=== PATIENT | female | born 1965 | race African-American/Black ===

== ENCOUNTER → 2020-06-05 09:09 | Outpatient (BNVA) | payer MEDICAID, SELFPAY | PROVIDERS: PCP Internal Medicine; Referring Provider Internal Medicine; Visit Provider Nurse Practitioner Family | DX: M54.12 Radiculopathy, cervical region (principal); G56.03 Carpal tunnel syndrome, bilateral upper limbs | CPT/HCPCS: 99202 ==

== ENCOUNTER 2020-09-03 12:34 | Emergency (ER) | payer MEDICAID, SELFPAY ==
--- NOTE | ~2020-09-03 | CT_ITS ---
EXAMINATION: CT ABDOMEN AND PELVIS WITHOUT CONTRAST CLINICAL INFORMATION: Dysuria, hematuria and bilateral flank pain COMPARISON: None TECHNIQUE: Multidetector volumetric imaging was performed from the superior aspect of the liver through the pubic symphysis. Sagittal and coronal reformatted images were obtained on the technologist's workstation. This CT examination was performed using dose optimization techniques as appropriate, variously including the following: *Automated exposure control *Adjustment of mA and/or kV according to patient size (this includes techniques or standardized protocols for targeted exams where dose is matched to indication/reason for exam; i.e. extremities or head) *Use of iterative reconstruction technique DLP: 474 mGy-cm FINDINGS: LUNG BASES: The heart size is normal. There is a small 1.4 cm cyst right lower lobe. LIVER, GALLBLADDER, AND BILIARY TREE: The liver is normal in size, shape, and attenuation. No focal hepatic lesion or biliary ductal dilatation is present. The gallbladder is unremarkable with no evidence of radiopaque gallstones, gallbladder wall thickening, or obvious pericholecystic inflammatory changes. PANCREAS: Unremarkable. SPLEEN: Unremarkable. ADRENAL GLANDS: Unremarkable. KIDNEYS AND URETERS: The kidneys are normal in size, shape, and attenuation. No hydronephrosis, hydroureter, or calculi seen. No perinephric stranding. BLADDER: Unremarkable. GASTROINTESTINAL TRACT: There is moderate scattered stool seen throughout the colon without disc distention. The small bowel loops are normal caliber. Appendix is normal caliber. No inflammatory process seen in the abdomen. ABDOMINAL WALL: There is a small apical hernia containing fat. LYMPH NODES: No abnormal lymph nodes seen. VASCULAR: Unremarkable. PELVIC VISCERA: The uterus is anteverted and appears unremarkable. Scattered phleboliths are seen in pelvis. There is no free fluid. OSSEOUS STRUCTURES: There is mild ventral spondylosis L3-L4, L2-L3 disc levels. CT/CT abdomen pelvis wo con IMPRESSION: No acute intraabdominal process seen. No radiopaque renal calculi or hydroureteronephrosis. Mild constipation.
[2020-09-03 12:45] VITALS: BP 113/74; PULSE 69; RESP 18; TEMP 36.8; O2SAT 98; BMI 22.7
[2020-09-03] MEDS: 0.9 % Sodium Chloride 1,000 ML 999 ML IV (13:28)
--- NOTE | 2020-09-03 13:33 | PC.NURSE ---
THIS RN WAS PRESENT FOR RECTAL EXAM. PT TOLERATED PROCEDURE WELL.
--- NOTE | 2020-09-03 13:38 | ED_ITS ---
HPI - General Adult General Chief complaint: Abdominal Pain <KEY Victoria - Last Filed: 09/03/20 21:30> Stated complaint: abd pain <KEY Victoria - Last Filed: 09/03/20 21:30> Time Seen by Provider: 09/03/20 13:00 <KEY Victoria - Last Filed: 09/03/20 21:30> Source: patient <KEY Victoria - Last Filed: 09/03/20 21:30> Mode of arrival: ambulatory <KEY Victoria - Last Filed: 09/03/20 21:30> Limitations: no limitations <KEY Victoria - Last Filed: 09/03/20 21:30> History of Present Illness HPI narrative: Patient presents to the ED for bilateral flank pain, dysuria, no hematuria. Patient states having flank pain for the past week on the past 2 days with slight hematuria. Patient states her urine seems more concentrated. Patient states history of kidney stones over 12 years ago. Patient states also she thinks she had episode of rectal bleeding while on the toilet. Patient states history of hemorrhoids. Patient states 2 years ago she had colonoscopy which showed she had polyps. Patient denies any weight loss, vomiting blood or profuse rectal bleeding. Patient states she has had intermittent rectal bleeding due to hemorrhoids for over 1 year and her PCP is aware. <KEY Victoria - Last Filed: 09/03/20 21:30> Related Data Home medications: Home Medications Medication Instructions Recorded Confirmed cyclobenzaprine 5 mg tablet 5 mg PO TID PRN 06/05/20 gabapentin 100 mg capsule 100 mg PO TID 06/05/20 ibuprofen 600 mg tablet 600 mg PO TID 06/05/20 lidocaine 5 % topical patch 1 patch TOPICAL DAILY 06/05/20 magnesium oxide 500 mg capsule 500 mg PO DAILY 06/05/20 sertraline 100 mg tablet 100 mg PO DAILY 06/05/20 Previous Rx's Medication Instructions Recorded ondansetron HCl [Zofran] 4 mg PO Q6H PRN #8 tab 09/03/20 polyethylene glycol 3350 [Miralax] 17 g PO DAILY 4 Days #4 ea 09/03/20 tramadol 50 mg PO TID PRN #6 tab 09/03/20 <KEY Victoria - Last Filed: 09/03/20 21:30> Allergies/adverse reactions: Allergies Allergy/AdvReac Type Severity Reaction Status Date / Time penicillamine [PENICILLAMINE] Allergy Intermediate HIVES Verified 09/03/20 12:45 tomato [TOMATO] Allergy Unknown UNKNOWN Verified 09/03/20 12:45 <KEY Victoria Last Filed: 09/03/20 21:30> Review of Systems Review of Systems: Yes all other systems are reviewed and are negative <KEY Victoria - Last Filed: 09/03/20 21:30> Constitutional: Constitutional: Reports as per HPI and Reports no additional constitutional complaints <KEY Victoria Last Filed: 09/03/20 21:30> Eyes: Eyes: Reports as per HPI and Reports no additional eye complaints <KEY Victoria - Last Filed: 09/03/20 21:30> ENT: Reports system reviewed and no additional complaints, except as documented and Reports as per HPI <KEY Victoria Last Filed: 09/03/20 21:30> Cardiovascular: Cardiovascular: Reports as per HPI and Reports no additional cardiovascular complaints <KEY iVctoria Last Filed: 09/03/20 21:30> Respiratory: Respiratory: Reports as per HPI and Reports no additional respiratory complaints <KEY Victoria Last Filed: 09/03/20 21:30> Gastrointestinal: Gastrointestinal: Reports as per HPI, Reports no additional gastrointestinal complaints and Reports abdominal pain (Low abdominal pain. Bilateral flank pain) <KEY Victoria Last Filed: 09/03/20 21:30> Genitourinary: Genitourinary: Reports no additional female genitourinary co mplaints, Reports as per HPI, Reports hematuria, Reports dysuria and Reports flank pain <KEY Victoria Last Filed: 09/03/20 21:30> Musculoskeletal: Musculoskeletal: Reports no additional musculoskeletal complaints and Reports as per HPI <KEY Victoria Last Filed: 09/03/20 21:30> Neurologic: Reports system reviewed and no additional complaints, except as documented and Reports as per HPI <KEY Victoria Last Filed: 09/03/20 21:30> Psychiatric: Psychiatric: Reports no additional psychiatric complaints and Reports as per HPI <KEY Victoria - Last Filed: 09/03/20 21:30> [facility] Past Medical History Medical History: Medical History (Updated 09/04/20 @ 00:01 by Antoni Bazan) Anxiety Depression Fibromyalgia Left renal mass <KEY Victoria - Last Filed: 09/03/20 21:30> Surgical History: Surgical History (Updated 09/03/20 @ 12:49 by Mary Woodward) H/O tubal ligation <KEY Victoria - Last Filed: 09/03/20 21:30> Social History Social History: Social History Advance Directives: No Advance Directives Information Provided: No <KEY Victoria - Last Filed: 09/03/20 21:30> Physical Exam Vital Signs: Vital Signs: Last Vital Signs Temp 98.7 F 09/03/20 15:25 Pulse 58 09/03/20 15:25 Resp 16 09/03/20 15:25 BP 125/84 09/03/20 15:25 Pulse Ox 100 09/03/20 15:25 Body Mass Index 22.7 <KEY Victoria - Last Filed: 09/03/20 21:30> Vital Signs: Last Vital Signs Temp 98.7 F 09/03/20 15:25 Pulse 58 09/03/20 15:25 Resp 16 09/03/20 15:25 BP 125/84 09/03/20 15:25 Pulse Ox 100 09/03/20 15:25 Body Mass Index 22.7 <Uche Lu MD - Last Filed: 09/23/20 08:04> Const: General: cooperative, healthy appearing, comfortable, no acute distress, well developed, alert, awake and Physically active <KEY Victoria - Last Filed: 09/03/20 21:30> Orientation/consciousness: patient oriented x3 <KEY Victoria Last F iled: 09/03/20 21:30> HENMT: Head: Yes normal to inspection, Yes No palpable skull fracture present, Yes normocephalic and Yes atraumatic <KEY Victoria - Last Filed: 09/03/20 21:30> Eyes: General: appearance normal, both eyes and all related structures <KEY Victoria - Last Filed: 09/03/20 21:30> Neck: Neck: Yes normal visual inspection, Yes full ROM, Yes no lymphadenopathy, Yes no meningeal signs, Yes trachea midline, Yes supple and No tender <KEY Victoria Last Filed: 09/03/20 21:30> Chest: Chest palpation & inspection: normal inspection of the chest and normal palpation of entire chest wall <KEY Victoria Last Filed: 09/03/20 21:30> Resp: Effort & Inspection: normal respiratory effort and able to speak in complete sentences <KEY Victoria Last Filed: 09/03/20 21:30> Auscultation: clear to auscultation bilaterally <KEY Victoria Helio ed: 09/03/20 21:30> Cardio: Jugular venous distension: no JVD <KEY Victoria Last Filed: 09/03/20 21:30> Heart sounds: S1 normal heart sound present and S2 normal heart sound present <KEY Victoria Last Filed: 09/03/20 21:30> GI: Other: Rectal exam negative for any vu blood. Stool is brown <KEY Victoria Last Filed: 09/03/20 21:30> Inspection: Yes normal to inspection and No abdominal wall ecchymosis <KEY Victoria Last Filed: 09/03/20 21:30> Palpation (GI): not soft, not firm, Tenderness to palpation present (GI) in the LLQ, no guarding and not rigid <KEY Victoria Last Filed: 09/03/20 21:30> : General: Yes CVA tenderness (right) <KEY Victoria Last Filed: 21:30> Back/Spine/Pelvis: Back: CVA tenderness (right) <KEY Victoria Last Filed: 09/03/20 21:30> Skin: General skin exam: no rashes or lesions noted and elasticity normal <KEY Victoria Last Filed: 09/03/20 21:30> Neuro: General: patient oriented x3, gait normal, no meningeal signs and CN's II-XI intact bilaterally <KEY Victoria Last Filed: 09/03/20 21:30> Extrem: General: Yes normal to inspection and Yes full ROM <KEY Victoria - Last Filed: 09/03/20 21:30> Psych: Appearance: grossly normal, well kempt and not disheveled <KEY Victoria - Last Filed: 09/03/20 21:30> Course Course Course Narrative: Patient have urinalysis, basic labs, and occult stool guaiac sent. <KEY Victoria - Last Filed: 09/03/20 21:30> I have reviewed the chart <Uche Lu MD - Last Filed: 09/23/20 08:04> Reevaluation(s) Reevaluation #1: Patient occult stool came back negative. Patient's urine shows blood so patient was sent for CT scan of abdomen and pelvis. CT scan abdomen pelvis negative for kidney stones, ureteral stones, pyelonephritis, appendicitis, colitis, any other intra-abdominal/pelvic process. Patient given Toradol for pain relief. She states she is not sexually active and is celebate. Patient is menopausal. Patient was Asked to confirm is bleeding came from urethral or vaginal vault and patient states blood is coming from urethra. Patient states she only sees blood when she urinated. Does not want pelvic exam. Patient was informed if she starts having actual vaginal bleeding then she must follow up with her OBGYN to rule out endometrial cancer. Abdominal CT scan shows constipation <KEY Victoria - Last Filed: 09/03/20 21:30> Time: 16:16 <KEY Victoria - Last Filed: 09/03/20 21:30> Medical Decision Making MDM Narrative Medical decision making narrative: Hematuria. Abdominal pain <KEY Victoria - Last Filed: 09/03/20 21:30> Lab Data Result diagrams: : 09/03/20 13:27 09/03/20 13:27 <KEY Victoria - Last Filed: 09/03/20 21:30> Labs: Lab Results 09/03/20 09/03/20 09/03/20 Range/Units 13:01 13:10 13:27 WBC 5.0 (4.8-10.8) X10*3/uL RBC 4.32 (4.20-5.50) X10*6/uL Hgb 13.1 (12.0-16.0) g/dl Hct 39.7 (37-47) % MCV 91.9 (80-98) fL MCH 30.3 (27.0-33.0) pg MCHC 33.0 (31.0-35.0) g/dl RDW 12.9 (11.0-16.0) % Plt Count 264 (160-400) X10*3/uL MPV 9.5 (9.4-12.3) fL Immature Gran % (Auto) 0.2 (0.0-0.4) % Neut % (Auto) 45.7 (45-73) % Lymph % (Auto) 40.8 H (20-40) % [place] % (Auto) 10.5 (2-11) % Eos % (Auto) 2.0 (0-4) % Baso % (Auto) 0.8 (0-2) % Lymph # (Auto) 2.0 (1.2-4.9) X10*3/uL [place] # (Auto) 0.5 (0.1-1.2) X10*3/uL Eos # (Auto) 0.1 (0.0-0.4) X10*3/uL Baso # (Auto) 0.0 (0.0-0.2) X10*3/uL Abs Immat Gran (auto) 0.01 (0.00-0.03) X10*3/uL Absolute Neuts (auto) 2.3 (2.0-8.3) X10*3/uL Absolute Nucleated RBC 0.000 (0.0-0.012) X10*3/uL Nucleated RBC % (auto) 0.0 (0.0-0.2) /100WBC PT (10.8-13.0) SEC INR (0.9-1.1) APTT (24.1-38.0) SEC Sodium (135-145) mmol/L Potassium (3.3-5.1) mmol/L Chloride (96-108) mmol/L Carbon Dioxide (22-29) mmol/L Anion Gap (12-20) BUN (9-16) mg/dL Creatinine (0.5-1.4) mg/dL Estim Creat Clear Calc Estimated GFR Random Glucose (60-115) mg/dL Calcium (8.4-10.2) mg/dL Total Bilirubin (0.0-1.0) mg/dL AST (5-31) U/L ALT (0-31) U/L Alkaline Phosphatase (39-117) U/L Total Protein (6.5-8.0) g/dL Albumin (3.5-5.0) g/dL Urine Color YELLOW Urine Appearance CLOUDY Urine pH 6.5 (5.0-8.0) Ur Specific [place] 1.010 (1.005-1.025) Urine Protein TRACE (NEG-TRACE) MG/DL Urine Glucose (UA) NEG (NEG) MG/DL Urine Ketones NEG (NEG) MG/DL Urine Blood 3+ H (NEG) Urine Nitrite NEG (NEG) Ur Leukocyte Esterase NEG (NEG) Urine RBC 76-150 H (0) /HPF Urine WBC 0-2 (0-4) /HPF Ur Squamous Epith Cells 1+ /LPF Urine Bacteria NONE /LPF Stool Occult Blood NEG (NEG) 09/03/20 09/03/20 Range/Units 13:27 13:27 WBC (4.8-10.8) X10*3/uL RBC (4.20-5.50) X10*6/uL Hgb (12.0-16.0) g/dl Hct (37-47) % MCV (80-98) fL MCH (27.0-33.0) pg MCHC (31.0-35.0) g/dl RDW (11.0-16.0) % Plt Count (160-400) X10*3/uL MPV (9.4-12.3) fL Immature Gran % (Auto) (0.0-0.4) % Neut % (Auto) (45-73) % Lymph % (Auto) (20-40) % [place] % (Auto) (2-11) % Eos % (Auto) (0-4) % Baso % (Auto) (0-2) % Lymph # (Auto) (1.2-4.9) X10*3/uL [place] # (Auto) (0.1-1.2) X10*3/uL Eos # (Auto) (0.0-0.4) X10*3/uL Baso # (Auto) (0.0-0.2) X10*3/uL Abs Immat Gran (auto) (0.00-0.03) X10*3/uL Absolute Neuts (auto) (2.0-8.3) X10*3/uL Absolute Nucleated RBC (0.0-0.012) X10*3/uL Nucleated RBC % (auto) (0.0-0.2) /100WBC PT 11.7 (10.8-13.0) SEC INR 1.0 (0.9-1.1) APTT 38.5 H (24.1-38.0) SEC Sodium 141 (135-145) mmol/L Potassium 4.1 (3.3-5.1) mmol/L Chloride 107 (96-108) mmol/L Carbon Dioxide 26 (22-29) mmol/L Anion Gap 12 (12-20) BUN 10 (9-16) mg/dL Creatinine 0.72 (0.5-1.4) mg/dL Estim Creat Clear Calc 83.6 Estimated GFR > 60 Random Glucose 78 (60-115) mg/dL Calcium 9.2 (8.4-10.2) mg/dL Total Bilirubin 0.6 (0.0-1.0) mg/dL AST 15 (5-31) U/L ALT 6 (0-31) U/L Alkaline Phosphatase 78 (39-117) U/L Total Protein 7.7 (6.5-8.0) g/dL Albumin 4.6 (3.5-5.0) g/dL Urine Color Urine Appearance Urine pH (5.0-8.0) Ur Specific [place] (1.005-1.025) Urine Protein (NEG-TRACE) MG/DL Urine Glucose (UA) (NEG) MG/DL Urine Ketones (NEG) MG/DL Urine Blood (NEG) Urine Nitrite (NEG) Ur Leukocyte Esterase (NEG) Urine RBC (0) /HPF Urine WBC (0-4) /HPF Ur Squamous Epith Cells /LPF Urine Bacteria /LPF Stool Occult Blood (NEG) <KEY Victoria - Last Filed: 09/03/20 21:30> Lab Results 09/03/20 09/03/20 09/03/20 Range/Units 13:01 13:10 13:27 WBC 5.0 (4.8-10.8) X10*3/uL RBC 4.32 (4.20-5.50) X10*6/uL Hgb 13.1 (12.0-16.0) g/dl Hct 39.7 (37-47) % MCV 91.9 (80-98) fL MCH 30.3 (27.0-33.0) pg MCHC 33.0 (31.0-35.0) g/dl RDW 12.9 (11.0-16.0) % Plt Count 264 (160-400) X10*3/uL MPV 9.5 (9.4-12.3) fL Immature Gran % (Auto) 0.2 (0.0-0.4) % Neut % (Auto) 45.7 (45-73) % Lymph % (Auto) 40.8 H (20-40) % [place] % (Auto) 10.5 (2-11) % Eos % (Auto) 2.0 (0-4) % Baso % (Auto) 0.8 (0-2) % Lymph # (Auto) 2.0 (1.2-4.9) X10*3/uL [place] # (Auto) 0.5 (0.1-1.2) X10*3/uL Eos # (Auto) 0.1 (0.0-0.4) X10*3/uL Baso # (Auto) 0.0 (0.0-0.2) X10*3/uL Abs Immat Gran (auto) 0.01 (0.00-0.03) X10*3/uL Absolute Neuts (auto) 2.3 (2.0-8.3) X10*3/uL Absolute Nucleated RBC 0.000 (0.0-0.012) X10*3/uL Nucleated RBC % (auto) 0.0 (0.0-0.2) /100WBC PT (10.8-13.0) SEC INR (0.9-1.1) APTT (24.1-38.0) SEC Sodium (135-145) mmol/L Potassium (3.3-5.1) mmol/L Chloride (96-108) mmol/L Carbon Dioxide (22-29) mmol/L Anion Gap (12-20) BUN (9-16) mg/dL Creatinine (0.5-1.4) mg/dL Estim Creat Clear Calc Estimated GFR Random Glucose (60-115) mg/dL Calcium (8.4-10.2) mg/dL Total Bilirubin (0.0-1.0) mg/dL AST (5-31) U/L ALT (0-31) U/L Alkaline Phosphatase (39-117) U/L Total Protein (6.5-8.0) g/dL Albumin (3.5-5.0) g/dL Urine Color YELLOW Urine Appearance CLOUDY Urine pH 6.5 (5.0-8.0) Ur Specific [place] 1.010 (1.005-1.025) Urine Protein TRACE (NEG-TRACE) MG/DL Urine Glucose (UA) NEG (NEG) MG/DL Urine Ketones NEG (NEG) MG/DL Urine Blood 3+ H (NEG) Urine Nitrite NEG (NEG) Ur Leukocyte Esterase NEG (NEG) Urine RBC 76-150 H (0) /HPF Urine WBC 0-2 (0-4) /HPF Ur Squamous Epith Cells 1+ /LPF Urine Bacteria NONE /LPF Stool Occult Blood NEG (NEG) 09/03/20 09/03/20 Range/Units 13:27 13:27 WBC (4.8-10.8) X10*3/uL RBC (4.20-5.50) X10*6/uL Hgb (12.0-16.0) g/dl Hct (37-47) % MCV (80-98) fL MCH (27.0-33.0) pg MCHC (31.0-35.0) g/dl RDW (11.0-16.0) % Plt Count (160-400) X10*3/uL MPV (9.4-12.3) fL Immature Gran % (Auto) (0.0-0.4) % Neut % (Auto) (45-73) % Lymph % (Auto) (20-40) % [place] % (Auto) (2-11) % Eos % (Auto) (0-4) % Baso % (Auto) (0-2) % Lymph # (Auto) (1.2-4.9) X10*3/uL [place] # (Auto) (0.1-1.2) X10*3/uL Eos # (Auto) (0.0-0.4) X10*3/uL Baso # (Auto) (0.0-0.2) X10*3/uL Abs Immat Gran (auto) (0.00-0.03) X10*3/uL Absolute Neuts (auto) (2.0-8.3) X10*3/uL Absolute Nucleated RBC (0.0-0.012) X10*3/uL Nucleated RBC % (auto) (0.0-0.2) /100WBC PT 11.7 (10.8-13.0) SEC INR 1.0 (0.9-1.1) APTT 38.5 H (24.1-38.0) SEC Sodium 141 (135-145) mmol/L Potassium 4.1 (3.3-5.1) mmol/L Chloride 107 (96-108) mmol/L Carbon Dioxide 26 (22-29) mmol/L Anion Gap 12 (12-20) BUN 10 (9-16) mg/dL Creatinine 0.72 (0.5-1.4) mg/dL Estim Creat Clear Calc 83.6 Estimated GFR > 60 Random Glucose 78 (60-115) mg/dL Calcium 9.2 (8.4-10.2) mg/dL Total Bilirubin 0.6 (0.0-1.0) mg/dL AST 15 (5-31) U/L ALT 6 (0-31) U/L Alkaline Phosphatase 78 (39-117) U/L Total Protein 7.7 (6.5-8.0) g/dL Albumin 4.6 (3.5-5.0) g/dL Urine Color Urine Appearance Urine pH (5.0-8.0) Ur Specific [place] (1.005-1.025) Urine Protein (NEG-TRACE) MG/DL Urine Glucose (UA) (NEG) MG/DL Urine Ketones (NEG) MG/DL Urine Blood (NEG) Urine Nitrite (NEG) Ur Leukocyte Esterase (NEG) Urine RBC (0) /HPF Urine WBC (0-4) /HPF Ur Squamous Epith Cells /LPF Urine Bacteria /LPF Stool Occult Blood (NEG) <Uche Lu MD - Last Filed: 09/23/20 08:04> Discharge Plan Discharge Clinical Impression: Hematuria, Bilateral flank pain, Constipation <KEY Victoria - Last Filed: 09/03/20 21:30> Patient Disposition: Home, Self-Care <KEY Victoria - Last Filed: 09/03/20 21:30> Instructions: Constipation (ED), Hematuria (ED), Abdominal Pain (ED), Flank Pain (ED) <KEY Victoria - Last Filed: 09/03/20 21:30> Additional Instructions: Return to the ED immediately for worsening abdominal pain, nausea, vomiting, gross hematuria, urinary/bowel incontinence, paralysis of lower extremities, worsening flank pain, headache, dizziness, chest pain, shortness of breath, inability to tolerate solid food/liquid, or any other concerning symptoms. <KEY Victoria - Last Filed: 09/03/20 21:30> Prescriptions: New polyethylene glycol 3350 [Miralax] 17 gram powder in packet 17 g PO DAILY 4 Days Qty: 4 RF: 0 ondansetron HCl [Zofran] 4 mg tablet 4 mg PO Q6H PRN (Reason: nausea) Qty: 8 RF: 0 tramadol 50 mg tablet 50 mg PO TID PRN (Reason: pain) Qty: 6 RF: 0 <KEY Victoria - Last Filed: 09/03/20 21:30> Referrals: Flory Villar MD [Primary Care Provider] - 2 days (Hematuria) Wong Seth MD [Physician] - 2 days (Hematuria) <KEY Victoria - Last Filed: 09/03/20 21:30> Interventions: ED Discharge Assessment Last Done: 09/03/20 16:50 <KEY Victoria - Last Filed: 09/03/20 21:30> Discharge Date/Time: 09/03/20 16:53 <KEY Victoria - Last Filed: 09/03/20 21:30> Print Language: Ecuadorean <KEY Victoria - Last Filed: 09/03/20 21:30>
[2020-09-03 13:46] LABS: OBS Int Ctl Valid YES; OBS1 NEG (NEG)
[2020-09-03 13:48] LABS: MANUAL DIFF FLAG NO
[2020-09-03 13:54] LABS: Basophils Percent Auto 0.8 % (0-2); Eosinophils Absolute Auto 0.1 X10*3/uL (0.0-0.4); Hematocrit 39.7 % (37-47); Hemoglobin 13.1 g/dl (12.0-16.0); Imm Gran Abs Auto 0.01 X10*3/uL (0.00-0.03); Imm Gran Pct Auto 0.2 % (0.0-0.4); Lymphocytes Percent Auto 40.8 % (20-40); Mean Corpuscular Hemoglobin 30.3 pg (27.0-33.0); Mean Corpuscular Volume 91.9 fL (80-98); Mean Platelet Volume 9.5 fL (9.4-12.3); Monocytes Absolute Auto 0.5 X10*3/uL (0.1-1.2); Monocytes Percent Auto 10.5 % (2-11); Neutrophils Absolute Auto 2.3 X10*3/uL (2.0-8.3); Neutrophils Percent Auto 45.7 % (45-73); Platelet Count 264 X10*3/uL (160-400); Red Blood Count 4.32 X10*6/uL (4.20-5.50); Red Cell Distribution Width 12.9 % (11.0-16.0)
[2020-09-03 13:57] LABS: Prothrombin Time 11.7 SEC (10.8-13.0)
[2020-09-03 14:00] LABS: Partial Thromboplastin Time 38.5 SEC (24.1-38.0)
[2020-09-03 14:03] LABS: Glucose Urine UA NEG (NEG); Leukocyte Esterase Urine NEG (NEG); Nitrite Urine NEG (NEG); PH 6.5 (5.0-8.0); Urine Blood 3+ (NEG); Urine Ketones NEG (NEG); Urine Protein TRACE MG/DL (NEG-TRACE)
[2020-09-03 14:06] LABS: Appearance Urine CLOUDY; Color Urine YELLOW
[2020-09-03 14:17] LABS: Squamous Epithelial Cell Urine 1+ /LPF; WBC Urine 0-2 /HPF (0-4)
[2020-09-03 14:18] LABS: Alanine Aminotransferase 6 U/L (0-31); Albumin Level 4.6 g/dL (3.5-5.0); Alkaline Phosphatase 78 U/L (39-117); Anion Gap 12 (12-20); Aspartate Amino Transferase 15 U/L (5-31); Bilirubin Total 0.6 mg/dL (0.0-1.0); Blood Urea Nitrogen 10 mg/dL (9-16); Calcium 9.2 mg/dL (8.4-10.2); Carbon Dioxide 26 mmol/L (22-29); Chloride 107 mmol/L (96-108); Creatinine Clr Calc Pharmacy 83.6; Estimated Glomerular Filt Rate > 60; Glucose Random 78 mg/dL (60-115); Potassium 4.1 mmol/L (3.3-5.1); Sodium 141 mmol/L (135-145); Total Protein 7.7 g/dL (6.5-8.0)
[2020-09-03 15:25] VITALS: BP 125/84; PULSE 58; RESP 16; TEMP 37.1; O2SAT 100
[2020-09-03] MEDS: Ketorolac Tromethamine 30 MG/ML VIAL IVPUSH (16:17)
== END 2020-09-03 16:53 | disposition home or self-care (01) ==
PROVIDERS: Physician Assistant; Emergency Provider Emergency Medicine; PCP Internal Medicine
DX: R31.0 Gross hematuria (principal); K59.00 Constipation, unspecified; R10.9 Unspecified abdominal pain; Z87.442 Personal history of urinary calculi
CPT/HCPCS: 36415; 74176; 80053; 81001; 81003; 82272; 85025; 85610; 85730; 96361; 96374; 99284; J1885

== ENCOUNTER 2020-10-15 14:05 | Outpatient (REF) | payer MEDICAID, SELFPAY ==
--- NOTE | ~2020-10-15 | US_ITS ---
EXAMINATION: ULTRASOUND PELVIS COMPLETE CLINICAL INFORMATION: DUB COMPARISON: None TECHNIQUE: Transabdominal and transvaginal ultrasound of pelvis is performed. FINDINGS: The uterus is anteverted measuring 7.8 cm in length, 3.3 cm AP and 4.7 cm in transverse dimension. The myometrium is heterogeneous but no focal lesions seen. The endometrium is heterogeneous with subcentimeter cystic areas within. Endometrial thickness measures 0.6 cm. There are small anechoic cyst in the cervix. In addition there are echogenic shadowing area in the cervix measuring 0.7 x 0.5 x 0.6 cm. The left ovary measures 2.8 x 1.3 x 1.8 cm and volume 3.2 mL. Previously it measured 2.7 x 1.5 x 1 0.8 mL and volume 4.0 mL. Right ovary measures 3.4 x 1.2 x 1.8 cm and volume 4.0 mL. Previously measured 3.0 x 1.7 x 2.3 cm and volume 6.1 mL. There is no free fluid in the cul-de-sac. US/US pelvic complete IMPRESSION: Anteverted uterus with heterogenous appearing endometrium with small subcentimeter cyst. Echogenic shadowing area in the cervix, ? calcification.
--- NOTE | ~2020-10-15 | US_ITS ---
EXAMINATION: ULTRASOUND PELVIS COMPLETE CLINICAL INFORMATION: DUB COMPARISON: None TECHNIQUE: Transabdominal and transvaginal ultrasound of pelvis is performed. FINDINGS: The uterus is anteverted measuring 7.8 cm in length, 3.3 cm AP and 4.7 cm in transverse dimension. The myometrium is heterogeneous but no focal lesions seen. The endometrium is heterogeneous with subcentimeter cystic areas within. Endometrial thickness measures 0.6 cm. There are small anechoic cyst in the cervix. In addition there are echogenic shadowing area in the cervix measuring 0.7 x 0.5 x 0.6 cm. The left ovary measures 2.8 x 1.3 x 1.8 cm and volume 3.2 mL. Previously it measured 2.7 x 1.5 x 1 0.8 mL and volume 4.0 mL. Right ovary measures 3.4 x 1.2 x 1.8 cm and volume 4.0 mL. Previously measured 3.0 x 1.7 x 2.3 cm and volume 6.1 mL. There is no free fluid in the cul-de-sac. US/US transvaginal IMPRESSION: Anteverted uterus with heterogenous appearing endometrium with small subcentimeter cyst. Echogenic shadowing area in the cervix, ? calcification.
== END 2020-10-15 14:06 | disposition home or self-care (01) ==
LOC: HO.HMGCX 14:05
PROVIDERS: PCP Internal Medicine; Visit Provider Internal Medicine
DX: R10.2 Pelvic and perineal pain (principal)
CPT/HCPCS: 76830; 76856

== ENCOUNTER 2020-10-17 09:49 | Emergency (ER) | payer MEDICAID, SELFPAY ==
[2020-10-17 10:02] VITALS: BP 122/72; BP 152/89; PULSE 73; PULSE 77; RESP 16; O2SAT 100; O2SAT 99; BMI 21.1
--- NOTE | 2020-10-17 11:25 | ED_ITS ---
HPI - Abdominal Pain General Chief Complaint: Abdominal Pain <Samantha Sanders PA-C - Last Filed: 10/17/20 13:18> Stated Complaint: N/V <Samantha Sanders PA-C - Last Filed: 10/17/20 13:18> Time Seen by Provider: 10/17/20 11:13 <Samantha Sanders PA-C - Last Filed: 10/17/20 13:18> Source: patient <Samantha Sanders PA-C - Last Filed: 10/17/20 13:18> Mode of arrival: ambulatory <Samantha Sanders PA-C - Last Filed: 10/17/20 13:18> Limitations: no limitations <Samantha Sanders PA-C - Last Filed: 10/17/20 13:18> History of Present Illness HPI narrative: Patient is a 55-year-old female who has been in menopause for just over 1 year with a past medical history of fibromyalgia left renal mass tubal ligation depression and anxiety complaining of a fullness in her vagina as well as vaginal pain. She says she had some scant bleeding from her vagina but she also has hemorrhoids and thinks she had some rectal bleeding she also states she has been vomiting coffee-ground emesis. Patient states she had an colonoscopy and an upper endoscopy done within the last few weeks in all were normal except for a few polyps. She also had a pelvic ultrasound yesterday. She states she is not sexually active x4 years. Denies fevers, nausea, diarrhea or constipation. <Samantha Sanders PA-C - Last Filed: 10/17/20 13:18> Related Data Home Medications: Home Medications Medication Instructions Recorded Confirmed cyclobenzaprine 5 mg tablet 5 mg PO TID PRN 06/05/20 11/01/20 gabapentin 100 mg capsule 100 mg PO TID 06/05/20 11/01/20 ibuprofen 600 mg tablet 600 mg PO TID 06/05/20 11/01/20 lidocaine 5 % topical patch 1 patch TOPICAL DAILY 06/05/20 11/01/20 magnesium oxide 500 mg capsule 500 mg PO DAILY 06/05/20 11/01/20 sertraline 100 mg tablet 100 mg PO DAILY 06/05/20 11/01/20 albuterol sulfate [ProAir HFA] 2 puff INHALATION QID 05/14/21 05/14/21 atorvastatin 1 tab PO DAILY 11/01/20 11/01/20 cyanocobalamin (vitamin B-12) 1 tab SUBLINGUAL DAILY 11/01/20 11/01/20 fluticasone propionate [Flovent 2 puff INHALATION BID 11/01/20 11/01/20 HFA] Previous Rx's Medication Instructions Recorded ondansetron HCl [Zofran] 4 mg PO Q6H PRN #8 tab 09/03/20 polyethylene glycol 3350 [Miralax] 17 g PO DAILY 4 Days #4 ea 09/03/20 tramadol 50 mg PO TID PRN #6 tab 09/03/20 metronidazole 500 mg tablet 500 mg PO BID 7 Days #14 tab 10/23/20 <Samantha Sanders PA-C - Last Filed: 10/17/20 13:18> Allergies/Adverse Reactions: Allergies Allergy/AdvReac Type Severity Reaction Status Date / Time penicillamine [PENICILLAMINE] Allergy Intermediate HIVES Verified 11/05/20 13:11 tomato [TOMATO] Allergy Unknown UNKNOWN Verified 11/05/20 13:11 <Samantha Sanders PA-C - Last Filed: 10/17/20 13:18> Review of Systems Review of Systems Yes all other systems are reviewed and are negative <AURORA Collado - Last Filed: 10/17/20 13:18> Physical Exam Vital Signs: Vital Signs: Last Vital Signs Pulse 73 10/17/20 10:02 Resp 16 10/17/20 10:02 BP 122/72 10/17/20 10:02 Pulse Ox 99 10/17/20 10:02 Body Mass Index 21.1 <Samantha Sanders PA-C - Last Filed: 10/17/20 13:18> Vital Signs: Last Vital Signs Pulse 73 10/17/20 10:02 Resp 16 10/17/20 10:02 BP 122/72 10/17/20 10:02 Pulse Ox 99 10/17/20 10:02 Body Mass Index 21.1 <Uche Lu MD - Last Filed: 11/05/20 13:28> Const: General: cooperative, healthy appearing, comfortable and in distress (Secondary to pain) mild <Samantha Sanders PA-C - Last Filed: 10/17/20 13:18> Nutritional Appearance: average body habitus <KEY ColladoYayoTandemLaunch Last Filed: 10/17/20 13:18> Orientation/consciousness: patient oriented x3 <KEY ColladoYayoTandemLaunch Last Filed: 10/17/20 13:18> Eyes: General: appearance normal, both eyes and all related structures <KEY ColladoYayoTandemLaunch Last Filed: 10/17/20 13:18> Pupils: Equal, round and reactive pupils present <KEY ColladoYayoTandemLaunch Last Filed: 10/17/20 13:18> Neck: Neck: Yes normal visual inspection and Yes full ROM <KEY ColladoValencia IEMO Last Filed: 10/17/20 13:18> Resp: Effort & Inspection: normal respiratory effort and able to speak in complete sentences <KEY ColladoYayoTandemLaunch Last Filed: 10/17/20 13:18> GI: Inspection: Yes normal to inspection <KEY ColladoYayoTandemLaunch Last Filed: 10/17/20 13:18> Palpation (GI): Soft to palpation and nontender <KEY ColladoNaviswiss Last Filed: 10/17/20 13:18> : Speculum Exam - Vagina: normal appearance of the vagina, normal palpation, normal vaginal discharge, not erythematous, no foreign bodies, no lacerations, no lesions, No vaginal bleeding, no masses, no swelling and nontender <KEY ColladoYayoTandemLaunch Last Filed: 10/17/20 13:18> Bimanual exam- vagina & uterus: normal palpation <KEY ColladoYayoTandemLaunch Last Filed: 10/17/20 13:18> OB/external & speculum: no foreign bodies and vaginal bleeding <KEY ColladoNaviswiss Last Filed: 10/17/20 13:18> Neuro: General: patient oriented x3 <KEY ColladoYayoTandemLaunch Last Filed: 10/17/20 13:18> Cranial nerves: Yes Equal, round and reactive pupils present <KEY ColladoNaviswiss Last Filed: 10/17/20 13:18> Course Course Course Narrative: Patient is a 55-year-old female who has been in menopause for just over 1 year with a past medical history of fibromyalgia left renal mass tubal ligation depression and anxiety complaining of a fullness in her vagina as well as vaginal pain. VSS. Pelvic exam was normal, stool guaiac negative. CBC normal, pending and urine and chemistry. Patient given 2 mg morphine and is feeling better. <Samantha Sanders PA-C - Last Filed: 10/17/20 13:18> I have reviewed the chart <Uche Lu MD - Last Filed: 11/05/20 13:28> Reevaluation(s) Reevaluation #1: Chemistry panel within normal limits, UA negative for infection. <Samantha Sanders PA-C - Last Filed: 10/17/20 13:18> Time: 12:59 <Samantha Sanders PA-C - Last Filed: 10/17/20 13:18> MDM - Abdominal Pain Lab Data Result diagrams: : 10/17/20 12:03 10/17/20 12:03 <Samantha Sanders PA-C - Last Filed: 10/17/20 13:18> Labs: Lab Results 10/17/20 10/17/20 10/17/20 Range/Units 12:03 12:03 12:26 WBC 10.3 (4.8-10.8) X10*3/uL RBC 4.14 L (4.20-5.50) X10*6/uL Hgb 12.5 (12.0-16.0) g/dl Hct 38.5 (37-47) % MCV 93.0 (80-98) fL MCH 30.2 (27.0-33.0) pg MCHC 32.5 (31.0-35.0) g/dl RDW 12.7 (11.0-16.0) % Plt Count 259 (160-400) X10*3/uL MPV 9.2 L (9.4-12.3) fL Immature Gran % (Auto) 0.2 (0.0-0.4) % Neut % (Auto) 85.2 H (45-73) % Lymph % (Auto) 7.6 L (20-40) % [place] % (Auto) 6.6 (2-11) % Eos % (Auto) 0.1 (0-4) % Baso % (Auto) 0.3 (0-2) % Lymph # (Auto) 0.8 L (1.2-4.9) X10*3/uL [place] # (Auto) 0.7 (0.1-1.2) X10*3/uL Eos # (Auto) 0.0 (0.0-0.4) X10*3/uL Baso # (Auto) 0.0 (0.0-0.2) X10*3/uL Abs Immat Gran (auto) 0.02 (0.00-0.03) X10*3/uL Absolute Neuts (auto) 8.7 H (2.0-8.3) X10*3/uL Absolute Nucleated RBC 0.000 (0.0-0.012) X10*3/uL Nucleated RBC % (auto) 0.0 (0.0-0.2) /100WBC Sodium 141 (135-145) mmol/L Potassium 4.9 (3.3-5.1) mmol/L Chloride 105 (96-108) mmol/L Carbon Dioxide 27 (22-29) mmol/L Anion Gap 14 (12-20) BUN 11 (9-16) mg/dL Creatinine 1.24 (0.5-1.4) mg/dL Estim Creat Clear Calc 47.9 Estimated GFR 45 Random Glucose 100 (60-115) mg/dL Calcium 9.9 D (8.4-10.2) mg/dL Urine Color YELLOW Urine Appearance HAZY Urine pH 7.5 (5.0-8.0) Ur Specific [place] 1.015 (1.005-1.025) Urine Protein NEG (NEG-TRACE) MG/DL Urine Glucose (UA) NEG (NEG) MG/DL Urine Ketones NEG (NEG) MG/DL Urine Blood 1+ H (NEG) Urine Nitrite NEG (NEG) Ur Leukocyte Esterase NEG (NEG) Urine RBC 5-9 H (0) /HPF Urine WBC 0 (0-4) /HPF Ur Squamous Epith Cells TRACE /LPF Amorphous Sediment 2+ /LPF Urine Bacteria NONE /LPF Stool Occult Blood (NEGATIVE) 10/17/20 Range/Units 12:36 WBC (4.8-10.8) X10*3/uL RBC (4.20-5.50) X10*6/uL Hgb (12.0-16.0) g/dl Hct (37-47) % MCV (80-98) fL MCH (27.0-33.0) pg MCHC (31.0-35.0) g/dl RDW (11.0-16.0) % Plt Count (160-400) X10*3/uL MPV (9.4-12.3) fL Immature Gran % (Auto) (0.0-0.4) % Neut % (Auto) (45-73) % Lymph % (Auto) (20-40) % [place] % (Auto) (2-11) % Eos % (Auto) (0-4) % Baso % (Auto) (0-2) % Lymph # (Auto) (1.2-4.9) X10*3/uL [place] # (Auto) (0.1-1.2) X10*3/uL Eos # (Auto) (0.0-0.4) X10*3/uL Baso # (Auto) (0.0-0.2) X10*3/uL Abs Immat Gran (auto) (0.00-0.03) X10*3/uL Absolute Neuts (auto) (2.0-8.3) X10*3/uL Absolute Nucleated RBC (0.0-0.012) X10*3/uL Nucleated RBC % (auto) (0.0-0.2) /100WBC Sodium (135-145) mmol/L Potassium (3.3-5.1) mmol/L Chloride (96-108) mmol/L Carbon Dioxide (22-29) mmol/L Anion Gap (12-20) BUN (9-16) mg/dL Creatinine (0.5-1.4) mg/dL Estim Creat Clear Calc Estimated GFR Random Glucose (60-115) mg/dL Calcium (8.4-10.2) mg/dL Urine Color Urine Appearance Urine pH (5.0-8.0) Ur Specific [place] (1.005-1.025) Urine Protein (NEG-TRACE) MG/DL Urine Glucose (UA) (NEG) MG/DL Urine Ketones (NEG) MG/DL Urine Blood (NEG) Urine Nitrite (NEG) Ur Leukocyte Esterase (NEG) Urine RBC (0) /HPF Urine WBC (0-4) /HPF Ur Squamous Epith Cells /LPF Amorphous Sediment /LPF Urine Bacteria /LPF Stool Occult Blood NEGATIVE (NEGATIVE) <Samantha Sanders PA-C - Last Filed: 10/17/20 13:18> Lab Results 10/17/20 10/17/20 10/17/20 Range/Units 12:03 12:03 12:26 WBC 10.3 (4.8-10.8) X10*3/uL RBC 4.14 L (4.20-5.50) X10*6/uL Hgb 12.5 (12.0-16.0) g/dl Hct 38.5 (37-47) % MCV 93.0 (80-98) fL MCH 30.2 (27.0-33.0) pg MCHC 32.5 (31.0-35.0) g/dl RDW 12.7 (11.0-16.0) % Plt Count 259 (160-400) X10*3/uL MPV 9.2 L (9.4-12.3) fL Immature Gran % (Auto) 0.2 (0.0-0.4) % Neut % (Auto) 85.2 H (45-73) % Lymph % (Auto) 7.6 L (20-40) % [place] % (Auto) 6.6 (2-11) % Eos % (Auto) 0.1 (0-4) % Baso % (Auto) 0.3 (0-2) % Lymph # (Auto) 0.8 L (1.2-4.9) X10*3/uL [place] # (Auto) 0.7 (0.1-1.2) X10*3/uL Eos # (Auto) 0.0 (0.0-0.4) X10*3/uL Baso # (Auto) 0.0 (0.0-0.2) X10*3/uL Abs Immat Gran (auto) 0.02 (0.00-0.03) X10*3/uL Absolute Neuts (auto) 8.7 H (2.0-8.3) X10*3/uL Absolute Nucleated RBC 0.000 (0.0-0.012) X10*3/uL Nucleated RBC % (auto) 0.0 (0.0-0.2) /100WBC Sodium 141 (135-145) mmol/L Potassium 4.9 (3.3-5.1) mmol/L Chloride 105 (96-108) mmol/L Carbon Dioxide 27 (22-29) mmol/L Anion Gap 14 (12-20) BUN 11 (9-16) mg/dL Creatinine 1.24 (0.5-1.4) mg/dL Estim Creat Clear Calc 47.9 Estimated GFR 45 Random Glucose 100 (60-115) mg/dL Calcium 9.9 D (8.4-10.2) mg/dL Urine Color YELLOW Urine Appearance HAZY Urine pH 7.5 (5.0-8.0) Ur Specific [place] 1.015 (1.005-1.025) Urine Protein NEG (NEG-TRACE) MG/DL Urine Glucose (UA) NEG (NEG) MG/DL Urine Ketones NEG (NEG) MG/DL Urine Blood 1+ H (NEG) Urine Nitrite NEG (NEG) Ur Leukocyte Esterase NEG (NEG) Urine RBC 5-9 H (0) /HPF Urine WBC 0 (0-4) /HPF Ur Squamous Epith Cells TRACE /LPF Amorphous Sediment 2+ /LPF Urine Bacteria NONE /LPF Stool Occult Blood (NEGATIVE) 10/17/20 Range/Units 12:36 WBC (4.8-10.8) X10*3/uL RBC (4.20-5.50) X10*6/uL Hgb (12.0-16.0) g/dl Hct (37-47) % MCV (80-98) fL MCH (27.0-33.0) pg MCHC (31.0-35.0) g/dl RDW (11.0-16.0) % Plt Count (160-400) X10*3/uL MPV (9.4-12.3) fL Immature Gran % (Auto) (0.0-0.4) % Neut % (Auto) (45-73) % Lymph % (Auto) (20-40) % [place] % (Auto) (2-11) % Eos % (Auto) (0-4) % Baso % (Auto) (0-2) % Lymph # (Auto) (1.2-4.9) X10*3/uL [place] # (Auto) (0.1-1.2) X10*3/uL Eos # (Auto) (0.0-0.4) X10*3/uL Baso # (Auto) (0.0-0.2) X10*3/uL Abs Immat Gran (auto) (0.00-0.03) X10*3/uL Absolute Neuts (auto) (2.0-8.3) X10*3/uL Absolute Nucleated RBC (0.0-0.012) X10*3/uL Nucleated RBC % (auto) (0.0-0.2) /100WBC Sodium (135-145) mmol/L Potassium (3.3-5.1) mmol/L Chloride (96-108) mmol/L Carbon Dioxide (22-29) mmol/L Anion Gap (12-20) BUN (9-16) mg/dL Creatinine (0.5-1.4) mg/dL Estim Creat Clear Calc Estimated GFR Random Glucose (60-115) mg/dL Calcium (8.4-10.2) mg/dL Urine Color Urine Appearance Urine pH (5.0-8.0) Ur Specific [place] (1.005-1.025) Urine Protein (NEG-TRACE) MG/DL Urine Glucose (UA) (NEG) MG/DL Urine Ketones (NEG) MG/DL Urine Blood (NEG) Urine Nitrite (NEG) Ur Leukocyte Esterase (NEG) Urine RBC (0) /HPF Urine WBC (0-4) /HPF Ur Squamous Epith Cells /LPF Amorphous Sediment /LPF Urine Bacteria /LPF Stool Occult Blood NEGATIVE (NEGATIVE) <Uche Lu MD - Last Filed: 11/05/20 13:28> Discharge Plan Discharge Clinical Impression: Vaginal pain <Samantha Sanders PA-C - Last Filed: 10/17/20 13:18> Patient Disposition: Home, Self-Care <Samantha Sanders PA-C - Last Filed: 10/17/20 13:18> Instructions: Abdominal Pain (ED) <Samantha Sanders PA-C - Last Filed: 10/17/20 13:18> Additional Instructions: As discussed, if you notice your having more vaginal bleeding, it is imperative you follow-up with your OBGYN. During her exam today, no bleeding was noted and your cervix and vagina looks normal upon exam. The rectal test for bleeding was also negative. As you just had a colonoscopy and endoscopy which were normal, you could follow-up with GI if your symptoms continue. <Samantha Sanders PA-C - Last Filed: 10/17/20 13:18> Prescriptions: No Action metronidazole [Flagyl] 500 mg tablet 500 mg PO BID 7 Days Qty: 14 RF: 0 polyethylene glycol 3350 [Miralax] 17 gram powder in packet 17 g PO DAILY 4 Days Qty: 4 RF: 0 ondansetron HCl [Zofran] 4 mg tablet 4 mg PO Q6H PRN (Reason: nausea) Qty: 8 RF: 0 tramadol 50 mg tablet 50 mg PO TID PRN (Reason: pain) Qty: 6 RF: 0 atorvastatin 40 mg tablet 1 tab PO DAILY RF: 0 cyanocobalamin (vitamin B-12) 2,500 mcg tablet, sublingual 1 tab sublingual DAILY RF: 0 albuterol sulfate [ProAir HFA] 90 mcg/actuation HFA aerosol inhaler 2 puff inhalation QID RF: 0 Flovent HFA 110 mcg/actuation HFA aerosol inhaler 2 puff inhalation BID RF: 0 cyclobenzaprine 5 mg tablet 5 mg PO TID PRN (Reason: Muscle Pain) RF: 0 gabapentin 100 mg capsule 100 mg PO TID RF: 0 ibuprofen 600 mg tablet 600 mg PO TID RF: 0 lidocaine 5 % adhesive patch,medicated 1 patch topical DAILY RF: 0 sertraline 100 mg tablet 100 mg PO DAILY RF: 0 magnesium oxide 500 mg capsule 500 mg PO DAILY RF: 0 <Samantha Sanders PA-C - Last Filed: 10/17/20 13:18> Referrals: Flory Villar MD [Primary Care Provider] - 2 days (vaginal pain) <Samantha Sanders PA-C - Last Filed: 10/17/20 13:18> Interventions: ED Discharge Assessment Last Done: 10/17/20 13:39 <Samantha Sanders PA-C - Last Filed: 10/17/20 13:18> Discharge Date/Time: 10/17/20 13:41 <Samantha Sanders PA-C - Last Filed: 10/17/20 13:18> COUNT INCLUDES THE [facility] Past Medical History Medical History: Medical History Anxiety Depression Fibromyalgia Hyperlipidemia Left renal mass <Samantha Sanders PA-C - Last Filed: 10/17/20 13:18> Surgical History: Surgical History H/O tubal ligation Hx of colonoscopy <Samantha Sanders PA-C - Last Filed: 10/17/20 13:18> Social History Social History: Social History Smoking Status: Current every day smoker Packs Per Day: 0.5 Cigarettes Per Day: 10.0 Years Smoked: 25 Patient : No <Samantha Sanders PA-C - Last Filed: 10/17/20 13:18>
[2020-10-17 12:12] LABS: MANUAL DIFF FLAG NO
[2020-10-17] MEDS: Morphine Sulfate 2 MG/ML CARTRIDGE IVPUSH (12:12)
[2020-10-17 12:13] LABS: Basophils Percent Auto 0.3 % (0-2); Eosinophils Percent Auto 0.1 % (0-4); Hematocrit 38.5 % (37-47); Hemoglobin 12.5 g/dl (12.0-16.0); Imm Gran Abs Auto 0.02 X10*3/uL (0.00-0.03); Imm Gran Pct Auto 0.2 % (0.0-0.4); Lymphocytes Absolute Auto 0.8 X10*3/uL (1.2-4.9); Lymphocytes Percent Auto 7.6 % (20-40); Mean Corpuscular HGB Conc 32.5 g/dl (31.0-35.0); Mean Corpuscular Hemoglobin 30.2 pg (27.0-33.0); Mean Platelet Volume 9.2 fL (9.4-12.3); Monocytes Absolute Auto 0.7 X10*3/uL (0.1-1.2); Monocytes Percent Auto 6.6 % (2-11); Neutrophils Absolute Auto 8.7 X10*3/uL (2.0-8.3); Neutrophils Percent Auto 85.2 % (45-73); Platelet Count 259 X10*3/uL (160-400); Red Blood Count 4.14 X10*6/uL (4.20-5.50); Red Cell Distribution Width 12.7 % (11.0-16.0); White Blood Count 10.3 X10*3/uL (4.8-10.8)
[2020-10-17 12:35] LABS: Appearance Urine HAZY; Color Urine YELLOW; Glucose Urine UA NEG (NEG); Leukocyte Esterase Urine NEG (NEG); Nitrite Urine NEG (NEG); PH 7.5 (5.0-8.0); Specific Gravity - Urine 1.015 (1.005-1.025); Urine Blood 1+ (NEG); Urine Ketones NEG (NEG); Urine Protein NEG (NEG-TRACE)
[2020-10-17 12:36] LABS: Anion Gap 14 (12-20); Blood Urea Nitrogen 11 mg/dL (9-16); Calcium 9.9 mg/dL (8.4-10.2); Carbon Dioxide 27 mmol/L (22-29); Chloride 105 mmol/L (96-108); Creatinine Clr Calc Pharmacy 47.9; Estimated Glomerular Filt Rate 45; Glucose Random 100 mg/dL (60-115); Potassium 4.9 mmol/L (3.3-5.1); Sodium 141 mmol/L (135-145)
[2020-10-17 12:41] LABS: OBS Int Ctl Valid YES; OBS1 NEGATIVE (NEGATIVE)
[2020-10-17 13:01] LABS: Amorphous Sediment Urine 2+ /LPF; Squamous Epithelial Cell Urine TRACE /LPF; WBC Urine 0 /HPF (0-4)
== END 2020-10-17 13:41 | disposition home or self-care (01) ==
PROVIDERS: Physician Assistant; Emergency Provider Emergency Medicine; PCP Internal Medicine
DX: R10.2 Pelvic and perineal pain (principal); Z79.899 Other long term (current) drug therapy
CPT/HCPCS: 36415; 80048; 81001; 82272; 85025; 96374; 99283; 99284; J2270

== ENCOUNTER 2020-10-22 12:20 | Outpatient (REF) | payer MEDICAID, SELFPAY ==
[2020-10-23 11:07] LABS: BV Int Neg Control Negative (Negative); BV Int Pos Control Positive (Positive)
[2020-10-23 11:16] LABS: CT PCR NOT DETECTED (Not Detect.); NG PCR NOT DETECTED (Not Detect.)
[2020-10-24 18:57] LABS: HPV mRNA E6/E7 rflx Not Detected (Not Detected)
== END 2020-10-22 12:21 | disposition home or self-care (01) ==
LOC: HO.LAB 12:20
PROVIDERS: PCP Internal Medicine; Visit Provider Obstetrics & Gynecology
DX: Z12.4 Encounter for screening for malignant neoplasm of cervix (principal); Z11.3 Encounter for screening for infections with a predominantly sexual mode of transmission; Z11.51 Encounter for screening for human papillomavirus (HPV); R10.2 Pelvic and perineal pain; R31.29 Other microscopic hematuria; N95.0 Postmenopausal bleeding
CPT/HCPCS: 87086; 87480; 87491; 87510; 87591; 87624; 87660; 88142; 99202

== ENCOUNTER → 2020-11-05 12:37 | Outpatient (BNVA) | payer MEDICAID, SELFPAY | PROVIDERS: Visit Provider Obstetrics & Gynecology | DX: R31.29 Other microscopic hematuria (principal); N95.0 Postmenopausal bleeding | CPT/HCPCS: 99212 ==

== ENCOUNTER 2020-11-08 08:44 | Day surgery (SDC) | payer MEDICAID, SELFPAY ==
[2020-11-01 13:36] VITALS: BMI 24.3
--- NOTE | 2020-11-06 12:26 | HO.ANESPROP2 ---
Documented by User: Mary Alice Conteh 11/06/20 12:27 HPI - Anesthesia Eval Consult details Narrative: 55yo F for D&C Hysteroscopy, Poss Polypectomy, Poss Myomectomy PMFSH Active Problems Active Problems: All Active Problems (Updated 11/01/20 @ 13:21 by Cnostance Forbes) Cervical radiculopathy (Acute) Carpal tunnel syndrome, bilateral (Acute) Pelvic pain (Acute) Microscopic hematuria (Acute) Postmenopausal bleeding (Acute) Past Medical History Medical History Anxiety Depression Fibromyalgia Hyperlipidemia Left renal mass Surgical History Surgical History H/O tubal ligation Hx of colonoscopy Social History Social History Smoking Status: Current every day smoker Packs Per Day: 0.5 Cigarettes Per Day: 10.0 Years Smoked: 25 Smoked in Last 30 Days: Yes Patient Interested in Nicotine Replacement: No Patient Given Instructions on How to Stop Smoking: Yes Date Education Initiated: 11/01/20 Use of substances other than those prescribed or required for medical reasons: Yes Substance Use Frequency: Daily Have you been hit, kicked, punched, or otherwise hurt by someone within the past year? If so, by whom?: No Are you DNR?: No Advance Directives: No Advance Directives Information Provided: No Advance Directives on File: No Recently lost weight without trying: No Eating poorly because of decreased appetite: No Nutrition Risks: No Nutritional Risk Meds Allergies Allergy/AdvReac Type Severity Reaction Status Date / Time penicillamine [PENICILLAMINE] Allergy Intermediate HIVES Verified 11/05/20 13:11 tomato [TOMATO] Allergy Unknown UNKNOWN Verified 11/05/20 13:11 Home Medications Medication Instructions Recorded Confirmed Last Taken Type cyclobenzaprine 5 mg tablet 5 mg PO TID PRN 06/05/20 11/01/20 Unknown History gabapentin 100 mg capsule 100 mg PO TID 06/05/20 11/01/20 Unknown History ibuprofen 600 mg tablet 600 mg PO TID 06/05/20 11/01/20 Unknown History lidocaine 5 % topical patch 1 patch TOPICAL DAILY 06/05/20 11/01/20 Unknown History magnesium oxide 500 mg capsule 500 mg PO DAILY 06/05/20 11/01/20 Unknown History sertraline 100 mg tablet 100 mg PO DAILY 06/05/20 11/01/20 Unknown History albuterol sulfate [ProAir HFA] 2 puff INHALATION QID 11/01/20 11/01/20 Unknown History atorvastatin 1 tab PO DAILY 11/01/20 11/01/20 Unknown History cyanocobalamin (vitamin B-12) 1 tab SUBLINGUAL DAILY 11/01/20 11/01/20 Unknown History fluticasone propionate [Flovent 2 puff INHALATION BID 11/01/20 11/01/20 Unknown History HFA] Exam Exam Date and Time: November 06, 2020 1226 Height,Weight and Vital Signs: Height 5 ft 6 in Weight 68.492 kg Pertinent Lab Results Pertinent Lab Results: Laboratory Tests 10/17/20 10/17/20 12:03 12:03 WBC 10.3 Hgb 12.5 Hct 38.5 Plt Count 259 Sodium 141 Potassium 4.9 Chloride 105 Carbon Dioxide 27 BUN 11 Creatinine 1.24 Assessment and Plan Assessment Anesthesia Assessment: Chart Reviewed Documented by User: Tammie Lozano 11/08/20 11:08 PMFSH Past Medical History Medical History Anxiety Depression Fibromyalgia Hyperlipidemia Left renal mass Surgical History Surgical History H/O tubal ligation Hx of colonoscopy Social History Social History Smoking Status: Current every day smoker Packs Per Day: 0.5 Cigarettes Per Day: 10.0 Years Smoked: 25 Smoked in Last 30 Days: Yes Patient Interested in Nicotine Replacement: No Patient Given Instructions on How to Stop Smoking: Yes Date Education Initiated: 11/01/20 Use of substances other than those prescribed or required for medical reasons: Yes Substance Use Frequency: Daily Have you been hit, kicked, punched, or otherwise hurt by someone within the past year? If so, by whom?: No Are you DNR?: No Advance Directives: No Advance Directives Information Provided: No Advance Directives on File: No Recently lost weight without trying: No Eating poorly because of decreased appetite: No Nutrition Risks: No Nutritional Risk Meds Allergies Allergy/AdvReac Type Severity Reaction Status Date / Time penicillamine [PENICILLAMINE] Allergy Intermediate HIVES Verified 11/05/20 13:11 tomato [TOMATO] Allergy Unknown UNKNOWN Verified 11/05/20 13:11 Home Medications Medication Instructions Recorded Confirmed Last Taken Type cyclobenzaprine 5 mg tablet 5 mg PO TID PRN 06/05/20 11/01/20 Unknown History gabapentin 100 mg capsule 100 mg PO TID 06/05/20 11/01/20 Unknown History ibuprofen 600 mg tablet 600 mg PO TID 06/05/20 11/01/20 Unknown History lidocaine 5 % topical patch 1 patch TOPICAL DAILY 06/05/20 11/01/20 Unknown History magnesium oxide 500 mg capsule 500 mg PO DAILY 06/05/20 11/01/20 Unknown History sertraline 100 mg tablet 100 mg PO DAILY 06/05/20 11/01/20 Unknown History albuterol sulfate [ProAir HFA] 2 puff INHALATION QID 11/01/20 11/01/20 Unknown History atorvastatin 1 tab PO DAILY 11/01/20 11/01/20 Unknown History cyanocobalamin (vitamin B-12) 1 tab SUBLINGUAL DAILY 11/01/20 11/01/20 Unknown History fluticasone propionate [Flovent 2 puff INHALATION BID 11/01/20 11/01/20 Unknown History HFA] Exam Airway Mallampati Class: II TM Dist: >3cm Neck ROM: Full Heart: RRR Lungs: CYA
[2020-11-08 09:35] VITALS: BP 111/69; PULSE 57; RESP 16; TEMP 36.4; O2SAT 100
[2020-11-08] MEDS: Lactated Ringers 1,000 ML 100 ML IVCONT (10:00)
--- NOTE | 2020-11-08 10:30 | MHC.SHP ---
Pre-Procedural Eval Section A The patient is an INPATIENT: No Changes since office visit: No Cold of Flu in the past 2 weeks, No New Medical Problems, No Changes in Medication and No Patient answered all questions The History & Physical has been completed within 30 days and I have reviewed it.: Yes Section B Chief Complaint: postmenopausal bleeding Allergies: Allergies Allergy/AdvReac Type Severity Reaction Status Date / Time penicillamine [PENICILLAMINE] Allergy Intermediate HIVES Verified 11/05/20 13:11 tomato [TOMATO] Allergy Unknown UNKNOWN Verified 11/05/20 13:11 Plan Diagnosis/Plan: Unchanged I have reviewed the history and physical and performed a pertinent physical examination on my patient. No changes have occurred unless specified.
--- NOTE | 2020-11-08 11:09 | P.BOP_ITS ---
Brief Operative Note Date of Service: 11/08/20 Pre-op diagnosis: Postmenopausal bleeding Post-op diagnosis: other (with ? endometrial polyp) Procedure: Hysteroscopy D&C, Polypectomy Surgeon: Jt Tang MD Anesthesia: MAC Was an Set Up Mechanic Crown Assembly Machine used for this Procedure?: No Estimated blood loss (mL): 0 Pathology: other (Endometrial Scrapping. Polyp) Condition: stable Disposition: PACU
--- NOTE | 2020-11-08 11:09 | P.OP_ITS ---
Operative Note Operative Note Date of Service: 11/08/20 Narrative: Preop Diagnosis: Postmemausal bleeding Operation: Diagnostic Hysteroscopy, Dilataion & Curettage and polypectomy Post Op Diagnosis: ? Endometrial Polyp QBL: Minimal Anesthesia: MAC Surgeon: Jt Tang MD Wood Boatbuilder Apprentice: None Complication: None Pathology: Endometrial Scrapings, Endometrial polyp Complication: None Pathology: Endometrial Scrapings, Endometrial polyp Procedure: The patient was put in the dorsal lithotomy position, scrubbed, and draped in the usual manner. A sterile speculum was inserted in the patient's vagina. The anterior lip of the cervix was grasped with a single tooth tenaculum. The cervix was dilated up to 5 mm, then the scope was inserted in the patient's uterus. Inspection revealed ? endometrial polyp. The Myosure Reach device was used; it was introduced through the operative channel and polypectomy done with no complications. At the end of the procedure, all instruments were taken out of the patient uterine and vaginal cavity. The single tooth tenaculum was removed and homeostasis was assured using pressure,. The patient tolerated the procedure well and was transferred to the PACU in a stable condition.
[2020-11-08 11:22] VITALS: BP 136/76; PULSE 55; RESP 17; TEMP 36.3; O2SAT 100
[2020-11-08 11:29] VITALS: BP 131/78; PULSE 59; RESP 17; O2SAT 100
[2020-11-08 11:44] VITALS: BP 127/62; PULSE 58; RESP 17; O2SAT 100
[2020-11-08 11:56] VITALS: BP 137/70; PULSE 56; RESP 17; TEMP 36.2; O2SAT 99
--- NOTE | 2020-11-08 14:07 | HO.POSTANES ---
Post Anesthesia Evaluation Post Anesthesia Evaluation Vital Signs: Vital Signs Temp Pulse Resp BP Pulse Ox 11/08/20 11:56 97.1 F 56 17 137/70 99 11/08/20 11:44 58 17 127/62 100 11/08/20 11:29 59 17 131/78 100 11/08/20 11:22 97.3 F 55 17 136/76 100 11/08/20 09:35 97.5 F 57 16 111/69 100 Anesthesia: General Mental Status: Awake Pain Control: Satisfactory Nausea/Vomiting: None Hydration: Adequate Anesthesia-Related Issues: No Anes. Related Issues
== END 2020-11-08 12:34 | disposition home or self-care (01) ==
LOC: HO.SSS 08:45
PROVIDERS: PCP Internal Medicine; Visit Provider Obstetrics & Gynecology
PROC: 0UDB8ZZ Extraction of Endometrium, Via Natural or Artificial Opening Endoscopic (ICD-10-PCS; CPT 58558; principal; 2020-11-08 10:30)
DX: N95.0 Postmenopausal bleeding (principal); N84.0 Polyp of corpus uteri; R31.29 Other microscopic hematuria; Z98.51 Tubal ligation status; F32.9 Major depressive disorder, single episode, unspecified; E78.5 Hyperlipidemia, unspecified; F17.210 Nicotine dependence, cigarettes, uncomplicated; Z79.899 Other long term (current) drug therapy; Z88.0 Allergy status to penicillin
CPT/HCPCS: 58558; 88305; J1100; J2250; J2405; J3010

== ENCOUNTER → 2020-11-25 11:52 | Outpatient (BNVA) | payer MEDICAID, SELFPAY | PROVIDERS: PCP Internal Medicine; Visit Provider Obstetrics & Gynecology ==

== ENCOUNTER 2020-12-10 09:59 | Outpatient (REF) | payer MEDICAID, SELFPAY ==
[2020-12-11 13:12] LABS: Urine Cytology See Pathology rpt
== END 2020-12-10 10:00 | disposition home or self-care (01) ==
LOC: HO.LNP 09:59
PROVIDERS: Urology; PCP Internal Medicine
DX: R31.29 Other microscopic hematuria (principal)
CPT/HCPCS: 88112; 99202

== ENCOUNTER → 2020-12-26 12:47 | Outpatient (BNVA) | payer MEDICAID, SELFPAY | PROVIDERS: PCP Internal Medicine; Visit Provider Urology | DX: R31.29 Other microscopic hematuria (principal); E78.5 Hyperlipidemia, unspecified; F41.8 Other specified anxiety disorders; F17.210 Nicotine dependence, cigarettes, uncomplicated; Z98.51 Tubal ligation status; Z88.8 Allergy status to other drugs, medicaments and biological substances; Z91.018 Allergy to other foods | CPT/HCPCS: 52000; 99212 ==

== ENCOUNTER 2021-02-27 14:37 | Outpatient (REF) | payer MEDICAID, SELFPAY ==
[2021-02-27 15:29] LABS: Hemoglobin 12.7 g/dl (12.0-16.0); MANUAL DIFF FLAG SCAN; Mean Corpuscular Hemoglobin 29.9 pg (27.0-33.0); PLT CLUMP 1; Red Blood Count 4.25 X10*6/uL (4.20-5.50); Red Cell Distribution Width 12.9 % (11.0-16.0); SCAN SMEAR FLAG 1
[2021-02-27 15:31] LABS: Basophils Percent Auto 0.9 % (0-2); Eosinophils Absolute Auto 0.1 X10*3/uL (0.0-0.4); Eosinophils Percent Auto 2.5 % (0-4); Hematocrit 38.9 % (37-47); Lymphocytes Absolute Auto 2.1 X10*3/uL (1.2-4.9); Lymphocytes Percent Auto 47.8 % (20-40); Mean Corpuscular HGB Conc 32.6 g/dl (31.0-35.0); Mean Corpuscular Volume 91.5 fL (80-98); Mean Platelet Volume 9.2 fL (9.4-12.3); Monocytes Absolute Auto 0.4 X10*3/uL (0.1-1.2); Monocytes Percent Auto 9.2 % (2-11); Neutrophils Absolute Auto 1.8 X10*3/uL (2.0-8.3); Neutrophils Percent Auto 39.6 % (45-73); Platelet Count 287 X10*3/uL (160-400); White Blood Count 4.5 X10*3/uL (4.8-10.8)
[2021-02-27 15:36] LABS: SLIDE REVIEW VERIFIED
[2021-02-27 16:08] LABS: Alanine Aminotransferase 8 U/L (0-31); Albumin Level 4.7 g/dL (3.5-5.0); Alkaline Phosphatase 78 U/L (39-117); Anion Gap 13 (12-20); Aspartate Amino Transferase 17 U/L (5-31); Bilirubin Total 0.6 mg/dL (0.0-1.0); Blood Urea Nitrogen 10 mg/dL (9-16); Calcium 10.5 mg/dL (8.4-10.2); Carbon Dioxide 26 mmol/L (22-29); Chloride 107 mmol/L (96-108); Cholesterol 253 mg/dL; Estimated Glomerular Filt Rate > 60; Glucose Random 83 mg/dL (60-115); HDL Cholesterol 60 mg/dL; LDL Cholesterol Calculated 179 mg/dl; Potassium 4.6 mmol/L (3.3-5.1); Sodium 141 mmol/L (135-145); Triglycerides 74 mg/dL
[2021-02-27 16:12] LABS: Thyroid Stimulating Hormone 1.26 uIU/mL (0.32-4.0)
== END 2021-02-27 14:38 | disposition home or self-care (01) ==
LOC: HO.LAB 14:37
PROVIDERS: PCP Internal Medicine; Visit Provider Internal Medicine
DX: E78.00 Pure hypercholesterolemia, unspecified (principal); F33.42 Major depressive disorder, recurrent, in full remission; G56.03 Carpal tunnel syndrome, bilateral upper limbs; J45.909 Unspecified asthma, uncomplicated; Z72.0 Tobacco use
CPT/HCPCS: 36415; 80053; 80061; 84443; 85025

== ENCOUNTER 2021-05-29 11:07 | Outpatient (REF) | payer MEDICAID, SELFPAY ==
[2021-05-29 17:14] LABS: CT PCR NOT DETECTED (Not Detect.); NG PCR NOT DETECTED (Not Detect.)
[2021-05-30 11:37] LABS: BV Int Neg Control Negative (Negative); BV Int Pos Control Positive (Positive)
== END 2021-05-29 11:08 | disposition home or self-care (01) ==
LOC: HO.LAB 11:07
PROVIDERS: PCP Internal Medicine; Visit Provider Obstetrics & Gynecology
DX: N39.0 Urinary tract infection, site not specified (principal); R31.29 Other microscopic hematuria; B37.3 Candidiasis of vulva and vagina
CPT/HCPCS: 87086; 87480; 87491; 87510; 87591; 87660; 99212

== ENCOUNTER 2021-07-30 15:28 | Outpatient (REF) | payer MEDICAID, SELFPAY ==
[2021-07-30 16:32] LABS: MANUAL DIFF FLAG NO
[2021-07-30 17:08] LABS: Basophils Absolute Auto 0.1 X10*3/uL (0.0-0.2); Basophils Percent Auto 0.9 % (0-2); Eosinophils Absolute Auto 0.2 X10*3/uL (0.0-0.4); Eosinophils Percent Auto 3.6 % (0-4); Hematocrit 37.1 % (37.0-47.0); Hemoglobin 11.9 g/dl (12.0-16.0); Imm Gran Abs Auto 0.01 X10*3/uL (0.00-0.03); Imm Gran Pct Auto 0.2 % (0.0-0.4); Lymphocytes Absolute Auto 2.8 X10*3/uL (1.2-4.9); Lymphocytes Percent Auto 50.2 % (20-40); Mean Corpuscular HGB Conc 32.1 g/dl (31.0-35.0); Mean Corpuscular Hemoglobin 29.4 pg (27.0-33.0); Mean Corpuscular Volume 91.6 fL (80.0-98.0); Mean Platelet Volume 9.4 fL (9.4-12.3); Monocytes Absolute Auto 0.5 X10*3/uL (0.1-1.2); Monocytes Percent Auto 9.2 % (2-11); Neutrophils Percent Auto 35.9 % (45-73); Platelet Count 261 X10*3/uL (160-400); Red Blood Count 4.05 X10*6/uL (4.20-5.50); Red Cell Distribution Width 13.6 % (11.0-16.0); White Blood Count 5.5 X10*3/uL (4.8-10.8)
[2021-07-30 17:43] LABS: Alanine Aminotransferase < 6 U/L (0-31); Albumin Level 4.3 g/dL (3.5-5.0); Alkaline Phosphatase 67 U/L (39-117); Anion Gap 10 (12-20); Aspartate Amino Transferase 11 U/L (5-31); Bilirubin Total 0.6 mg/dL (0.0-1.0); Blood Urea Nitrogen 9 mg/dL (9-16); Calcium 9.8 mg/dL (8.4-10.2); Carbon Dioxide 30 mmol/L (22-29); Chloride 106 mmol/L (96-108); Cholesterol 235 mg/dL; Estimated Glomerular Filt Rate > 60; Glucose Random 74 mg/dL (60-115); HDL Cholesterol 50 mg/dL; LDL Cholesterol Calculated 167 mg/dl; Potassium 4.3 mmol/L (3.3-5.1); Sodium 142 mmol/L (135-145); Total Protein 7.1 g/dL (6.5-8.0); Triglycerides 94 mg/dL
== END 2021-07-30 15:29 | disposition home or self-care (01) ==
LOC: HO.LAB 15:28
PROVIDERS: PCP Internal Medicine; Visit Provider Internal Medicine
DX: Z00.00 Encounter for general adult medical examination without abnormal findings (principal); R31.29 Other microscopic hematuria; N89.8 Other specified noninflammatory disorders of vagina; E78.00 Pure hypercholesterolemia, unspecified
CPT/HCPCS: 36415; 80053; 80061; 85025

== ENCOUNTER → 2021-09-11 09:45 | Outpatient (BNVA) | payer MEDICAID, SELFPAY | PROVIDERS: PCP Internal Medicine | DX: R10.2 Pelvic and perineal pain (principal); R31.29 Other microscopic hematuria | CPT/HCPCS: 99212 ==

== ENCOUNTER 2021-10-28 11:47 | Outpatient (REF) | payer MEDICAID, SELFPAY ==
[2021-10-28 13:17] LABS: HIV AB/AG Nonreactive (Nonreactive); HIV Num 1 0.07 S/CO (0.00-0.99)
== END 2021-10-28 11:48 | disposition home or self-care (01) ==
LOC: HO.LAB 11:47
PROVIDERS: PCP Internal Medicine; Visit Provider Internal Medicine
DX: Z11.4 Encounter for screening for human immunodeficiency virus [HIV] (principal)
CPT/HCPCS: 36415; 87389

== ENCOUNTER 2021-11-26 08:35 | Outpatient (REF) | payer MEDICAID, SELFPAY ==
[2021-11-26 15:10] LABS: CT PCR NOT DETECTED (Not Detect.); NG PCR NOT DETECTED (Not Detect.)
[2021-11-27 12:29] LABS: BV Int Neg Control Negative (Negative); BV Int Pos Control Positive (Positive)
== END 2021-11-26 08:36 | disposition home or self-care (01) ==
LOC: HO.LAB 08:35
PROVIDERS: Visit Provider Advanced Practice Midwife
DX: N89.8 Other specified noninflammatory disorders of vagina (principal); R10.2 Pelvic and perineal pain; R30.0 Dysuria; Z20.2 Contact with and (suspected) exposure to infections with a predominantly sexual mode of transmission
CPT/HCPCS: 81003; 87480; 87491; 87510; 87591; 87660; 99212

== ENCOUNTER 2021-12-29 13:03 | Outpatient (REF) | payer MEDICAID, SELFPAY ==
--- NOTE | ~2021-12-29 | US_ITS ---
EXAMINATION: US RETROPERITONEAL LIMITED (RENAL ONLY) CLINICAL INFORMATION: Other microscopic hematuria. COMPARISON: CT abdomen without contrast 09/20/2021. TECHNIQUE: Real-time imaging of the kidneys. FINDINGS: RIGHT KIDNEY: 11.0 x 3.2 x 4.7 cm (SAG x AP x TRV). The kidney is normal in size, contour, and echogenicity. Renal cortical thickness is normal. No focal parenchymal lesions or hydronephrosis. There is echogenic stone in midpole measuring 0.3 x 0.4 x 0.3 cm. LEFT KIDNEY: 10.4 x 5.6 x 5.5 cm (SAG x AP x TRV). The kidney is normal in size, contour, and echogenicity. Renal cortical thickness is normal. No renal calculi or hydronephrosis. 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 US/US renal BI IMPRESSION: Nonobstructive echogenic stone midpole measuring 0.3 x 0.4 x 0.3 cm. 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 There is no caliectasis or hydronephrosis.
== END 2021-12-29 13:04 | disposition home or self-care (01) ==
LOC: HO.HMGCX 13:03
DX: R31.29 Other microscopic hematuria (principal)
CPT/HCPCS: 76775

== ENCOUNTER 2022-01-26 09:33 | Outpatient (REF) | payer MEDICAID, SELFPAY ==
[2022-01-26 09:53] LABS: MANUAL DIFF FLAG NO
[2022-01-26 10:14] LABS: Basophils Percent Auto 0.7 % (0-2); Eosinophils Absolute Auto 0.1 X10*3/uL (0.0-0.4); Eosinophils Percent Auto 2.4 % (0-4); Hematocrit 38.2 % (37.0-47.0); Hemoglobin 12.3 g/dl (12.0-16.0); Imm Gran Abs Auto 0.01 X10*3/uL (0.00-0.03); Imm Gran Pct Auto 0.2 % (0.0-0.4); Lymphocytes Absolute Auto 1.8 X10*3/uL (1.2-4.9); Lymphocytes Percent Auto 41.8 % (20-40); Mean Corpuscular HGB Conc 32.2 g/dl (31.0-35.0); Mean Corpuscular Hemoglobin 29.9 pg (27.0-33.0); Mean Corpuscular Volume 92.7 fL (80.0-98.0); Mean Platelet Volume 9.3 fL (9.4-12.3); Monocytes Absolute Auto 0.4 X10*3/uL (0.1-1.2); Monocytes Percent Auto 8.3 % (2-11); Neutrophils Percent Auto 46.6 % (45-73); Platelet Count 252 X10*3/uL (160-400); Red Blood Count 4.12 X10*6/uL (4.20-5.50); Red Cell Distribution Width 13.6 % (11.0-16.0); White Blood Count 4.2 X10*3/uL (4.8-10.8)
[2022-01-26 11:02] LABS: Alanine Aminotransferase 8 U/L (0-31); Albumin Level 4.6 g/dL (3.5-5.0); Alkaline Phosphatase 74 U/L (39-117); Anion Gap 14 (12-20); Aspartate Amino Transferase 13 U/L (5-31); Bilirubin Total 0.5 mg/dL (0.0-1.0); Blood Urea Nitrogen 6 mg/dL (9-16); Calcium 9.4 mg/dL (8.4-10.2); Carbon Dioxide 28 mmol/L (22-29); Chloride 106 mmol/L (96-108); Estimated Glomerular Filt Rate > 60; Glucose Random 93 mg/dL (60-115); Potassium 4.5 mmol/L (3.3-5.1); Sodium 143 mmol/L (135-145); Total Protein 7.4 g/dL (6.5-8.0)
[2022-01-26 11:06] LABS: Free T4 (Free Thyroxine) 0.96 ng/dL (0.71-1.85); Thyroid Stimulating Hormone 1.14 uIU/mL (0.32-4.0)
[2022-01-28 08:53] LABS: Carbohydrate Antigen 19-9 29 U/mL (<34)
[2022-01-29 23:11] LABS: Prot Elec - Albumin 4.4 g/dL (3.8-4.8); Prot Elec - Alpha1 0.3 g/dL (0.2-0.3); Prot Elec - Alpha2 0.7 g/dL (0.5-0.9); Prot Elec - Beta 1 0.4 g/dL (0.4-0.6); Prot Elec - Beta 2 0.3 g/dL (0.2-0.5); Prot Elec - Gamma 1.1 g/dL (0.8-1.7); Prot Elec - Total Protein 7.1 g/dL (6.1-8.1)
[2022-01-31 10:12] LABS: IgA 182 mg/dL (47-310); IgG 1288 mg/dL (600-1640); IgM 94 mg/dL (50-300)
== END 2022-01-26 09:34 | disposition home or self-care (01) ==
LOC: HO.LAB 09:33
PROVIDERS: PCP Internal Medicine; Visit Provider Internal Medicine Medical Oncology
DX: R63.4 Abnormal weight loss (principal); D72.820 Lymphocytosis (symptomatic); Z80.0 Family history of malignant neoplasm of digestive organs
CPT/HCPCS: 36415; 80053; 82784; 84134; 84165; 84439; 84443; 85025; 86301; 86334

== ENCOUNTER 2022-02-03 09:23 | Outpatient (REF) | payer MEDICAID, SELFPAY ==
[2022-02-04 13:04] LABS: BV Int Neg Control Negative (Negative); BV Int Pos Control Positive (Positive)
== END 2022-02-03 09:24 | disposition home or self-care (01) ==
LOC: HO.LAB 09:23
PROVIDERS: Visit Provider Advanced Practice Midwife
DX: N89.8 Other specified noninflammatory disorders of vagina (principal)
CPT/HCPCS: 87480; 87510; 87660

== ENCOUNTER 2022-03-27 14:40 | Outpatient (REF) | payer MEDICAID, SELFPAY ==
[2022-03-27 14:51] LABS: MANUAL DIFF FLAG NO
[2022-03-27 16:14] LABS: Basophils Absolute Auto 0.1 X10*3/uL (0.0-0.2); Basophils Percent Auto 0.9 % (0-2); Eosinophils Absolute Auto 0.1 X10*3/uL (0.0-0.4); Eosinophils Percent Auto 1.9 % (0-4); Hemoglobin 12.6 g/dl (12.0-16.0); Imm Gran Abs Auto 0.01 X10*3/uL (0.00-0.03); Imm Gran Pct Auto 0.2 % (0.0-0.4); Lymphocytes Absolute Auto 2.8 X10*3/uL (1.2-4.9); Lymphocytes Percent Auto 47.4 % (20-40); Mean Corpuscular HGB Conc 34.1 g/dl (31.0-35.0); Mean Corpuscular Hemoglobin 29.9 pg (27.0-33.0); Mean Corpuscular Volume 87.9 fL (80.0-98.0); Mean Platelet Volume 9.6 fL (9.4-12.3); Monocytes Absolute Auto 0.5 X10*3/uL (0.1-1.2); Monocytes Percent Auto 7.7 % (2-11); Neutrophils Absolute Auto 2.5 x10*3/uL (2.0-8.3); Neutrophils Percent Auto 41.9 % (45-73); Platelet Count 266 X10*3/uL (160-400); Red Blood Count 4.21 X10*6/uL (4.20-5.50); White Blood Count 5.9 X10*3/uL (4.8-10.8)
[2022-03-27 16:15] LABS: Alanine Aminotransferase 8 U/L (0-31); Albumin Level 4.6 g/dL (3.5-5.0); Alkaline Phosphatase 81 U/L (39-117); Anion Gap 16 (12-20); Aspartate Amino Transferase 14 U/L (5-31); Bilirubin Total 0.4 mg/dL (0.0-1.0); Blood Urea Nitrogen 9 mg/dL (9-16); Calcium 9.8 mg/dL (8.4-10.2); Carbon Dioxide 24 mmol/L (22-29); Chloride 107 mmol/L (96-108); Estimated Glomerular Filt Rate > 60; Glucose Random 90 mg/dL (60-115); Sodium 143 mmol/L (135-145); Total Protein 7.4 g/dL (6.5-8.0)
== END 2022-03-27 14:41 | disposition home or self-care (01) ==
LOC: HO.LAB 14:40
PROVIDERS: PCP Internal Medicine Medical Oncology; Visit Provider Internal Medicine Medical Oncology
DX: E53.8 Deficiency of other specified B group vitamins (principal); D72.820 Lymphocytosis (symptomatic)
CPT/HCPCS: 36415; 80053; 85025

== ENCOUNTER 2022-07-27 14:10 | Outpatient (REF) | payer MEDICAID, SELFPAY ==
[2022-07-27 14:22] LABS: MANUAL DIFF FLAG NO
[2022-07-27 14:39] LABS: Basophils Percent Auto 0.8 % (0-2); Eosinophils Absolute Auto 0.1 X10*3/uL (0.0-0.4); Eosinophils Percent Auto 2.5 % (0-4); Hematocrit 36.6 % (37.0-47.0); Hemoglobin 11.9 g/dl (12.0-16.0); Imm Gran Abs Auto 0.01 X10*3/uL (0.00-0.03); Imm Gran Pct Auto 0.2 % (0.0-0.4); Lymphocytes Absolute Auto 2.1 X10*3/uL (1.2-4.9); Lymphocytes Percent Auto 41.4 % (20-40); Mean Corpuscular HGB Conc 32.5 g/dl (31.0-35.0); Mean Corpuscular Volume 92.2 fL (80.0-98.0); Mean Platelet Volume 9.2 fL (9.4-12.3); Monocytes Absolute Auto 0.4 X10*3/uL (0.1-1.2); Monocytes Percent Auto 8.4 % (2-11); Neutrophils Absolute Auto 2.4 x10*3/uL (2.0-8.3); Neutrophils Percent Auto 46.7 % (45-73); Platelet Count 278 X10*3/uL (160-400); Red Blood Count 3.97 X10*6/uL (4.20-5.50); Red Cell Distribution Width 13.2 % (11.0-16.0); White Blood Count 5.1 X10*3/uL (4.8-10.8)
[2022-07-27 15:15] LABS: Alanine Aminotransferase 8 U/L (0-31); Albumin Level 4.2 g/dL (3.5-5.0); Alkaline Phosphatase 79 U/L (39-117); Anion Gap 12 (12-20); Aspartate Amino Transferase 13 U/L (5-31); Bilirubin Total 0.3 mg/dL (0.0-1.0); Blood Urea Nitrogen 8 mg/dL (9-16); Calcium 9.3 mg/dL (8.4-10.2); Carbon Dioxide 26 mmol/L (22-29); Chloride 109 mmol/L (96-108); Cholesterol 214 mg/dL; Estimated Glomerular Filt Rate > 60; Glucose Random 81 mg/dL (60-115); HDL Cholesterol 50 mg/dL; LDL Cholesterol Calculated 136 mg/dl; Sodium 143 mmol/L (135-145); Total Protein 6.8 g/dL (6.5-8.0); Triglycerides 144 mg/dL
[2022-07-27 15:22] LABS: Thyroid Stimulating Hormone 1.04 uIU/mL (0.32-4.0)
== END 2022-07-27 14:11 | disposition home or self-care (01) ==
LOC: HO.LAB 14:10
PROVIDERS: PCP Internal Medicine; Visit Provider Internal Medicine
DX: D72.820 Lymphocytosis (symptomatic) (principal); N20.0 Calculus of kidney; R11.0 Nausea; Z72.0 Tobacco use
CPT/HCPCS: 36415; 80053; 80061; 84443; 85025

== ENCOUNTER 2022-10-20 09:26 | Outpatient (REF) | payer MEDICAID, SELFPAY ==
[2022-10-20 12:29] LABS: Lipase 23 U/L (8-78)
[2022-10-20 12:51] LABS: Folate 7.1 ng/mL (> or = 4.0); Vitamin B12 794 pg/mL (200-900)
[2022-10-23 11:17] LABS: H Pylori Breath Test Positive (Negative)
[2022-10-25 15:43] LABS: Vitamin D 25-OH, D2 <4 ng/mL; Vitamin D 25-OH, D3 5 ng/mL; Vitamin D 25-OH, Total 5 ng/mL (30-100)
[2022-10-28 06:08] LABS: Transglutaminase IgA <1.0 U/mL
== END 2022-10-20 09:27 | disposition home or self-care (01) ==
LOC: HO.LAB 09:26
PROVIDERS: PCP Internal Medicine; Visit Provider Nurse Practitioner Family
DX: R10.9 Unspecified abdominal pain (principal); R19.7 Diarrhea, unspecified; E55.9 Vitamin D deficiency, unspecified; N89.8 Other specified noninflammatory disorders of vagina
CPT/HCPCS: 36415; 82306; 82607; 82746; 83013; 83690; 86364; 99202

== ENCOUNTER 2022-10-28 09:04 | Outpatient (REF) | payer MEDICAID, SELFPAY | END 2022-10-28 09:05 | disposition home or self-care (01) | LOC: HO.LNP 09:04 | PROVIDERS: PCP Internal Medicine; Visit Provider Advanced Practice Midwife | DX: R10.2 Pelvic and perineal pain (principal); N89.8 Other specified noninflammatory disorders of vagina | CPT/HCPCS: 0353U; 81003; 87480; 87510; 87660; 99212 ==

== ENCOUNTER 2022-10-28 10:16 | Outpatient (REF) | payer MEDICAID, SELFPAY ==
[2022-10-28 15:32] LABS: CT PCR NOT DETECTED (Not Detect.); NG PCR NOT DETECTED (Not Detect.)
[2022-10-29 10:10] LABS: BV Int Neg Control Negative (Negative); BV Int Pos Control Positive (Positive)
== END 2022-10-28 10:17 | disposition home or self-care (01) ==
LOC: HO.LAB 10:16
PROVIDERS: Visit Provider Advanced Practice Midwife
DX: R10.2 Pelvic and perineal pain (principal); N89.8 Other specified noninflammatory disorders of vagina
CPT/HCPCS: 0353U; 87480; 87510; 87660

== ENCOUNTER 2022-11-10 11:11 | Outpatient (REF) | payer MEDICAID, SELFPAY ==
--- NOTE | ~2022-11-10 | US_ITS ---
EXAMINATION: US PELVIS COMPLETE CLINICAL INFORMATION: Pelvic and perineal pain COMPARISON: Pelvic ultrasound 10/15/2020 TECHNIQUE: Transabdominal and transvaginal imaging was performed. FINDINGS: The uterus is of normal size and echogenicity measuring 6.5 x 3.3 x 3.9 cm. A regular homogeneous endometrium is identified measuring 0.2 cm. Trace fluid within the endometrial canal. Nabothian cysts in the cervix and dystrophic calcification. A 0.6 cm submucosal myoma in the anterior body of the uterus not previously seen. Right ovary was not identified sonographically The left measures 2.6 x 1.2 x 2.1 cm for a volume of 3.4 mL and is unremarkable in appearance. No adnexal mass. There is trace simple pelvic free fluid. US/US pelvic and transvaginal IMPRESSION: 1. A 0.6 cm submucosal myoma in the anterior body of the uterus not previously seen. 2. Trace fluid within the endometrial canal. 3. Right ovary was not identified sonographically. Left ovary is unremarkable in appearance. 4. Trace simple pelvic free fluid.
== END 2022-11-10 11:12 | disposition home or self-care (01) ==
LOC: HO.US 11:11
PROVIDERS: PCP Internal Medicine; Visit Provider Advanced Practice Midwife
DX: R10.2 Pelvic and perineal pain (principal)
CPT/HCPCS: 76830; 76856

== ENCOUNTER → 2022-11-27 08:56 | Outpatient (BNVA) | payer MEDICAID, SELFPAY | PROVIDERS: PCP Internal Medicine; Visit Provider Advanced Practice Midwife | DX: Z71.2 Person consulting for explanation of examination or test findings (principal); D25.9 Leiomyoma of uterus, unspecified | CPT/HCPCS: 99212 ==

== ENCOUNTER → 2022-12-08 11:21 | Outpatient (BNVA) | payer MEDICAID, SELFPAY | PROVIDERS: Visit Provider Nurse Practitioner Family ==

== ENCOUNTER 2023-01-20 09:45 | Outpatient (AMB) | payer MEDICAID, SELFPAY ==
[2023-01-20 10:16] VITALS: BP 117/70; PULSE 62; BMI 19.9
--- NOTE | 2023-01-20 10:16 | MHC.OFFVIS ---
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 Will send patient to her OBGYN provider. Patient was encouraged to call the office GERD (gastroesophageal reflux disease) Patient reports dyspepsia and epigastric discomfort postprandially. Will send patient for upper endoscopy, however will check for H pylori in the office today, treat empirically if positive. Patient was encouraged to avoid dietary triggers and late night snacking. Staying upright for minimum 3 hours after meals discussed with patient. I will start patient on omeprazole Painless rectal bleeding Patient reports occasional rectal bleed. Patient states that does not always happen when she has a bowel movement. Patient is unsure if she has hemorrhoids or not. However I will send her script for stool softener and Proctosol to see if that will change. Patient will be sent for colonoscopy as well Postprandial abdominal bloating Postprandial abdominal bloating. Low FODMAP diet discussed with patient. List of food recommended as well as list of food to avoid given to patient. Patient also reports left upper quadrant discomfort, will workup for pancreatitis, pancreatic insufficiency, celiac disease, will check vitamin-D, folate, vitamin B12 levels. Screen for colon cancer Patient is due to go for colonoscopy. Last colonoscopy in 2019 showed tubular adenoma. Patient will return in 7 weeks and will discuss going for colonoscopy as well as upper endoscopy. Patient is agreeable to this plan and verbalizes understanding of instructions. She was given the opportunity to ask questions and all questions answered. ? Thank you for allowing me to participate in her care Plan Orders Orders H Pylori Breath Test Today Vitamin B12 and Folate Today R19.7 Lipase Today R10.9 Vitamin D 25-OH (D2 and D3) Today E55.9 Transglutaminase IgA Today R10.9 Transglutaminase Ab IgG Today R10.9 Referrals ACQUISITION CONSULTANT Referral N89.8 Medications New omeprazole 20 mg PO DAILY 30 caps 3RF K21.9 ondansetron 4 mg PO Q8H PRN 10 tabs 0RF nausea and vomiting R11.0 docusate sodium 100 mg PO DAILY 30 caps 3RF K59.00 hydrocortisone 2.5% (Proctosol HC) 1 appl VA BID-QID PRN 30 grams 2RF hemorrhoids K64.9 TODAY'S VISIT Patient is here today for follow-up. Patient continues to have epigastric discomfort with occasional dyspepsia without dysphagia or odynophagia. Patient states that she is not having much appetite and I in able to eat without having epigastric pain. Patient reports that she has postprandial abdominal bloating, moves her bowels well. Patient reports occasional blood after bowel movement when wiping. Denies melena, hematochezia, unintentional weight loss or ribbon like stools. Diagnosed with H pylori and need to be treated. Patient will need to go for colonoscopy as well as for upper endoscopy. [facility] Medical History Anxiety Depression Fibromyalgia Hyperlipidemia Left renal mass Right-sided Wagner's palsy Smoking Uterine fibroid Surgical History H/O tubal ligation History of cervical polypectomy Hx of colonoscopy Family History Sister Breast cancer Brother Heart attack Mother Pancreatic cancer Social History Household Members: None Housing: Apartment Alcohol intake: never Cigarette Packs Per Day: 0.5 Cigarettes Per Day: 10.0 Years Smoked: 25 Female Reproductive History Menstrual Age of Menarche: 11 Review of Systems Const Denies weight gain and Denies weight loss ENT Reports no additional complaints, Denies dysphagia and Denies odynophagia Card Reports no additional complaints Resp Reports no additional complaints GI Reports abdominal pain (Epigastric), Denies belching, Denies melena, Denies bloating, Reports hematochezia (After bowel movements when wiping), Denies change in bowel habits, Denies dysphagia, Denies excessive flatus, Reports dyspepsia, Denies heartburn, Denies diarrhea, Denies loose stools, Denies nausea, Denies odynophagia and Denies vomiting Reports no additional complaints Musc Reports no additional complaints Neuro Reports no additional complaints Psych Reports no additional complaints Endo Reports no additional complaints Physical Exam Vital Signs: Last Vital Signs Pulse 62 01/20/23 10:16 BP 117/70 01/20/23 10:16 BMI result Body Mass Index 19.9 Const General: healthy appearing, no acute distress and well developed Nutritional Appearance: well nourished Orientation/consciousness: patient oriented x3 HEENT Head: Yes normal to inspection, Yes normocephalic and Yes atraumatic Face and sinus: Yes normal facial exam Mouth: Normal oral and palatal mucosa present Throat: Yes posterior oropharynx normal, Yes tonsils normal and Yes uvula midline Eyes General: appearance normal, both eyes and all related structures Neck Neck: Yes normal visual inspection, Yes full ROM and Yes trachea midline Thyroid: Thyroid normal Resp Effort & Inspection: normal respiratory effort, able to speak in complete sentences, no tracheal deviation and symmetric chest movement Auscultation: clear to auscultation bilaterally Cardio Rate: regular rate Heart sounds: S1 normal heart sound present and S2 normal heart sound present GI Inspection: Yes normal to inspection and No distended Palpation (GI): Soft to palpation, not firm, nontender and No hepatosplenomegaly present Auscultation: normal bowel sounds General: Yes no CVA tenderness Back/Spine/Pelvis Back: no CVA tenderness Skin General skin exam: elasticity normal, turgor normal and dry skin Neuro General: patient oriented x3 Psych Appearance: grossly normal Mental Status: mental status grossly normal Speech and movement: Normal speech and movement present Results Reviewed Results Reviewed: Laboratory Tests 10/20/22 10/20/22 10:49 10:49 Lipase 23 Vitamin B12 794 25-OH Vitamin D Total 5 L Folate 7.1 Assessment & Plan Assessment & Plan (1) GERD (gastroesophageal reflux disease): Code(s): K21.9 - Gastro-esophageal reflux disease without esophagitis Qualifiers: Esophagitis presence: esophagitis presence not specified Qualified Code(s): K21.9 - Gastro-esophageal reflux disease without esophagitis Plan: Continue omeprazole twice a day. Patient diagnosed with H pylori and will be treated with quadruple therapy. Patient will be given nausea medication to help her complete course of antibiotics. (2) Postprandial abdominal bloating: Code(s): R14.0 - Abdominal distension (gaseous) Plan: Patient reports postprandial abdominal bloating. Continue avoiding dietary triggers. Patient does not have much appetite. Will give mirtazapine, patient can take it at bedtime. (3) Helicobacter pylori (H. pylori): Code(s): A04.8 - Other specified bacterial intestinal infections Plan: Quadruple therapy to treat H pylori. Will check for eradication after treatment. Patient also will be sent for upper endoscopy. I will see her in 3 weeks, sooner on as needed basis. Patient is agreeable to this plan and verbalizes understanding of instructions. She was given the opportunity to ask questions and all questions answered. Orders: Orders Hemoglobin A1c 01/20/23 E11.9 - Type 2 diabetes mellitus without complications H pylori Ag Stool 01/20/23 K21.9 - Gastro-esophageal reflux disease without esophagitis Pancreatic Elastase-1 01/20/23 R10.9 - Unspecified abdominal pain Medications: New mirtazapine 7.5 mg PO BEDTIME 30 tabs 1RF K31.84 - Gastroparesis bismuth subsalicylate 2 tabs PO QID PRN 112 tabs 0RF diarrhea 14 days A04.8 - Other specified bacterial intestinal infections metronidazole 1,000 mg (2 x 500 mg) PO BID 56 tabs 0RF A04.8 - Other specified bacterial intestinal infections tetracycline 1,000 mg (2 x 500 mg) PO Q12H 56 caps 0RF A04.8 - Other specified bacterial intestinal infections Changed From omeprazole 20 mg PO DAILY 30 caps 3RF K21.9 - Gastro-esophageal reflux disease without esophagitis To omeprazole 20 mg PO BID 60 caps 3RF K21.9 - Gastro-esophageal reflux disease without esophagitis Refilled ondansetron 4 mg PO Q8H PRN 20 tabs 0RF nausea and vomiting R11.0 - Nausea Coding Level of Care Code Est Pt Level 4 (55198) Diagnoses GERD (gastroesophageal reflux disease) K21.9 Esophagitis presence: esophagitis presence not specified Postprandial abdominal bloating R14.0 Helicobacter pylori (H. pylori) A04.8 Time Spent (min) 35 Comment 20 minutes spent with patient and additional 15 minutes spent reviewing her records
== END 2023-01-20 11:15 | disposition home or self-care (01) ==
PROVIDERS: PCP Internal Medicine; Visit Provider Nurse Practitioner Family
DX: K21.9 Gastro-esophageal reflux disease without esophagitis (principal); R14.0 Abdominal distension (gaseous); A04.8 Other specified bacterial intestinal infections
CPT/HCPCS: 99214

== ENCOUNTER → 2023-01-20 09:45 | Outpatient (BNVA) | payer MEDICAID, SELFPAY | PROVIDERS: PCP Internal Medicine; Visit Provider Nurse Practitioner Family | DX: K21.9 Gastro-esophageal reflux disease without esophagitis (principal); R10.9 Unspecified abdominal pain; K64.9 Unspecified hemorrhoids; E11.9 Type 2 diabetes mellitus without complications | CPT/HCPCS: 99214 ==

== ENCOUNTER 2023-02-24 12:38 | Outpatient (AMB) | payer MEDICAID, SELFPAY ==
[2023-02-24 12:54] VITALS: BP 119/65; PULSE 69; BMI 20.1
--- NOTE | 2023-02-24 12:54 | MHC.OFFVIS ---
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 Patient diagnosed with H pylori and will be treated with quadruple therapy. Patient will be given nausea medication to help her complete course of antibiotics. Postprandial abdominal bloating Patient reports postprandial abdominal bloating. Continue avoiding dietary triggers. Patient does not have much appetite. Will give mirtazapine, patient can take it at bedtime. Helicobacter pylori (H. pylori) Quadruple therapy to treat H pylori. Will check for eradication after treatment. Patient also will be sent for upper endoscopy. I will see her in 3 weeks, sooner on as needed basis. Patient is agreeable to this plan and verbalizes understanding of instructions. She was given the opportunity to ask questions and all questions answered. Plan Orders Orders Hemoglobin A1c 01/20/23 E11.9 H pylori Ag Stool 01/20/23 K21.9 Pancreatic Elastase-1 01/20/23 R10.9 Medications New mirtazapine 7.5 mg PO BEDTIME 30 tabs 1RF K31.84 bismuth subsalicylate 2 tabs PO QID PRN 112 tabs 0RF diarrhea 14 days A04.8 metronidazole 1,000 mg (2 x 500 mg) PO BID 56 tabs 0RF A04.8 tetracycline 1,000 mg (2 x 500 mg) PO Q12H 56 caps 0RF A04.8 Changed From omeprazole 20 mg PO DAILY 30 caps 3RF K21.9 To omeprazole 20 mg PO BID 60 caps 3RF K21.9 Refilled ondansetron 4 mg PO Q8H PRN 20 tabs 0RF nausea and vomiting R11.0 TODAY'S VISIT Patient is here today for follow-up and discuss going for colonoscopy. Patient has a colonoscopy scheduled already. Diagnosed and treated for H pylori. Patient completed all of her antibiotics. Reports that she has been feeling much better. Continues to take omeprazole as ordered. Denies dyspepsia, dysphagia or odynophagia. Patient continues to have occasional blood in the stool after bowel movement. Patient states that her stool is soft. Patient denies any rectal pain or discomfort. Patient denies melena, reports that her appetite is better and she is able to tolerate food. Occasional postprandial abdominal bloating. Denies feeling constipated. Denies any issues with anesthesia in the past. No history of sleep apnea. Not on any anticoagulation medication. Patient denies any cardiac or respiratory symptoms. [facility] Medical History Anxiety Depression Fibromyalgia Hyperlipidemia Left renal mass Right-sided Wagner's palsy Smoking Uterine fibroid Surgical History H/O tubal ligation History of cervical polypectomy Hx of colonoscopy Family History Sister Breast cancer Brother Heart attack Mother Pancreatic cancer Social History Household Members: None Housing: Apartment Alcohol intake: never Cigarette Packs Per Day: 0.5 Cigarettes Per Day: 10.0 Years Smoked: 25 Female Reproductive History Menstrual Age of Menarche: 11 Review of Systems Const Denies weight gain and Denies weight loss ENT Reports no additional complaints, Denies dysphagia and Denies odynophagia Card Reports no additional complaints Resp Reports no additional complaints GI Denies abdominal pain, Denies belching, Denies melena, Reports bloating, Reports hematochezia (Occasional), Denies change in bowel habits, Denies dysphagia, Denies excessive flatus, Denies dyspepsia, Denies heartburn, Denies diarrhea, Denies loose stools, Denies nausea, Denies odynophagia and Denies vomiting Reports no additional complaints Musc Reports no additional complaints Neuro Reports no additional complaints Psych Reports no additional complaints Endo Reports no additional complaints Physical Exam Vital Signs: BMI result Body Mass Index 20.1 Const General: healthy appearing, no acute distress and well developed Nutritional Appearance: well nourished Orientation/consciousness: patient oriented x3 HEENT Head: Yes normal to inspection, Yes normocephalic and Yes atraumatic Face and sinus: Yes normal facial exam Mouth: Normal oral and palatal mucosa present Throat: Yes posterior oropharynx normal, Yes tonsils normal and Yes uvula midline Eyes General: appearance normal, both eyes and all related structures Neck Neck: Yes normal visual inspection, Yes full ROM and Yes trachea midline Thyroid: Thyroid normal Resp Effort & Inspection: normal respiratory effort, able to speak in complete sentences, no tracheal deviation and symmetric chest movement Auscultation: clear to auscultation bilaterally Cardio Rate: regular rate Heart sounds: S1 normal heart sound present and S2 normal heart sound present GI Inspection: Yes normal to inspection and No distended Palpation (GI): Soft to palpation, not firm, nontender and No hepatosplenomegaly present Auscultation: normal bowel sounds General: Yes no CVA tenderness Back/Spine/Pelvis Back: no CVA tenderness Skin General skin exam: elasticity normal, turgor normal and dry skin Neuro General: patient oriented x3 Psych Appearance: grossly normal Mental Status: mental status grossly normal Speech and movement: Normal speech and movement present Assessment & Plan Assessment & Plan (1) GERD (gastroesophageal reflux disease): Code(s): K21.9 - Gastro-esophageal reflux disease without esophagitis Qualifiers: Esophagitis presence: esophagitis presence not specified Qualified Code(s): K21.9 - Gastro-esophageal reflux disease without esophagitis Plan: Continue omeprazole twice a day. Patient will be sent for upper endoscopy to rule out gastritis, esophagitis, duodenitis, Sanford's, gastric or peptic ulcer, H pylori. Patient just finished treatment for H pylori. Will need to check for eradication (2) Postprandial abdominal bloating: Code(s): R14.0 - Abdominal distension (gaseous) Plan: Occasional postprandial abdominal bloating. Patient states that she is feeling better. Patient has more appetite and is able to tolerate food. Continue low FODMAP diet (3) Helicobacter pylori (H. pylori): Code(s): A04.8 - Other specified bacterial intestinal infections Plan: Treated with quadruple therapy. Now patient is on omeprazole. Patient has endoscopy schedule on a (4) Screen for colon cancer: Code(s): Z12.11 - Encounter for screening for malignant neoplasm of colon Plan: Patient denies any ill effects from anesthesia in the past. No history of sleep apnea. Not on any anticoagulation medication. Denies any cardiac or respiratory symptoms. What to expect before during and after the procedure discussed with patient and went over with her again. Stressed clear liquid diet day before the procedure as well as good bowel prep. I will see her after the procedure, sooner on as needed basis. Patient is agreeable to this plan and verbalizes understanding of instructions. She was given the opportunity to ask questions all questions answered. Thank you for allowing me to participate in her care Coding Level of Care Code Est Pt Level 3 (00625) Diagnoses GERD (gastroesophageal reflux disease) K21.9 Esophagitis presence: esophagitis presence not specified Postprandial abdominal bloating R14.0 Helicobacter pylori (H. pylori) A04.8 Screen for colon cancer Z12.11 Time Spent (min) 30 Comment 20 minutes spent with patient and additional 10 minutes spent reviewing her records
== END 2023-02-24 15:34 | disposition home or self-care (01) ==
PROVIDERS: PCP Internal Medicine; Visit Provider Nurse Practitioner Family
DX: K21.9 Gastro-esophageal reflux disease without esophagitis (principal); R14.0 Abdominal distension (gaseous); A04.8 Other specified bacterial intestinal infections; Z12.11 Encounter for screening for malignant neoplasm of colon
CPT/HCPCS: 99213

== ENCOUNTER → 2023-02-24 12:38 | Outpatient (BNVA) | payer MEDICAID, SELFPAY | PROVIDERS: PCP Internal Medicine; Visit Provider Nurse Practitioner Family | DX: K21.9 Gastro-esophageal reflux disease without esophagitis (principal); R14.0 Abdominal distension (gaseous); A04.8 Other specified bacterial intestinal infections; Z79.899 Other long term (current) drug therapy | CPT/HCPCS: 99212 ==

== ENCOUNTER 2023-06-07 15:35 | Outpatient (REF) | payer MEDICAID, SELFPAY ==
--- NOTE | ~2023-06-07 | US_ITS ---
EXAMINATION: US PELVIS CLINICAL INFORMATION: Leiomyoma of uterus. Postmenopausal. COMPARISON: November 10, 2022. TECHNIQUE: Ultrasound of the pelvis is performed using both transabdominal and transvaginal transducers along with Doppler. Transvaginal imaging is performed due to inadequate visualization transabdominally. FINDINGS: The uterus is heterogeneous and measures 6.7 x 3.2 x 4.5 cm. Redemonstration of a 0.6 x 0.5 x 0.6 cm submucosal fibroid in the anterior body of the uterus, previously 0.6 x 0.4 x 0.6 cm on 11/12/2022. Endometrial thickness is 0.5 cm, possibly abnormal in a postmenopausal patient.. Right ovary measures 2.6 x 1.5 x 1.3 cm, volume 2.7 mL. Left ovary measures 2.5 x 1.5 x 1.4 cm, volume 2.7 mL. The bilateral ovaries are grossly unremarkable, although limited visualization due to peristalsing bowel. No significant free fluid. Nabothian cysts identified in the cervix. Echogenic foci within the cervix may represent calcifications. US/US pelvic and transvaginal IMPRESSION: 1. Redemonstration of a 0.6 cm submucosal fibroid in the anterior body of the uterus, previously 0.6 cm on 11/12/2022. 2. Endometrial thickness is 0.5 cm, possibly abnormal in a postmenopausal patient. Recommend correlation with clinical and menstrual history. Gynecologic consultation and possible biopsy recommended.
== END 2023-06-07 15:36 | disposition home or self-care (01) ==
LOC: HO.HMGCX 15:35
PROVIDERS: PCP Internal Medicine; Visit Provider Advanced Practice Midwife
DX: D25.9 Leiomyoma of uterus, unspecified (principal)
CPT/HCPCS: 76830; 76856

== ENCOUNTER 2023-07-13 11:17 | Outpatient (AMB) | payer MEDICAID, SELFPAY ==
[2023-07-13 11:36] VITALS: BP 108/62; BMI 20.2
--- NOTE | 2023-07-13 11:36 | MHC.OFFVIS ---
Intake Vital Signs 07/13/23 11:36 Height 5 ft 6 in Weight 125 lb BMI 20.2 BP 108/62 Intake Visit Reasons: Ultra sound follow up Allergies penicillamine [PENICILLAMINE] Allergy (Intermediate, Verified 02/24/23 12:55) HIVES tomato [TOMATO] Allergy (Unknown, Verified 02/24/23 12:55) UNKNOWN HPI HPI Comments History of Present Illness Details Patient is here for an ultrasound follow-up, history of pelvic pain cramping, she reports bleeding lightly about a week to week and half ago. Prior visit she was uncertain if it was vaginal bleeding or rectal bleeding. She has been planning to have endoscopy/colonoscopy for approximately a year and has been rescheduled due to her cold and cough situations. She does not have one scheduled at this point. She reports she is prone to BV. [facility] Medical History GERD (gastroesophageal reflux disease) Uterine fibroid Smoking Right-sided Wagner's palsy Hyperlipidemia Anxiety Depression Left renal mass Fibromyalgia Surgical History Hx of dilation and curettage History of cervical polypectomy Hx of colonoscopy H/O tubal ligation Family History Sister Breast cancer Brother Heart attack Mother Pancreatic cancer Social History Household Members: None Housing: Apartment Alcohol intake: never Cigarette Packs Per Day: 0.5 Cigarettes Per Day: 10.0 Years Smoked: 25 Female Reproductive History Menstrual Age of Menarche: 11 Review of Systems Const All systems reviewed & are unremarkable except as noted in HPI and below Physical Exam Vital Signs: Last Vital Signs BP 108/62 07/13/23 11:36 BMI result Body Mass Index 20.2 Const General: cooperative, healthy appearing and no acute distress Orientation/consciousness: patient oriented x3 GI Inspection: Yes normal to inspection Palpation (GI): Soft to palpation and Other GI palpation findings present (Nontender) Rectal Exam - Female: visual inspection normal General: Yes bladder normal to palpation External Female Exam: normal appearance of the urethra Speculum Exam - Vagina: normal appearance of the vagina, normal palpation, normal vaginal discharge (Thin, white) and vagina atrophic Speculum Exam - Cervix: normal appearance of the cervix and normal palpation Bimanual exam- vagina & uterus: normal bimanual exam, normal palpation, uterine size normal, bladder normal to palpation, normal palpation, uterine shape normal and non-tender Bimanual Exam- Adnexa, other: normal adnexae Neuro General: patient oriented x3 Results Reviewed Results Reviewed: [address] [address] Ultrasound Report Signed Patient: Ele Chacon I MR#: [id number] : 08/24/2001 Acct:[id number] Age/Sex: 21 / F ADM Date: 06/29/23 Loc: .[place] Attending Dr: Shanice Garcia CNM Ordering Physician: Shanice Garcia CNM Date of Service: 06/29/23 Procedure(s): US pelvic and transvaginal Accession Number(s): [id number] cc: Simone Rios PA-C; Shanice Garcia CNM~ EXAMINATION: US PELVIS AND TRANSVAGINAL CLINICAL INFORMATION: Left ovarian cyst, last menstrual period 06/21/2023. Left lower quadrant pain. COMPARISON: Pelvic ultrasound of 04/29/2023. TECHNIQUE: Ultrasound of the pelvis is performed using both transabdominal and transvaginal transducers along with Doppler. Transvaginal imaging is performed due to inadequate visualization transabdominally. FINDINGS: The uterus measures 6.7 x 4.0 x 5.1 cm. No discrete fibroid identified. Small amount of free fluid in the pelvis. Endometrial thickness is 0.8 cm. Endometrium is multilayered. Right ovary measures 3.7 x 2.4 x 1.9 cm, volume 8.8 mL. Left ovary measures 3.6 x 2.2 x 3.0 cm, volume 12.4 mL. Bilateral ovaries demonstrate multiple small follicles. US/US pelvic and transvaginal IMPRESSION: 1. No discrete fibroid. 2. Endometrial thickness is 0.8 cm. 3. Bilateral ovaries demonstrate multiple small follicles. 4. Small amount of free fluid in the pelvis. Dictated By: Catie Liu MD Signed By: <Electronically signed by Catie Liu MD in OV> 06/30/23 1339 DD/ 1419 TD/TT: Log Roller: Assessment & Plan Assessment & Plan (1) Postmenopausal bleeding: Code(s): N95.0 - Postmenopausal bleeding (2) Uterine fibroid: Code(s): D25.9 - Leiomyoma of uterus, unspecified Qualifiers: Uterine leiomyoma location: unspecified location Qualified Code(s): D25.9 - Leiomyoma of uterus, unspecified (3) Encounter to discuss test results: Code(s): Z71.2 - Person consulting for explanation of examination or test findings Plan Discussed: BV and GC chlamydia obtained today. Ultrasound findings including endometrial measurements, fibroid. Advised an endometrial biopsy. Offered procedure today, patient declined would prefer to have it done in the OR as she did in the past and not be awake. Advised to reach out to GI Department in schedule her procedures. Staff to call GI department for appointment status. Consult with Dr. Tang for hysteroscopy, as patient prefers to be under anesthesia verses awake. All of her questions and concerns were addressed to the best of my ability and shared decision making. She is agreeable to the plan of care. Orders: Orders CT NG by PCR Today R10.2 - Pelvic and perineal pain Bacterial Vaginosis Panel Today R10.2 - Pelvic and perineal pain Coding Level of Care Code Est Pt Level 3 (45327) Diagnoses Postmenopausal bleeding N95.0 Uterine leiomyoma, unspecified location D25.9 Uterine leiomyoma location: unspecified location Encounter to discuss test results Z71.2
== END 2023-07-13 12:01 | disposition home or self-care (01) ==
LOC: HO.HWS 11:17
PROVIDERS: PCP Internal Medicine; Visit Provider Advanced Practice Midwife
DX: N95.0 Postmenopausal bleeding (principal); D25.9 Leiomyoma of uterus, unspecified; Z71.2 Person consulting for explanation of examination or test findings
CPT/HCPCS: 99213

== ENCOUNTER 2023-07-13 11:17 | Outpatient (REF) | payer MEDICAID, SELFPAY | END 2023-07-13 11:18 | disposition home or self-care (01) | LOC: HO.LNP 11:17 | PROVIDERS: PCP Internal Medicine; Visit Provider Advanced Practice Midwife | DX: D25.9 Leiomyoma of uterus, unspecified (principal); N95.0 Postmenopausal bleeding; R10.2 Pelvic and perineal pain; Z71.2 Person consulting for explanation of examination or test findings | CPT/HCPCS: 0353U; 87480; 87510; 87660; 99212 ==

== ENCOUNTER 2023-07-13 11:53 | Outpatient (REF) | payer MEDICAID, SELFPAY ==
[2023-07-13 16:51] LABS: CT PCR NOT DETECTED (Not Detect.); NG PCR NOT DETECTED (Not Detect.)
[2023-07-14 11:06] LABS: BV Int Neg Control Negative (Negative); BV Int Pos Control Positive (Positive)
== END 2023-07-13 11:54 | disposition home or self-care (01) ==
LOC: HO.LAB 11:53
PROVIDERS: Visit Provider Advanced Practice Midwife
DX: R10.2 Pelvic and perineal pain (principal)
CPT/HCPCS: 0353U; 87480; 87510; 87660

== ENCOUNTER 2023-07-13 12:28 | Outpatient (REF) | payer MEDICAID, SELFPAY ==
[2023-07-13 13:18] LABS: MANUAL DIFF FLAG NO
[2023-07-13 13:22] LABS: Basophils Percent Auto 0.9 % (0-2); Eosinophils Absolute Auto 0.1 X10*3/uL (0.0-0.4); Eosinophils Percent Auto 1.6 % (0-4); Hematocrit 38.4 % (37.0-47.0); Hemoglobin 12.7 g/dl (12.0-16.0); Lymphocytes Absolute Auto 1.7 X10*3/uL (1.2-4.9); Mean Corpuscular HGB Conc 33.1 g/dl (31.0-35.0); Mean Corpuscular Hemoglobin 29.9 pg (27.0-33.0); Mean Corpuscular Volume 90.4 fL (80.0-98.0); Mean Platelet Volume 9.3 fL (9.4-12.3); Monocytes Absolute Auto 0.4 X10*3/uL (0.1-1.2); Monocytes Percent Auto 9.8 % (2-11); Neutrophils Absolute Auto 2.2 x10*3/uL (2.0-8.3); Neutrophils Percent Auto 49.7 % (45-73); Platelet Count 241 X10*3/uL (160-400); Red Blood Count 4.25 X10*6/uL (4.20-5.50); Red Cell Distribution Width 12.8 % (11.0-16.0); White Blood Count 4.4 X10*3/uL (4.8-10.8)
[2023-07-13 15:07] LABS: Alanine Aminotransferase 7 U/L (0-31); Albumin Level 4.5 g/dL (3.5-5.0); Alkaline Phosphatase 71 U/L (39-117); Anion Gap 12 (12-20); Aspartate Amino Transferase 13 U/L (5-31); Bilirubin Total 0.3 mg/dL (0.0-1.0); Blood Urea Nitrogen 12 mg/dL (9-16); Calcium 9.3 mg/dL (8.4-10.2); Carbon Dioxide 26 mmol/L (22-29); Chloride 109 mmol/L (96-108); Cholesterol 259 mg/dL (<200); Estimated Glomerular Filt Rate > 60; Glucose Random 95 mg/dL (60-115); HDL Cholesterol 55 mg/dL (>40); LDL Cholesterol Calculated 185 mg/dL (<100); Potassium 3.9 mmol/L (3.3-5.1); Sodium 143 mmol/L (135-145); Thyroid Stimulating Hormone 1.36 uIU/mL (0.32-4.0); Total Protein 7.6 g/dL (6.5-8.0); Triglycerides 98 mg/dL (<150)
== END 2023-07-13 12:29 | disposition home or self-care (01) ==
LOC: HO.10HDL 12:28
PROVIDERS: Visit Provider Internal Medicine
DX: D72.820 Lymphocytosis (symptomatic) (principal); N20.0 Calculus of kidney; R11.10 Vomiting, unspecified; Z72.0 Tobacco use
CPT/HCPCS: 36415; 80053; 80061; 84443; 85025

== ENCOUNTER 2023-07-26 13:42 | Outpatient (REF) | payer MEDICAID, SELFPAY ==
[2023-07-26 14:52] LABS: Alanine Aminotransferase 14 U/L (0-31); Albumin Level 4.4 g/dL (3.5-5.0); Alkaline Phosphatase 73 U/L (39-117); Anion Gap 12 (12-20); Aspartate Amino Transferase 15 U/L (5-31); Bilirubin Total 0.3 mg/dL (0.0-1.0); Blood Urea Nitrogen 9 mg/dL (9-16); Calcium 9.5 mg/dL (8.4-10.2); Carbon Dioxide 27 mmol/L (22-29); Chloride 109 mmol/L (96-108); Cholesterol 223 mg/dL (<200); Estimated Glomerular Filt Rate > 60; Glucose Random 98 mg/dL (60-115); HDL Cholesterol 61 mg/dL (>40); LDL Cholesterol Calculated 148 mg/dL (<100); Sodium 144 mmol/L (135-145); Total Protein 7.3 g/dL (6.5-8.0); Triglycerides 72 mg/dL (<150)
[2023-07-27 07:29] LABS: HIV AB/AG Nonreactive (Nonreactive); HIV Num 1 0.05 S/CO (0.00-0.99)
== END 2023-07-26 13:43 | disposition home or self-care (01) ==
LOC: HO.LAB 13:42
PROVIDERS: PCP Internal Medicine; Visit Provider Internal Medicine
DX: Z00.01 Encounter for general adult medical examination with abnormal findings (principal); E78.00 Pure hypercholesterolemia, unspecified; F32.9 Major depressive disorder, single episode, unspecified; Z72.0 Tobacco use
CPT/HCPCS: 36415; 80053; 80061; 87389

== ENCOUNTER 2023-07-28 13:01 | Outpatient (AMB) | payer MEDICAID, SELFPAY ==
[2023-07-28 13:09] VITALS: BP 112/68; BMI 19.9
--- NOTE | 2023-07-28 13:09 | MHC.OFFVIS ---
Intake Vital Signs 07/28/23 13:09 Height 5 ft 6 in Weight 123 lb 7.342 oz BMI 19.9 BP 112/68 Intake Visit Reasons: consult for hysterescopy Underwear Hemmer: Underwear Hemmer Present Allergies penicillamine [PENICILLAMINE] Allergy (Intermediate, Verified 02/24/23 12:55) HIVES tomato [TOMATO] Allergy (Unknown, Verified 02/24/23 12:55) UNKNOWN Is last menstrual period known: Yes Last menstrual period: 04/18/20 Post menopausal: No Patient : No Do you need a note to return to daycare/school/sports/work: Yes (for surgery on wednesday) HPI HPI Comments History of Present Illness Details The patient is presenting referred from Shanice Garcia CNM regarding postmenopausal bleeding. Last co testing was in 11/08 was negative. Pelvic ultrasound done recently showed the following: The uterus is heterogeneous and measures 6.7 x 3.2 x 4.5 cm. Redemonstration of a 0.6 x 0.5 x 0.6 cm submucosal fibroid in the anterior body of the uterus, previously 0.6 x 0.4 x 0.6 cm on 11/12/2022. Endometrial thickness is 0.5 cm, possibly abnormal in a postmenopausal patient.. Right ovary measures 2.6 x 1.5 x 1.3 cm, volume 2.7 mL. Left ovary measures 2.5 x 1.5 x 1.4 cm, volume 2.7 mL. The bilateral ovaries are grossly unremarkable, although limited visualization due to peristalsing bowel. No significant free fluid. Nabothian cysts identified in the cervix. Echogenic foci within the cervix may represent calcifications. [facility] Medical History GERD (gastroesophageal reflux disease) Uterine fibroid Smoking Right-sided Wagner's palsy Hyperlipidemia Anxiety Depression Left renal mass Fibromyalgia Surgical History Hx of dilation and curettage History of cervical polypectomy Hx of colonoscopy H/O tubal ligation Family History Sister Breast cancer Brother Heart attack Mother Pancreatic cancer Social History Household Members: None Housing: Apartment Alcohol intake: never Cigarette Packs Per Day: 0.5 Cigarettes Per Day: 10.0 Years Smoked: 25 Female Reproductive History Menstrual Age of Menarche: 11 Date of last menstrual period: 04/18/20 Total pregnancies: 2 Full term: 2 Review of Systems Card Reports as per HPI and Reports no additional complaints Resp Reports as per HPI and Reports no additional complaints GI Reports as per HPI and Reports no additional complaints Reports as per HPI Physical Exam Vital Signs: Last Vital Signs BP 112/68 07/28/23 13:09 BMI result Body Mass Index 19.9 Const General: cooperative, healthy appearing and comfortable Resp Effort & Inspection: normal respiratory effort Auscultation: clear to auscultation bilaterally Percussion: percussion normal Cardio Palpation: normal PMI Rate: regular rate Rhythm: regular rhythm Heart sounds: no murmurs and no rubs Peripheral pulses: Peripheral pulses 2+ throughout GI Inspection: Yes normal to inspection Palpation (GI): Soft to palpation, nontender, no guarding, not rigid and No hepatosplenomegaly present Percussion: Yes normal to percussion Auscultation: normal bowel sounds Rectal Exam - Female: deferred Assessment & Plan Assessment & Plan (1) Postmenopausal bleeding: Comment: Thick endometrium with submucosal myoma by ultrasound Code(s): N95.0 - Postmenopausal bleeding Plan: Discussed with the patient the pelvic ultrasound findings, the endometrial stripe thickenss measured by ultrasound was more than 4mm and the finding of submucosal myoma. The negative predictive value, positive predictive value, Sensitivity, specificity of using ultrasound measurement of endometrial stripe to detecting endometrial pathology including hyperplasia , polyp or cancer were discussed with the patient. Recommended to the patient that the next step is an endometrial sampling via hysteroscopy D&C possible polypectomy/myomectomy versus endometrial biopsy to r/o endometrial pathology including hyperplasia or cancer. All the pros and cons risks and benefits of each approach were discussed with the patient, endometrial biopsy being less invasive, office procedure with less sensitivity and inability diagnose a polyp/myoma and removal versus hysteroscopy done under anesthesia more invasive more sensitive to endometrial cancer and possibility of diagnosing and endometrial polyp/myoma with the possibility of polypectomy/myomectomy. All questions were answered pt verbalized understanding and decided to proceed with hysteroscopy D&C possible polypectomy/myomectomy. Discussed with the patient the procedure , all benefits and risks including but not limited to inability to complete the procedure , insufficient endometrial tissue for a complete evaluation of the endometrial cavity , bleeding, infection, possible need for blood transfusion with all its risk ( HIV,syphilis, Hepatitis, anaphylaxis shock, others..), injury to bladder, rectum, possible need for laparoscopy/laparotomy or hysterectomy. The patient verbalized understanding and signed the consent. Instructions given the patient to schedule a 2 week postoperative appointment Coding Level of Care Code Est Pt Level 3 (53378) Diagnoses Postmenopausal bleeding N95.0
== END 2023-07-28 13:45 | disposition home or self-care (01) ==
LOC: HO.HWS 13:01
PROVIDERS: PCP Internal Medicine; Visit Provider Obstetrics & Gynecology
DX: N95.0 Postmenopausal bleeding (principal)
CPT/HCPCS: 99213

== ENCOUNTER → 2023-07-28 13:01 | Outpatient (BNVA) | payer MEDICAID, SELFPAY | PROVIDERS: PCP Internal Medicine; Visit Provider Obstetrics & Gynecology | DX: N95.0 Postmenopausal bleeding (principal) | CPT/HCPCS: 99212 ==

== ENCOUNTER 2023-09-17 06:04 | Day surgery (SDC) | payer MEDICAID, SELFPAY ==
[2023-08-18 08:55] VITALS: BMI 19.9
[2023-09-15 07:51] VITALS: BMI 19.9
--- NOTE | 2023-09-15 14:13 | HO.ANESPROP2 ---
Documented by User: Mary Alice Conteh NP 09/15/23 14:14 HPI - Anesthesia Eval Consult details Narrative: 58yo F D&C Hysteroscopy,possible myomectomy,possible polypectomy PMFSH Active Problems Active Problems: All Active Problems Vaginal Discharge (Acute) Encounter for annual routine gynecological examination (Acute) Vulvovaginal candidiasis (Acute) UTI (urinary tract infection) (Acute) Postmenopausal bleeding (Acute) Microscopic hematuria (Acute) Pelvic pain (Acute) Carpal tunnel syndrome, bilateral (Acute) Cervical radiculopathy (Acute) Uterine fibroid (Acute) Smoking (Acute) Past Medical History Medical History GERD (gastroesophageal reflux disease) Uterine fibroid Smoking Right-sided Wagner's palsy Hyperlipidemia Anxiety Depression Left renal mass Fibromyalgia Family History Family History Sister Breast cancer Brother Heart attack Mother Pancreatic cancer Surgical History Surgical History Hx of dilation and curettage History of cervical polypectomy Hx of colonoscopy H/O tubal ligation Social History Social History Household Members: None Housing: Apartment Alcohol intake: never Patient Tobacco Use Status: Current everyday Tobacco user Cigarette Packs Per Day: 0.5 Cigarettes Per Day: 10.0 Years Smoked: 25 Date Education Initiated: 09/17/23 Use of substances other than those prescribed or required for medical reasons: Yes Substance Use Frequency: Daily Advance Directives: No Advance Directives Information Provided: Yes Meds Allergies Allergy/AdvReac Type Severity Reaction Status Date / Time penicillamine [PENICILLAMINE] Allergy Intermediate HIVES Verified 02/24/23 12:55 tomato [TOMATO] Allergy Unknown UNKNOWN Verified 02/24/23 12:55 Home Medications Medication Instructions Recorded Confirmed Last Taken Type sertraline 100 mg tablet 100 mg PO DAILY 06/05/20 09/17/23 Unknown History fluticasone propionate 110 2 puff inhalation BID 11/01/20 09/17/23 Unknown History mcg/actuation HFA aerosol inhaler (Flovent HFA) Exam Height,Weight and Vital Signs: Height 5 ft 6 in Weight 55.792 kg Assessment and Plan Assessment Anesthesia Assessment: Chart Reviewed Documented by User: Ed Lucero MD 09/17/23 07:31 PMFSH Past Medical History Medical History GERD (gastroesophageal reflux disease) Uterine fibroid Smoking Right-sided Wagner's palsy Hyperlipidemia Anxiety Depression Left renal mass Fibromyalgia Family History Family History Sister Breast cancer Brother Heart attack Mother Pancreatic cancer Family history of problems with anesthesia: No Surgical History Surgical History Hx of dilation and curettage History of cervical polypectomy Hx of colonoscopy H/O tubal ligation History of Problems with Anesthesia: No Social History Social History Household Members: None Housing: Apartment Alcohol intake: never Patient Tobacco Use Status: Current everyday Tobacco user Cigarette Packs Per Day: 0.5 Cigarettes Per Day: 10.0 Years Smoked: 25 Date Education Initiated: 09/17/23 Use of substances other than those prescribed or required for medical reasons: Yes Substance Use Frequency: Daily Advance Directives: No Advance Directives Information Provided: Yes Meds Allergies Allergy/AdvReac Type Severity Reaction Status Date / Time penicillamine [PENICILLAMINE] Allergy Intermediate HIVES Verified 02/24/23 12:55 tomato [TOMATO] Allergy Unknown UNKNOWN Verified 02/24/23 12:55 Home Medications Medication Instructions Recorded Confirmed Last Taken Type sertraline 100 mg tablet 100 mg PO DAILY 06/05/20 09/17/23 Unknown History fluticasone propionate 110 2 puff inhalation BID 11/01/20 09/17/23 Unknown History mcg/actuation HFA aerosol inhaler (Flovent HFA) Exam Airway Mallampati Class: I TM Dist: >3cm Neck ROM: Full Heart: ok Lungs: ok Other: cracked teeth Assessment and Plan Assessment Anesthesia Assessment: Anesthesia Plan Discussed Final Anesthetic Review Family History of Problems with Anesthesia: No History of Problems with Anesthesia: No NPO: Yes ASA Class: II Final Preanesthetic Review: No Changes in Pt Med Stat, Meds/Allgs Chart Reviewed, Consent Obtained/Reviewed and Anes Risks/Benef Reviewed Patient Risk: Intermediate Procedure Risk: Low Anesthetic Plan Anesthetic Plan: GA and Agree w/ Assess. and Plan Disposition: Standard PACU
[2023-09-17] VITALS (7 sets, daily range): BP systolic 114–139; BP diastolic 65–77; PULSE 51–99; RESP 16–18; TEMP 36.1–36.4; O2SAT 97–100; BMI 46.2
[2023-09-17] MEDS: Lactated Ringers 1,000 ML 100 ML IVCONT (06:44)
--- NOTE | 2023-09-17 07:31 | MHC.SHP ---
Pre-Procedural Eval Section A - 24 Hr Update-Section A only Date of Service: 09/17/23 The patient is an INPATIENT: No Changes since office visit: No Cold of Flu in the past 2 weeks, No New Medical Problems, No Changes in Medication and No Patient answered all questions The patient has been examined within 24 hours of the surgical procedure. The History & Physical has been completed within 30 days and I have reviewed it.: Yes Section B - Complete if H&P > 30 days Chief Complaint: Postmenopausal bleeding Allergies: Allergies Allergy/AdvReac Type Severity Reaction Status Date / Time penicillamine [PENICILLAMINE] Allergy Intermediate HIVES Verified 02/24/23 12:55 tomato [TOMATO] Allergy Unknown UNKNOWN Verified 02/24/23 12:55 Plan Diagnosis/Plan: Unchanged I have reviewed the history and physical and performed a pertinent physical examination on my patient. No changes have occurred unless specified. Time Spent With Patient Time: Total time managing care of this patient today ____ minutes.
--- NOTE | 2023-09-17 08:05 | PM.OP ---
Brief Operative Note Date of Service: 09/17/23 Pre-op diagnosis: Postmenopausal bleeding Post-op diagnosis: same (Normal endometrial cavity) Procedure: Hysteroscopy D&C Surgeon: Jt Tang MD Anesthesia: GLMA Was an Automatic Folder Seamer used for this Procedure?: No Estimated blood loss (mL): 0 Pathology: other (Endometrial Scrapping. ) Condition: stable Disposition: PACU
--- NOTE | 2023-09-17 08:06 | P.OP_ITS ---
Operative Note Operative Note Date of Service: 09/17/23 Narrative: Preop Diagnosis: Post Menopausal bleeding Operation: Diagnostic Hysteroscopy, Dilataion & Curettage Post Op Diagnosis: Normal endometrial cavity QBL: Minimal Anesthesia: GLMA Surgeon: Jt Tang MD Brushing Machine Operator: None Complication: None Pathology: Endometrial Scrapings Procedure: The patient was put in the dorsal lithotomy position, scrubbed, and draped in the usual manner. A sterile speculum was inserted in the patient's vagina. The anterior lip of the cervix was grasped with a single tooth tenaculum. The cervix was dilated up to 5 mm, then the scope was inserted in the patient's uterus. Inspection revealed Normal endometrial cavity. The Myosure Reach device was used; the scope was removed from the endometrial cavity , sharp curettings was carried on with minimal to moderate amount of tissues retrieved. At the end of the procedure, all instruments were taken out of the patient uterine and vaginal cavity. The single tooth tenaculum was removed and homeostasis was assured using pressure,. The patient tolerated the procedure well and was transferred to the PACU in a stable condition.
== END 2023-09-17 09:20 | disposition home or self-care (01) ==
PROVIDERS: PCP Internal Medicine; Visit Provider Obstetrics & Gynecology
PROC: 0UDB8ZZ Extraction of Endometrium, Via Natural or Artificial Opening Endoscopic (ICD-10-PCS; CPT 58558; principal; 2023-09-17 07:30)
DX: N95.0 Postmenopausal bleeding (principal); D25.0 Submucous leiomyoma of uterus; N88.8 Other specified noninflammatory disorders of cervix uteri; M79.7 Fibromyalgia; G51.0 Bell's palsy; E78.5 Hyperlipidemia, unspecified; Z79.899 Other long term (current) drug therapy; Z88.0 Allergy status to penicillin; F17.210 Nicotine dependence, cigarettes, uncomplicated; Z98.51 Tubal ligation status
CPT/HCPCS: 58558; 88305; J1885; J2405; J2704; J3010

== ENCOUNTER → 2023-09-17 06:04 | Outpatient (BNV) | payer MEDICAID, SELFPAY | PROVIDERS: PCP Internal Medicine; Visit Provider Obstetrics & Gynecology | DX: N95.0 Postmenopausal bleeding (principal) | CPT/HCPCS: 58558 ==

== ENCOUNTER 2023-09-22 14:12 | Outpatient (AMB) | payer MEDICAID, SELFPAY ==
--- NOTE | 2023-09-22 14:22 | MHC.OFFVIS ---
Intake Vital Signs 09/22/23 14:23 Height 5 ft 6 in Weight 127 lb 13.89 oz BMI 20.6 BP 118/78 Blood Pressure Location Lt brachial Position Sitting Pulse 73 Intake Visit Reasons: r/s prev hs/adlakha/afib Intake Note: follow up [employer] Required: No Accompanied by: Self / Same As Patient Allergies penicillamine [PENICILLAMINE] Allergy (Intermediate, Verified 09/22/23 14:23) HIVES tomato [TOMATO] Allergy (Unknown, Verified 09/22/23 14:23) UNKNOWN Medication List - Last Reconciled 09/22/23 by Richard Martinez MD fluticasone propionate 110 mcg/actuation (Flovent HFA) 2 puffs inhalation BID mirtazapine 7.5 mg PO BEDTIME omeprazole 20 mg PO BID rosuvastatin 40 mg PO DAILY sertraline 100 mg PO DAILY tetracycline 1,000 mg (2 x 500 mg) PO Q12H HPI HPI Comments History of Present Illness Details Shayna is here for consultation after recent ER visit to [facility]. It seems that she was seen there for palpitations/weakness. According to primary care note, EKG and cardiac enzymes are unremarkable. She also apparently had a CTA chest that was unremarkable. PCP note also mentions atrial fibrillation but not clear how that was diagnosed. We need to obtain the ER records directly. Otherwise, patient was seen around 6 years ago in our clinic. She has had a chronic finding of anteroseptal infarct on the EKG but unremarkable testing in the past. She is a chronic smoker and still smokes. She gets short of breath with activity but has been like this for a while. She also frequently feels her chest feeling fluttering/pounding and happens almost daily. She does not have any clear substernal chest pain but gets an atypical pain towards the left shoulder. [facility] Medical History GERD (gastroesophageal reflux disease) Uterine fibroid Smoking Right-sided Wagner's palsy Hyperlipidemia Anxiety Depression Left renal mass Fibromyalgia Surgical History Hx of dilation and curettage History of cervical polypectomy Hx of colonoscopy H/O tubal ligation Family History Sister Breast cancer Brother Heart attack Mother Pancreatic cancer Social History Household Members: None Housing: Apartment Alcohol intake: never Patient Tobacco Use Status: Current everyday Tobacco user Cigarette Packs Per Day: 0.5 Cigarettes Per Day: 10.0 Years Smoked: 25 Female Reproductive History Menstrual Age of Menarche: 11 Review of Systems Const Denies weakness ENT Denies dizziness Card Denies chest pain, Denies chest pain with activity, Denies syncope, Denies rapid heart rate, Denies pedal edema, Denies edema, Denies leg edema, Denies lightheadedness, Denies palpitations, Denies dyspnea, Denies dyspnea on exertion and Denies orthopnea Resp Denies cough, Denies dyspnea and Denies dyspnea on exertion GI Denies hematochezia and Denies change in stool character Musc Denies abnormal gait, Denies muscle cramps, Denies muscle weakness, Denies numbness, Denies radiating pain into limb and Denies tingling Neuro Denies abnormal gait, Denies dizziness, Denies syncope, Denies numbness, Denies tingling and Denies weakness Endo Denies palpitations Physical Exam Vital Signs: Last Vital Signs Pulse 73 09/22/23 14:23 BP 118/78 09/22/23 14:23 BMI result Body Mass Index 20.6 Const General: comfortable and no acute distress Orientation/consciousness: patient oriented x3 HEENT Other: Unremarkable Head: Yes normal to inspection Neck Neck: Yes normal visual inspection Chest Chest palpation & inspection: normal inspection of the chest Resp Auscultation: clear to auscultation bilaterally Cardio Palpation: normal PMI Heart sounds: S1 normal heart sound present, S2 normal heart sound present, no gallops, no murmurs and no rubs GI Palpation (GI): Soft to palpation Back/Spine/Pelvis Other: unremarkable Skin General skin exam: no rashes or lesions noted Neuro General: patient oriented x3 Extrem General: Yes normal to inspection Psych Mental Status: mental status grossly normal Office Procedures EKG Details: EKG today shows sinus rhythm at 70/Min; old anteroseptal infarct. Normal [place]/corrected QT. chronic finding. [id number], Complete Assessment & Plan Assessment & Plan (1) Heart palpitations: Code(s): R00.2 - Palpitations (2) SOB (shortness of breath): Code(s): R06.02 - Shortness of breath (3) Abnormal EKG: Code(s): R94.31 - Abnormal electrocardiogram [ECG] [EKG] Plan Various symptoms including shortness of breath, palpitations, atypical chest pain and chronic smoking. Anteroseptal infarct finding on EKG but that is also chronic. Echocardiogram/Perfusion imaging from 2018 was unremarkable. Based on the constellation of symptoms described above and ongoing smoking, we will proceed with further testing. Repeat echocardiogram to assess for new cardiomyopathy. Coronary CTA to evaluate for any significant CAD, specifically LAD territory to account for the EKG findings. Holter to assess for any atrial fibrillation that is mentioned the PCP note or any other arrhythmias. Obtain ER records from [facility]. Follow-up after the above. Orders: Orders ECG 3 day holter monitor Today R00.2 - Palpitations CA echo transthoracic complete Today R06.02 - Shortness of breath CT Cardiac Coronary Angio Today I25.10 - Atherosclerotic heart disease of [place] coronary artery without angina pectoris Basic Metabolic Panel Today R06.02 - Shortness of breath Coding Level of Care Code New Pt Level 4 (97250) Diagnoses Heart palpitations R00.2 SOB (shortness of breath) R06.02 Abnormal EKG R94.31 CPT Codes EKG - CPT: 02024-[id number], Complete ([id number])
[2023-09-22 14:23] VITALS: BP 118/78; PULSE 73; BMI 20.6
== END 2023-09-22 14:52 | disposition home or self-care (01) ==
PROVIDERS: PCP Internal Medicine; Referring Provider Internal Medicine; Visit Provider Internal Medicine
DX: R00.2 Palpitations (principal); R06.02 Shortness of breath; R94.31 Abnormal electrocardiogram [ECG] [EKG]
CPT/HCPCS: 93010; 99204

== ENCOUNTER → 2023-09-22 14:12 | Outpatient (BNVA) | payer MEDICAID, SELFPAY | PROVIDERS: PCP Internal Medicine; Visit Provider Internal Medicine | DX: R00.2 Palpitations (principal); R06.02 Shortness of breath; R94.31 Abnormal electrocardiogram [ECG] [EKG] | CPT/HCPCS: 93005; 99202 ==

== ENCOUNTER 2023-09-30 13:27 | Outpatient (AMB) | payer MEDICAID, SELFPAY ==
[2023-09-30 13:47] VITALS: BP 114/76; BMI 20.5
--- NOTE | 2023-09-30 13:47 | A.OFFVIS_ITS ---
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 The pathology showed the following: Scant fragmented benign atrophic endometrium, and benign squamous and endocervical glandular epithelium; no atypia or carcinoma PFSH Medical History GERD (gastroesophageal reflux disease) Uterine fibroid Smoking Right-sided Wagner's palsy Hyperlipidemia Anxiety Depression Left renal mass Fibromyalgia Surgical History History of hysteroscopy Hx of dilation and curettage History of cervical polypectomy Hx of colonoscopy H/O tubal ligation Family History Sister Breast cancer Brother Heart attack Mother Pancreatic cancer Social History Household Members: None Housing: Apartment Alcohol intake: never Patient Tobacco Use Status: Current everyday Tobacco user Cigarette Packs Per Day: 0.5 Cigarettes Per Day: 10.0 Years Smoked: 25 Patient : No Female Reproductive History Menstrual Age of Menarche: 11 control method: permanent sterilization Review of Systems Const All systems reviewed & are unremarkable except as noted in HPI and below Reports as per HPI and Reports no additional complaints GI Reports no additional complaints Reports no additional complaints Physical Exam Vital Signs: Last Vital Signs BP 114/76 09/30/23 13:47 BMI result Body Mass Index 20.5 Assessment & Plan Assessment & Plan (1) Postmenopausal bleeding: Code(s): N95.0 - Postmenopausal bleeding Plan: Discussed with the patient the results of the D and C pathology. Discussed with the patient the sensitivity, specificity, positive and negative predictive value, of endometrial biopsy in detecting endometrial pathology including but not limited to endometrial hyperplasia, cancer and other pathology; instructed the patient to call in case vaginal bleeding bleeding recurs, the next step will be to proceed with further endometrial sampling evaluation to rule out endometrial pathology. All questions answered and the patient verbalized understanding and agreed with the plan. Coding Level of Care Code Est Pt Level 3 (99405) Diagnoses Postmenopausal bleeding N95.0
== END 2023-09-30 13:55 | disposition home or self-care (01) ==
PROVIDERS: PCP Internal Medicine; Visit Provider Obstetrics & Gynecology
DX: N95.0 Postmenopausal bleeding (principal)
CPT/HCPCS: 99213

== ENCOUNTER → 2023-09-30 13:27 | Outpatient (BNVA) | payer MEDICAID, SELFPAY | PROVIDERS: PCP Internal Medicine; Visit Provider Obstetrics & Gynecology | DX: N95.0 Postmenopausal bleeding (principal) | CPT/HCPCS: 99212 ==

== ENCOUNTER → 2023-10-21 14:09 | Outpatient (REF) | payer MEDICAID, SELFPAY ==
--- NOTE | 2023-10-21 14:13 | CA_ITS ---
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 The calculated ejection fraction is 64% by biplane method. - No obvious valvular pathology seen on this study. - The inferior vena cava is dilated and collapses less than 50% with inspiration. Findings Procedure Information Contrast agent, definity, is being given per protocol without apparent complications. Left Ventricle Normal left ventricular cavity size. The left ventricular systolic function is normal. The calculated ejection fraction is 64% by biplane method. There is no evidence of regional wall motion abnormalities. Diastolic function is normal for age. There is mild septal asymmetric hypertrophy. Right Ventricle Normal right ventricular cavity size and systolic function. Atria Both atria are normal in size. Aortic Valve There is a normal trileaflet aortic valve. There is no aortic valve stenosis. There is no aortic valve regurgitation. Mitral Valve The mitral valve appears normal. There is no mitral valve regurgitation. There is no mitral valve stenosis. Pulmonic Valve The pulmonic valve is likely normal. Tricuspid Valve Normal tricuspid valve structure. There is trace tricuspid valve regurgitation. There is no evidence of pulmonary hypertension. Great Vessels The asc aorta is normal in size. Venous The inferior vena cava is dilated and collapses less than 50% with inspiration. Pericardium/Pleural There is no evidence of pericardial effusion. Prior Study Comparison Changes noted compared to prior study dated: 08/18/2017. see comment on IVC. IVC more dilated. Recommendations, Care & Conclusions No obvious valvular pathology seen on this study. Measurements 2D Linear Measurements IVSd: 1.09 0.6-0.9/0.6-1.0 cm LVIDd: 4.26 3.9-5.3/4.2-5.9 cm LVIDd Index: 2.57 2.4-3.2/2.2-3.1 cm/m2 LVIDs: 2.86 2.0-3.6 cm LVPWd: 0.96 0.7-1.1 cm LA Diam: 2.90 2.7-3.8/3.0-4.0 cm LAIDs Index: 1.75 1.5-2.3 cm/m2 LV Mass: 181.14 67-162/88-224 g LV Mass Index: 109.12 43-95/49-115 g/m2 LVOT Diam: 2.00 3.0+(-)1.3 cm 2D Systolic Function EF 4C: 66.80 >55% EF 2C: 63.70 >55% EF BiP: 64.20 >55% Mitral Valve MV Pk E: 0.78 MV PK A: 0.46 MV Decel Time: 178.00 E/A: 1.70 E'Lateral: 8.70 E'Medial: 7.40 E/E' Med: 10.50 E/E' Lat: 9.00 PHT: 52.00 MVA PHT: 4.23 Decel Johnston: 4.38 Aortic Valve AoV Pk Efrain: 1.19 AoV Mn Efrain: 0.84 AoV VTI: 0.28 AoV Pk Grad: 6.00 Aov Mn Grad: 3.00 NAIDA Cont.VTI: 2.30 LVOT LVOT Pk Efrain: 0.92 LVOT Mn Efrain: 0.58 LVOT VTI: 0.20 LVOT Pk Grad: 3.00 LVOT Mn Grad: 2.00 LVOT Diam: 2.00 LVOT Area: 3.14 Diastolic Function MV Pk E: 0.78 MV Pk A: 0.46 E/A: 1.70 E'Medial: 7.40 E/E' Med: 10.50 E' Laterial: 8.70 E/E' Lat: 9.00 Right Ventricle TAPSE (mm): 23.60 TVS' Efrain: 12.20 Tricuspid Valve TR Pk Efrain: 2.16 TR Pk Grad: 19.00 RA Press: 15.00 RVSP: 34.00 Great Vessels Aorta Sinus of Valsalva: 3.02 2.0-3.5 cm Ao Asc: 2.80 2.1-3.4 cm Updated in Other Vendor System with Status of Final Richard Martinez MD electronically signed on 10/23/2023 11:48:42 AM with status of Final
--- NOTE | 2023-10-21 14:13 | HM_ITS ---
Conclusion: 1. Patient was monitored for total period of 2 days and 21 hours 2. Baseline was normal sinus rhythm with average heart of 75 beats per minute 3. No significant pauses noted 4. Occasional PACs noted without significant SVT 5. No patient reported events MTDD
== END ==
LOC: HO.CARD 14:09
PROVIDERS: PCP Internal Medicine; Visit Provider Internal Medicine
DX: R06.02 Shortness of breath (principal); R00.2 Palpitations
CPT/HCPCS: 93242; 93306; Q9957

== ENCOUNTER → 2023-10-21 14:13 | Outpatient (BNV) | payer MEDICAID, SELFPAY | PROVIDERS: PCP Internal Medicine; Visit Provider Internal Medicine | DX: I49.1 Atrial premature depolarization (principal) | CPT/HCPCS: 93244; 93306 ==

== ENCOUNTER 2023-11-02 08:40 | Outpatient (REF) | payer MEDICAID, SELFPAY ==
[2023-11-02 10:13] LABS: Anion Gap 14 (12-20); Blood Urea Nitrogen 6 mg/dL (9-16); Calcium 9.7 mg/dL (8.4-10.2); Carbon Dioxide 26 mmol/L (22-29); Chloride 108 mmol/L (96-108); Estimated Glomerular Filt Rate > 60; Glucose Random 82 mg/dL (60-115); Sodium 144 mmol/L (135-145)
== END 2023-11-02 08:41 | disposition home or self-care (01) ==
LOC: HO.LAB 08:40
PROVIDERS: PCP Internal Medicine; Visit Provider Internal Medicine
DX: R06.02 Shortness of breath (principal)
CPT/HCPCS: 36415; 80048

== ENCOUNTER 2024-02-10 16:17 | Emergency (ER) | payer MEDICAID, SELFPAY ==
--- NOTE | ~2024-02-10 | CT_ITS ---
EXAMINATION: CT ABDOMEN AND PELVIS WITH CONTRAST CLINICAL INFORMATION: Lower quadrant tenderness, diarrhea COMPARISON: CT from 09/03/2020 TECHNIQUE: Multidetector volumetric images were obtained from the superior aspect of the liver through the pubic symphysis following administration 85 mL of Omnipaque 350 intravenous contrast. Sagittal and coronal reformatted images were obtained on the technologist's workstation. Oral contrast: No This CT examination was performed using dose optimization techniques as appropriate, variously including the following: *Automated exposure control *Adjustment of mA and/or kV according to patient size (this includes techniques or standardized protocols for targeted exams where dose is matched to indication/reason for exam; i.e. extremities or head) *Use of iterative reconstruction technique DLP: 348 mGy-cm FINDINGS: LUNG BASES: The visualized lung bases are unremarkable. LIVER, GALLBLADDER, AND BILIARY TREE: The liver is normal in size, shape, and attenuation. No focal hepatic lesion or biliary ductal dilatation is present. The gallbladder is unremarkable with no evidence of radiopaque gallstones, gallbladder wall thickening, or obvious pericholecystic inflammatory changes. PANCREAS: Unremarkable. SPLEEN: Unremarkable. ADRENAL GLANDS: Unremarkable. KIDNEYS AND URETERS: The kidneys are normal in size, shape, and attenuation. No hydronephrosis, hydroureter seen. No perinephric stranding. There is a 2 mm nonobstructing calcified stone in the midpole of the right kidney. There is a subcortical indeterminate hypodensity within the midpole of the left kidney measuring 1.0 x 0.6 cm. BLADDER: Unremarkable. GASTROINTESTINAL TRACT: The small bowel are unremarkable. Diverticula seen within the sigmoid colon without evidence of acute diverticulitis The appendix is unremarkable. ABDOMINAL WALL: No significant hernia is appreciated. LYMPH NODES: Normal. VASCULAR: Scattered atherosclerotic wall calcification seen in the abdominal aorta and iliac arteries. There is significant reflux down the bilateral gonadal veins into the periuterine venous plexus PELVIC VISCERA: Uterus and bilateral ovaries are unremarkable. No adnexal mass lesions. OSSEOUS STRUCTURES: Unremarkable. CT/CT abdomen pelvis w IV con IMPRESSION: 1. No acute process. 2. Diverticulosis. No evidence of acute diverticulitis. 3. Nonobstructing right renal stone. 4. Indeterminate hypodensity in the left kidney. This could be further evaluated with a nonemergent renal ultrasound. 5. Significant reflux down the bilateral gonadal veins into the periuterine venous plexus. This can be seen in the setting of pelvic congestion syndrome. Fleischner guidelines were followed. Electronically signed by: Niall Phan MD 02/10/2024 10:15 PM EDT RP
--- NOTE | ~2024-02-10 | XR_ITS ---
EXAMINATION: XR CHEST CLINICAL INFORMATION: dyspnea COMPARISON: Chest radiograph 20/07/2018 TECHNIQUE: 2 views of the chest FINDINGS: Lines and tubes: None. Clear lungs. No pleural effusion. No pneumothorax. Normal cardiomediastinal silhouette. XR/XR chest 2V IMPRESSION: * Clear lungs. Electronically signed by: Yuli Bernardo MD 02/10/2024 05:40 PM EDT RP
--- NOTE | 2024-02-10 16:33 | ED.GENADULT ---
HPI - General Adult General Chief complaint: General Medical Stated complaint: sob x 3days and a rash Time Seen by Provider: 02/10/24 16:33 Source: patient, EMS and RN notes reviewed Mode of arrival: EMS Limitations: no limitations History of Present Illness ED Provider: matteo COTTON narrative: Patient is a 58-year-old female presenting to the emergency department with complaint of three days of shortness of breath, fatigue, body aches, occasional cough productive of clear/white sputum, lower abdominal pain, and diarrhea. Patient reports 3-4 episodes of diarrhea yesterday. Denies any sick contacts, states she lives alone. Temperature has been around 99. Denies hematochezia or melena. Has vomited small amount of clear fluid once or twice. Denies chest pain or palpitations. Has not taken any OTC medications for her symptoms. MD complaint: cough, dyspnea, diarrhea Onset (ago): day(s) Location: abdomen Severity: moderate Quality: aching Pain Consistency: colicky Associated symptoms: cough, fever/chills, malaise and nausea/vomiting Treatments prior to arrival: none Related Data Home Medications ?Medication ?Instructions ?Recorded ?Confirmed sertraline 100 mg tablet 100 mg PO DAILY 06/05/20 09/22/23 fluticasone propionate 110 2 puff inhalation BID 11/01/20 09/22/23 mcg/actuation HFA aerosol inhaler (Flovent HFA) omeprazole 20 mg capsule,delayed 20 mg PO BID 09/22/23 09/22/23 release rosuvastatin 40 mg tablet 40 mg PO DAILY 09/22/23 09/22/23 Previous Rx's ?Medication ?Instructions ?Recorded tetracycline 500 mg capsule 1,000 mg (2 x 500 mg) PO Q12H #56 01/20/23 caps mirtazapine 7.5 mg tablet 7.5 mg PO BEDTIME #30 tabs 03/30/23 benzonatate 100 mg capsule 100 mg PO TID PRN cough #14 caps 02/10/24 Allergies Allergy/AdvReac Type Severity Reaction Status Date / Time penicillamine [PENICILLAMINE] Allergy Intermediate HIVES Verified 02/10/24 16:49 tomato [TOMATO] Allergy Unknown UNKNOWN Verified 09/30/23 13:48 Review of Systems Review of Systems: As per HPI. Yes all other systems are reviewed and are negative Constitutional: Constitutional: Reports as per HPI [facility] Past Medical History Medical History GERD (gastroesophageal reflux disease) Uterine fibroid Smoking Right-sided Wagner's palsy Hyperlipidemia Anxiety Depression Left renal mass Fibromyalgia Surgical History History of hysteroscopy Hx of dilation and curettage History of cervical polypectomy Hx of colonoscopy H/O tubal ligation Family History Family History Sister Breast cancer Brother Heart attack Mother Pancreatic cancer Social History Social History Household Members: None Housing: Apartment Alcohol intake: never Patient Tobacco Use Status: Current everyday Tobacco user Cigarette Packs Per Day: 0.5 Cigarettes Per Day: 10.0 Years Smoked: 25 Smoked in Last 30 Days: Yes Use of substances other than those prescribed or required for medical reasons: No Advance Directives: No Advance Directives Information Provided: Yes Patient : No Physical Exam ED Vital Signs: Vital Signs - 24 hr 02/10/24 16:46 02/10/24 18:00 02/10/24 21:00 Temperature 98.3 F 98.0 F 98.2 F Pulse Rate 60 62 53 Respiratory Rate 16 18 16 Blood Pressure 125/62 124/76 122/62 Pulse Oximetry 99 99 99 Oxygen Delivery Method Room Air Room Air Room Air BMI result Body Mass Index 19.4 Vital signs have been reviewed and appear to be correct. Blood pressure normal. Heart rate normal. Respiratory rate normal. Temperature normal. Oxygen saturation normal. Const General: cooperative, healthy appearing and no acute distress Orientation/consciousness: oriented to person, oriented to place, oriented to time and patient oriented x3 Limitations: no limitations HENMT Head: Yes normocephalic and Yes atraumatic Ears: external ears normal General nose exam: Normal external nose present Face and sinus: Yes face symmetric Mouth: oropharynx normal and moist mucous membranes Throat: Yes uvula midline Eyes Pupils: Equal, round and reactive pupils present Neck Neck: Yes normal visual inspection and Yes supple Resp Effort & Inspection: normal respiratory effort and able to speak in complete sentences Auscultation: clear to auscultation bilaterally Cardio Rate: regular rate Rhythm: regular rhythm Heart sounds: S1 normal heart sound present and S2 normal heart sound present GI Palpation (GI): Soft to palpation, Tenderness to palpation present (GI) in the LLQ and in the RLQ, no guarding and No Rebound tenderness present Auscultation: normoactive bowel sounds General: Yes no CVA tenderness Back/Spine/Pelvis Back: no CVA tenderness Skin General skin exam: elasticity normal and turgor normal Neuro General: oriented to person, oriented to place, oriented to time, patient oriented x3, moves all extremities, no focal motor deficits and CN's II-XI intact bilaterally Cranial nerves: Yes Equal, round and reactive pupils present Cognition (Neuro): normal cognition Extrem General: Yes full ROM, Yes no pedal edema and Yes no calf tenderness Psych Mental Status: mental status grossly normal Affect: normal affect Thought process: Normal thought process present Medications Administered Discontinued Medications Generic Name Dose Route Start Last Admin Trade Name Freq PRN Reason Stop Dose Admin Iohexol 100 ml 02/10/24 18:32 02/10/24 18:32 Iohexol 350 Mg/Ml 100 Ml Infus..Btl IV 02/10/24 18:33 85 ml ONCE ONE Administration Medical Decision Making Medical Decision Making [facility] Narrative: Patient is a 58-year-old female presenting to the emergency department with complaint of three days of shortness of breath, fatigue, body aches, occasional cough productive of clear/white sputum, lower abdominal pain, and diarrhea. On exam patient is awake, A+Ox3, VS WNL, afebrile, normal neurological exam without focal deficits, physical exam findings as above. Given reported symptoms and physical exam findings, initial differential includes viral illness, COVID, flu, gastroenteritis, diverticulitis. Labs unremarkable. Urinalysis is without evidence of infection. X-ray chest notable for no evidence of pneumonia. CT abdomen/pelvis unremarkable. My interpretation is in agreement with the radiologist's interpretation. Viral serology negative. Patient updated on results and all questions answered. Advised patient that symptoms are likely due to viral illness which will resolve on its own with time, rest, fluids. Alternate Tylenol and ibuprofen. Follow up with primary care provider. Patient verbalized understanding of and agreement with plan. Differential Diagnosis Differential Diagnoses: The differential diagnosis associated with the presentation includes As per MDM Admission/Observation Consideration of admission/observation: Escalation of care including admission/observation considered Patient would have been admitted to the hospital had their work up had any findings where hospital admission was appropriate and their clinical presentation warranted hospital admission. Lab Data [facility] Lab Attestation statement: I reviewed the patient's lab results. As per [facility] 02/10/24 17:13 02/10/24 17:13 Labs: Lab Results 02/10/24 02/10/24 Range/Units 17:13 20:49 WBC 4.3 L (4.8-10.8) X10*3/uL RBC 3.83 L (4.20-5.50) X10*6/uL Hgb 11.8 L (12.0-16.0) g/dl Hct 35.1 L (37.0-47.0) % MCV 91.6 (80.0-98.0) fL MCH 30.8 (27.0-33.0) pg MCHC 33.6 (31.0-35.0) g/dl RDW 13.3 (11.0-16.0) % Plt Count 213 (160-400) X10*3/uL MPV 8.9 L (9.4-12.3) fL Immature Gran % (Auto) 0.0 (0.0-0.4) % Neut % (Auto) 28.6 L (45-73) % Lymph % (Auto) 55.5 H (20-40) % [place] % (Auto) 10.6 (2-11) % Eos % (Auto) 4.4 H (0-4) % Baso % (Auto) 0.9 (0-2) % Lymph # (Auto) 2.4 (1.2-4.9) X10*3/uL [place] # (Auto) 0.5 (0.1-1.2) X10*3/uL Eos # (Auto) 0.2 (0.0-0.4) X10*3/uL Baso # (Auto) 0.0 (0.0-0.2) X10*3/uL Abs Immat Gran (auto) 0.00 (0.00-0.03) X10*3/uL Absolute Neuts (auto) 1.2 L (2.0-8.3) x10*3/uL Absolute Nucleated RBC 0.000 (0.0-0.012) X10*3/uL Nucleated RBC % (auto) 0.0 (0.0-0.2) /100WBC Sodium 144 (135-145) mmol/L Potassium 4.4 (3.3-5.1) mmol/L Chloride 110 H (96-108) mmol/L Carbon Dioxide 27 (22-29) mmol/L Anion Gap 11 L (12-20) BUN 10 (9-16) mg/dL Creatinine 0.89 (0.5-1.4) mg/dL Estim Creat Clear Calc 59.2 Estimated GFR > 60 Random Glucose 84 (60-115) mg/dL Calcium 9.3 (8.4-10.2) mg/dL Magnesium 2.0 (1.6-2.6) mg/dL Total Bilirubin 0.4 (0.0-1.0) mg/dL AST 12 (5-31) U/L ALT 5 (0-31) U/L Alkaline Phosphatase 67 (39-117) U/L Total Protein 6.4 L (6.5-8.0) g/dL Albumin 3.8 (3.5-5.0) g/dL Urine Color Yellow Urine Appearance Clear Urine pH 7.5 (5.0-9.0) Ur Specific Center >= 1.030 H (1.005-1.025) Urine Protein Trace (Neg-Trace) mg/dL Urine Glucose (UA) Negative (Negative) mg/dL Urine Ketones Negative (Negative) mg/dL Urine Blood Small (1+) H (Negative) Urine Nitrite Negative (Negative) Ur Leukocyte Esterase Negative (Negative) Urine RBC 11-20 H (0-2) /HPF Urine WBC 0-5 (0-5) /HPF Ur Squamous Epith Cells 0-2 (0-2) /HPF Urine Bacteria None Seen (None Seen) Hyaline Casts 0-2 (0-2) /LPF Influenza Type A (PCR) NEGATIVE (Negative) Influenza Type B (PCR) NEGATIVE (Negative) RSV RNA Qual (PCR) NEGATIVE (Negative) SARS-CoV-2 RNA (RT-PCR) NEGATIVE (Negative) Independent Interpretation I performed an independent interpretation of an: Plain X-Ray and CT Scan Interpretation: X-ray chest notable for no evidence of pneumonia. CT abdomen/pelvis unremarkable. Radiology Impression Discussion of test interpretation with radiology: I have reviewed the radiologist's reading. Radiologist Impression: CT/CT abdomen pelvis w IV con IMPRESSION: 1. No acute process. 2. Diverticulosis. No evidence of acute diverticulitis. 3. Nonobstructing right renal stone. 4. Indeterminate hypodensity in the left kidney. This could be further evaluated with a nonemergent renal ultrasound. 5. Significant reflux down the bilateral gonadal veins into the periuterine venous plexus. This can be seen in the setting of pelvic congestion syndrome. XR/XR chest 2V IMPRESSION: * Clear lungs. External Record Review External record reviewed: Inpatient record, Office record and Outpatient record Discharge Plan Discharge Clinical Impression: Acute viral syndrome Patient Disposition: Home, Self-Care Instructions: Viral Syndrome (ED) Additional Instructions: You were evaluated in the emergency department today for shortness of breath and other symptoms. Your Covid, flu, and RSV tests were all negative. Your x-ray did not show evidence of pneumonia. Your CT scan was unremarkable. Your urine did not show evidence of infection. Your symptoms are likely related to a viral illness which will resolve on its own with time and rest. You should ensure adequate fluid intake, and can use Tylenol 650 mg or ibuprofen 600 mg every 6 hours as needed for fever or discomfort. Please follow-up with your primary care provider this week. Return to the emergency department if you develop chest pain, worsening shortness of breath, difficulty swallowing, fever 100.4? F or greater or any other concerning symptoms. Prescriptions: New benzonatate 100 mg capsule 100 mg PO TID PRN (Reason: cough) Qty: 14 0RF No Action mirtazapine 7.5 mg tablet 7.5 mg PO BEDTIME Qty: 30 3RF fluticasone propionate [Flovent HFA] 110 mcg/actuation HFA aerosol inhaler 2 puff inhalation BID sertraline 100 mg tablet 100 mg PO DAILY omeprazole 20 mg capsule,delayed release(DR/EC) 20 mg PO BID rosuvastatin 40 mg tablet 40 mg PO DAILY tetracycline 500 mg capsule 1,000 mg PO Q12H Qty: 56 0RF Stand Alone Forms: Work/School Release Print Language: Scottish
[2024-02-10 16:35] VITALS: BP 132/84; PULSE 76; O2SAT 97
[2024-02-10 16:46] VITALS: BP 125/62; PULSE 60; RESP 16; TEMP 36.8; O2SAT 99; BMI 19.4
[2024-02-10 17:18] LABS: MANUAL DIFF FLAG NO
[2024-02-10 17:19] LABS: Basophils Percent Auto 0.9 % (0-2); Eosinophils Absolute Auto 0.2 X10*3/uL (0.0-0.4); Eosinophils Percent Auto 4.4 % (0-4); Hematocrit 35.1 % (37.0-47.0); Hemoglobin 11.8 g/dl (12.0-16.0); Lymphocytes Absolute Auto 2.4 X10*3/uL (1.2-4.9); Lymphocytes Percent Auto 55.5 % (20-40); Mean Corpuscular HGB Conc 33.6 g/dl (31.0-35.0); Mean Corpuscular Hemoglobin 30.8 pg (27.0-33.0); Mean Corpuscular Volume 91.6 fL (80.0-98.0); Mean Platelet Volume 8.9 fL (9.4-12.3); Monocytes Absolute Auto 0.5 X10*3/uL (0.1-1.2); Monocytes Percent Auto 10.6 % (2-11); Neutrophils Absolute Auto 1.2 x10*3/uL (2.0-8.3); Neutrophils Percent Auto 28.6 % (45-73); Platelet Count 213 X10*3/uL (160-400); Red Blood Count 3.83 X10*6/uL (4.20-5.50); Red Cell Distribution Width 13.3 % (11.0-16.0); White Blood Count 4.3 X10*3/uL (4.8-10.8)
[2024-02-10 17:34] LABS: Alanine Aminotransferase 5 U/L (0-31); Albumin Level 3.8 g/dL (3.5-5.0); Alkaline Phosphatase 67 U/L (39-117); Anion Gap 11 (12-20); Aspartate Amino Transferase 12 U/L (5-31); Bilirubin Total 0.4 mg/dL (0.0-1.0); Blood Urea Nitrogen 10 mg/dL (9-16); Calcium 9.3 mg/dL (8.4-10.2); Carbon Dioxide 27 mmol/L (22-29); Chloride 110 mmol/L (96-108); Creatinine Clr Calc Pharmacy 59.2; Estimated Glomerular Filt Rate > 60; Glucose Random 84 mg/dL (60-115); Potassium 4.4 mmol/L (3.3-5.1); Sodium 144 mmol/L (135-145); Total Protein 6.4 g/dL (6.5-8.0)
[2024-02-10 17:57] LABS: Influenza A PCR NEGATIVE (Negative); Influenza B PCR NEGATIVE (Negative); Resp Syncy Virus RNA Qual PCR NEGATIVE (Negative); SARS COV2 PCR INHOUSE NEGATIVE (Negative)
[2024-02-10 18:00] VITALS: BP 124/76; PULSE 62; RESP 18; TEMP 36.7; O2SAT 99
--- NOTE | 2024-02-10 18:21 | PC.NURSE ---
Pt presents to ED via EMS from home, reports multiple complaints: nausea, body aches, lower abd pain/cramping, chills, general malaise for past 2-3 days. Pt is alert and oriented, lethargic. breathing even and unlabored, skin warm and dry. VSS. Denies any CP or SOB
[2024-02-10] MEDS: iohexoL 350 MG/ML 100 ML INFUS..BTL IV (18:32)
[2024-02-10 21:00] VITALS: BP 122/62; PULSE 53; RESP 16; TEMP 36.8; O2SAT 99
[2024-02-10 21:23] LABS: Appearance Urine Clear; Color Urine Yellow; Glucose Urine UA Negative (Negative); Leukocyte Esterase Urine Negative (Negative); Nitrite Urine Negative (Negative); PH 7.5 (5.0-9.0); Specific Gravity - Urine >= 1.030 (1.005-1.025); UMIC TRIGGER UACC YES; Urine Blood Small (1+) (Negative); Urine Ketones Negative (Negative); Urine Protein Trace mg/dL (Neg-Trace)
[2024-02-10 21:31] LABS: Bacteria Urine None Seen (None Seen); Hyaline Casts Urine 0-2 /LPF (0-2); Squamous Epithelial Cell Urine 0-2 /HPF (0-2); WBC Urine 0-5 /HPF (0-5)
[2024-02-10 23:58] VITALS: BP 118/59; PULSE 53; RESP 14; TEMP 36.6; O2SAT 99
[2024-02-11 00:31] VITALS: BP 118/59; PULSE 53; RESP 14; TEMP 36.6; O2SAT 99
== END 2024-02-11 00:31 | disposition home or self-care (01) ==
PROVIDERS: Registered Nurse Emergency; Emergency Provider Emergency Medicine; PCP Internal Medicine
DX: B34.9 Viral infection, unspecified (principal); R05.9 Cough, unspecified; Z03.818 Encounter for observation for suspected exposure to other biological agents ruled out; F17.210 Nicotine dependence, cigarettes, uncomplicated
CPT/HCPCS: 0241U; 36415; 71046; 74177; 80053; 81001; 81003; 83735; 85025; 99284; Q9967

== ENCOUNTER 2024-03-13 13:55 | Outpatient (REF) | payer MEDICAID, SELFPAY ==
[2024-03-13 14:07] LABS: MANUAL DIFF FLAG NO
[2024-03-13 14:44] LABS: Basophils Percent Auto 0.8 % (0-2); Eosinophils Absolute Auto 0.1 X10*3/uL (0.0-0.4); Eosinophils Percent Auto 2.1 % (0-4); Hematocrit 37.8 % (37.0-47.0); Hemoglobin 12.3 g/dl (12.0-16.0); Imm Gran Abs Auto 0.01 X10*3/uL (0.00-0.03); Imm Gran Pct Auto 0.2 % (0.0-0.4); Lymphocytes Absolute Auto 1.9 X10*3/uL (1.2-4.9); Lymphocytes Percent Auto 39.9 % (20-40); Mean Corpuscular HGB Conc 32.5 g/dl (31.0-35.0); Mean Corpuscular Hemoglobin 30.4 pg (27.0-33.0); Mean Corpuscular Volume 93.6 fL (80.0-98.0); Mean Platelet Volume 9.5 fL (9.4-12.3); Monocytes Absolute Auto 0.4 X10*3/uL (0.1-1.2); Monocytes Percent Auto 7.7 % (2-11); Neutrophils Absolute Auto 2.4 x10*3/uL (2.0-8.3); Neutrophils Percent Auto 49.3 % (45-73); Platelet Count 266 X10*3/uL (160-400); Red Blood Count 4.04 X10*6/uL (4.20-5.50); Red Cell Distribution Width 13.5 % (11.0-16.0); White Blood Count 4.8 X10*3/uL (4.8-10.8)
[2024-03-13 15:16] LABS: Alanine Aminotransferase 9 U/L (0-31); Albumin Level 4.5 g/dL (3.5-5.0); Alkaline Phosphatase 86 U/L (39-117); Anion Gap 12 (12-20); Aspartate Amino Transferase 14 U/L (5-31); Bilirubin Total 0.3 mg/dL (0.0-1.0); Blood Urea Nitrogen 6 mg/dL (9-16); Calcium 9.9 mg/dL (8.4-10.2); Carbon Dioxide 30 mmol/L (22-29); Chloride 107 mmol/L (96-108); Cholesterol 235 mg/dL (<200); Estimated Glomerular Filt Rate > 60; Glucose Random 72 mg/dL (60-115); HDL Cholesterol 58 mg/dL (>40); LDL Cholesterol Calculated 156 mg/dL (<100); Potassium 4.7 mmol/L (3.3-5.1); Sodium 144 mmol/L (135-145); Total Protein 7.9 g/dL (6.5-8.0); Triglycerides 109 mg/dL (<150)
[2024-03-13 15:30] LABS: Thyroid Stimulating Hormone 1.77 uIU/mL (0.32-4.0)
[2024-03-14 08:26] LABS: HIV AB/AG Nonreactive (Nonreactive); HIV Num 1 0.05 S/CO (0.00-0.99)
[2024-03-14 15:48] LABS: HCV RNA PCR Qn <1.18 NOT DETECTED Log IU/mL (NOT DETECTED); HCV RNA PCR Qn <15 NOT DETECTED IU/mL (NOT DETECTED)
== END 2024-03-13 13:56 | disposition home or self-care (01) ==
LOC: HO.LAB 13:55
PROVIDERS: PCP Internal Medicine; Visit Provider Internal Medicine
DX: E78.00 Pure hypercholesterolemia, unspecified (principal); F32.5 Major depressive disorder, single episode, in full remission; R21 Rash and other nonspecific skin eruption; Z72.0 Tobacco use
CPT/HCPCS: 36415; 80053; 80061; 84443; 85025; 87389; 87522

== ENCOUNTER 2024-06-23 12:15 | Outpatient (AMB) | payer MEDICAID, SELFPAY ==
--- NOTE | 2024-06-23 12:29 | A.OFFVIS_ITS ---
Vital Signs 06/23/24 12:37 Height 5 ft 6 in Weight 128 lb BMI 20.7 BP 130/70 Intake Visit Reasons: pelvic pain / vaginal odor Personnel Worker Required: No Information Interpreted: non-clinical & clinical Marketing Summer Intern: Marketing Summer Intern Present (Lisa VARGAS) Accompanied by: Self / Same As Patient Allergies penicillamine [PENICILLAMINE] Allergy (Intermediate, Verified 06/23/24 12:38) HIVES tomato [TOMATO] Allergy (Unknown, Verified 06/23/24 12:38) UNKNOWN Post menopausal: Yes HPI Comments Details: Presenting complaining of 5 day history of left-sided pelvic pain associated with malodorous vaginal discharge and urinary urgency, low-grade fever and nausea with no vomiting, no diarrhea, no vaginal bleeding no other concerns. The patient has been sexually active for the last 3 years last GC/CT were negative in 07/14 [facility] Medical History GERD (gastroesophageal reflux disease) Uterine fibroid Smoking Right-sided Wagner's palsy Hyperlipidemia Anxiety Depression Left renal mass Fibromyalgia Surgical History History of hysteroscopy Hx of dilation and curettage History of cervical polypectomy Hx of colonoscopy H/O tubal ligation Family History Sister Breast cancer Brother Heart attack Mother Pancreatic cancer Social History Household Members: None Housing: Apartment Alcohol intake: never Patient Tobacco Use Status: Current everyday Tobacco user Cigarette Packs Per Day: 0.5 Cigarettes Per Day: 10.0 Years Smoked: 25 Female Reproductive History Menstrual Age of Menarche: 11 Review of Systems Const All systems reviewed & are unremarkable except as noted in HPI and below Physical Exam Vital Signs: Last Vital Signs BP 130/70 06/23/24 12:37 BMI result Body Mass Index 20.7 General: Yes no CVA tenderness External Female Exam: normal external appearance and normal appearance of the urethra Speculum Exam - Vagina: normal appearance of the vagina, normal palpation, no lesions and no masses Speculum Exam - Cervix: normal appearance of the cervix, normal palpation, no lesions, no masses and nontender Bimanual exam- vagina & uterus: normal bimanual exam, normal palpation, uterine size normal, normal palpation, uterine shape normal, No Cervical tenderness present and non-tender Bimanual Exam- Adnexa, other: Other (Left-sided adnexal tenderness) Back/Spine/Pelvis Back: no CVA tenderness Results AMB Urinalysis Dipstick UR Leukocytes Trace Last Edit by Lisa Salinas, MANAGER ENVIRONMENTAL HEALTH on 06/23/24 12:40 UR Nitrite Negative Last Edit by Lisa Salinas, MANAGER ENVIRONMENTAL HEALTH on 06/23/24 12:40 UR Urobilinogen Normal Last Edit by Lisa Salinas, MANAGER ENVIRONMENTAL HEALTH on 06/23/24 12:40 UR Protein Trace Last Edit by Lisa Salinas, MANAGER ENVIRONMENTAL HEALTH on 06/23/24 12:40 UR Ph 6.0 Last Edit by Lisa Salinas, MANAGER ENVIRONMENTAL HEALTH on 06/23/24 12:40 UR Blood Large Last Edit by Lisa Salinas, MANAGER ENVIRONMENTAL HEALTH on 06/23/24 12:40 UR Specific Sebastian 1.015 Last Edit by Lisa Salinas, MANAGER ENVIRONMENTAL HEALTH on 06/23/24 12:40 UR Ketone Trace Last Edit by Lisa Salinas, MANAGER ENVIRONMENTAL HEALTH on 06/23/24 12:40 UR Bilirubin Small Last Edit by Lisa Salinas, MANAGER ENVIRONMENTAL HEALTH on 06/23/24 12:40 UR Glucose Negative Last Edit by Lisa Salinas, MANAGER ENVIRONMENTAL HEALTH on 06/23/24 12:40 Results Reviewed Results Reviewed: Laboratory Last Values Urine pH (Clinic) 6.0 06/23/24 12:38 Specific Sebastian (Clinic) 1.015 06/23/24 12:38 Ur Protein (Clinic) Trace 06/23/24 12:38 Ur Ketones (Clinic) Trace 06/23/24 12:38 Urine Blood (Clinic) Large 06/23/24 12:38 Urine Nitrite Negative 06/23/24 12:38 Urine Bilirubin (Clinic) Small 06/23/24 12:38 Urobilinogen (Clinic) Normal 06/23/24 12:38 Leukocyte Esterase (Clinic) Trace 06/23/24 12:38 Urine Glucose (Clinic) Negative 06/23/24 12:38 Assessment & Plan Assessment & Plan (1) Pelvic pain: Code(s): R10.2 - Pelvic and perineal pain Category: Medical Plan: Urine dip done in the office showed microscopic hematuria, urine culture sent. GC and chlamydia with BV panel taken Discussed with the patient the differential diagnosis of pelvic pain including but not limited to adnexal, uterine masses, pelvic infections (PID), GI the (Irritable bowel syndrome, diverticulitis, others), musculoskeletal, myofascial pain abdominal wall and others causes. Will send the patient to the emergency room for further evaluation including CT scan of abdomen and pelvis and possible ultrasound . Undetected emergency room discussed the case with the ER provider (2) Microscopic hematuria: Code(s): R31.29 - Other microscopic hematuria Category: Medical Plan: Urine dip showed microscopic hematuria, urine culture sent. Will repeat urine dip in 2 weeks. Discussed with the patient the possible causes of microscopic hematuria including but not limited to: interstitial cystitis, polyps, stones, masses, urethral inflammatory processes and others. If Urine Culture is negative and repeat urine dip in 2 weeks shows persistent microscopic hematuria, will proceed with CT abdomen/pelvis and urology referral. Instructions given the patient to schedule a 2 week urine dip follow-up appointment. All questions answered and the patient verbalized understanding. (3) Vaginal Discharge: Code(s): N89.8 - Other specified noninflammatory disorders of vagina Category: Medical Plan: GC/CT with BV panel collected, will check the results and treat accordingly. All questions answered, the patient verbalized understanding Orders: Orders Urine Culture Today R10.2 - Pelvic and perineal pain, R31.29 - Other microscopic hematuria AMB Urinalysis Dipstick Today R31.29 - Other microscopic hematuria Bacterial Vaginosis Panel Today R10.2 - Pelvic and perineal pain CT NG by PCR Today R10.2 - Pelvic and perineal pain Coding Level of Care Code Est Pt Level 3 (21824) Diagnoses Pelvic pain R10.2 Microscopic hematuria R31.29 Vaginal Discharge N89.8
[2024-06-23 12:37] VITALS: BP 130/70; BMI 20.7
== END 2024-06-23 13:31 | disposition home or self-care (01) ==
LOC: HO.HWS 12:15
PROVIDERS: PCP Internal Medicine; Visit Provider Obstetrics & Gynecology
DX: R10.2 Pelvic and perineal pain (principal); R31.29 Other microscopic hematuria; N89.8 Other specified noninflammatory disorders of vagina
CPT/HCPCS: 99213

== ENCOUNTER 2024-06-23 12:15 | Outpatient (REF) | payer MEDICAID, SELFPAY ==
[2024-06-23 17:11] LABS: Bacterial Vaginosis PCR NEGATIVE (Negative); Candida Group PCR NOT DETECTED (Not Detect); Candida glab krusei PCR NOT DETECTED (Not Detect); Trichomonas vaginalis PCR NOT DETECTED (Not Detect)
[2024-06-23 17:41] LABS: CT PCR NOT DETECTED (Not Detect.); NG PCR NOT DETECTED (Not Detect.)
== END 2024-06-23 12:16 | disposition home or self-care (01) ==
LOC: HO.LNP 12:15
PROVIDERS: PCP Internal Medicine; Visit Provider Obstetrics & Gynecology
DX: R31.29 Other microscopic hematuria (principal); R10.2 Pelvic and perineal pain; N89.8 Other specified noninflammatory disorders of vagina
CPT/HCPCS: 81002; 81515; 87086; 87491; 87591; 99212

== ENCOUNTER 2024-06-23 13:19 | Outpatient (REF) | payer MEDICAID, SELFPAY | END 2024-06-23 13:20 | disposition home or self-care (01) | LOC: HO.LAB 13:19 | PROVIDERS: Visit Provider Obstetrics & Gynecology | DX: Z13.89 Encounter for screening for other disorder (principal) ==

== ENCOUNTER 2024-06-23 13:32 | Emergency (ER) | payer MEDICAID, SELFPAY ==
--- NOTE | ~2024-06-23 | CT_ITS ---
EXAMINATION: CT ABDOMEN AND PELVIS WITHOUT CONTRAST CLINICAL INFORMATION: Left flank pain COMPARISON: CT abdomen and pelvis 02/10/2024 TECHNIQUE: Multidetector volumetric imaging was performed from the superior aspect of the liver through the pubic symphysis. Sagittal and coronal reformatted images were obtained on the technologist's workstation. This CT examination was performed using dose optimization techniques as appropriate, variously including the following: *Automated exposure control *Adjustment of mA and/or kV according to patient size (this includes techniques or standardized protocols for targeted exams where dose is matched to indication/reason for exam; i.e. extremities or head) *Use of iterative reconstruction technique FINDINGS: LUNG BASES: The visualized lung bases are unremarkable. Heart size is normal. No pericardial effusion seen. LIVER, GALLBLADDER, AND BILIARY TREE: The liver is enlarged in size measuring 19 cm. It has normal contour and attenuation. No focal hepatic lesion or biliary ductal dilatation is present. The gallbladder is unremarkable with no evidence of radiopaque gallstones, gallbladder wall thickening, or obvious pericholecystic inflammatory changes. PANCREAS: Unremarkable. SPLEEN: Unremarkable. ADRENAL GLANDS: Unremarkable. KIDNEYS AND URETERS: The kidneys are normal in size, shape, and attenuation. Is a nonobstructive 1 mm radiopaque calculi mid pole right kidney. No additional radiopaque calculi seen. No caliectasis or hydronephrosis. No perinephric stranding. BLADDER: Unremarkable. GASTROINTESTINAL TRACT: There is large amount of stool and gas in the colon without distention. Scattered diverticuli are seen in colon. The small bowel loops are normal caliber. Appendix is not seen well. There is no free air or free fluid. No inflammatory process seen. ABDOMINAL WALL: No significant hernia is appreciated. LYMPH NODES: Normal. VASCULAR: Unremarkable. PELVIC VISCERA: The uterus is anteverted and appears unremarkable. No adnexal mass seen. There are multiple phleboliths in the left pelvis. OSSEOUS STRUCTURES: There is bilateral facet joint arthropathy L3-4 and L4-5 disc level. No aggressive lytic or sclerotic process seen CT/CT abdomen pelvis wo IV con IMPRESSION: 2 mm nonobstructive radiopaque calculi mid pole right kidney unchanged last CT exam 02/08/2024. There is no hydronephrosis on either side. Moderate to significant constipation without signs of obstruction. Mild colonic diverticulosis Fleischner guidelines were followed. Electronically signed by: Joao Rush MD 06/23/2024 04:32 PM EST
[2024-06-23 14:10] VITALS: BP 130/77; PULSE 64; RESP 18; TEMP 35.9; O2SAT 100; BMI 20.7
--- NOTE | 2024-06-23 14:10 | ED.GENADULT ---
HPI - General Adult General Chief complaint: Abdominal Pain Stated complaint: Abd pain sent for ct scan Time Seen by Provider: 06/23/24 18:52 Source: patient, RN notes reviewed and old records reviewed Mode of arrival: ambulatory Limitations: no limitations History of Present Illness ED Provider: Travis [facility] narrative: Patient is 58-year old female presenting with complaint of left flank pain radiating to groin x [address] Tang this am who did a pelvic exam and was referred her here. She reports foul smelling vaginal discharge. Denies nausea, vomiting, diarrhea. Denies constipation but states has not had BM today. complaint: flank pain Onset (ago): day(s) Location: left Radiation: other (groin) Related Data Home Medications ?Medication ?Instructions ?Recorded ?Confirmed sertraline 100 mg tablet 100 mg PO DAILY 06/05/20 09/22/23 fluticasone propionate 110 2 puff inhalation BID 11/01/20 09/22/23 mcg/actuation HFA aerosol inhaler (Flovent HFA) omeprazole 20 mg capsule,delayed 20 mg PO BID 09/22/23 09/22/23 release rosuvastatin 40 mg tablet 40 mg PO DAILY 09/22/23 09/22/23 Previous Rx's ?Medication ?Instructions ?Recorded tetracycline 500 mg capsule 1,000 mg (2 x 500 mg) PO Q12H #56 01/20/23 caps mirtazapine 7.5 mg tablet 7.5 mg PO BEDTIME #30 tabs 03/30/23 benzonatate 100 mg capsule 100 mg PO TID PRN cough #14 caps 02/10/24 polyethylene glycol 3350 17 17 g PO BID 7 days #238 grams 06/23/24 gram/dose oral powder (Miralax) sennosides 8.6 mg tablet 8.6 mg PO BID PRN constipation #14 06/23/24 tabs Allergies Allergy/AdvReac Type Severity Reaction Status Date / Time penicillamine [PENICILLAMINE] Allergy Intermediate HIVES Verified 06/23/24 14:12 tomato [TOMATO] Allergy Unknown UNKNOWN Verified 06/23/24 14:12 Review of Systems Review of Systems: As per HPI Yes all other systems are reviewed and are negative Constitutional: Constitutional: Reports as per HPI PMFSH Past Medical History Medical History GERD (gastroesophageal reflux disease) Uterine fibroid Smoking Right-sided Wagner's palsy Hyperlipidemia Anxiety Depression Left renal mass Fibromyalgia Surgical History History of hysteroscopy Hx of dilation and curettage History of cervical polypectomy Hx of colonoscopy H/O tubal ligation Family History Family History Sister Breast cancer Brother Heart attack Mother Pancreatic cancer Social History Social History Household Members: None Housing: Apartment Alcohol intake: never Patient Tobacco Use Status: Current everyday Tobacco user Cigarette Packs Per Day: 0.5 Cigarettes Per Day: 10.0 Years Smoked: 25 Do you have a plan to hurt others: No Plan Physical Exam ED Vital Signs: Vital Signs - 24 hr 06/23/24 14:10 06/23/24 17:38 Temperature 96.7 F L 96.0 F L Pulse Rate 64 77 Respiratory Rate 18 18 Blood Pressure 130/77 123/80 Pulse Oximetry 100 100 Oxygen Delivery Method Room Air Room Air BMI result Body Mass Index 20.7 Vital signs have been reviewed and appear to be correct. Blood pressure normal. Heart rate normal. Respiratory rate normal. Temperature normal. Oxygen saturation normal. Const General: cooperative, healthy appearing and no acute distress Orientation/consciousness: oriented to person, oriented to place, oriented to time and patient oriented x3 Limitations: no limitations HENMT Head: Yes normocephalic and Yes atraumatic Ears: external ears normal General nose exam: Normal external nose present Face and sinus: Yes face symmetric Mouth: oropharynx normal and moist mucous membranes Throat: Yes uvula midline Eyes Pupils: Equal, round and reactive pupils present Neck Neck: Yes normal visual inspection and Yes supple Resp Effort & Inspection: normal respiratory effort and able to speak in complete sentences Auscultation: clear to auscultation bilaterally Cardio Rate: regular rate Rhythm: regular rhythm Heart sounds: S1 normal heart sound present and S2 normal heart sound present GI Palpation (GI): Soft to palpation and nontender Auscultation: normoactive bowel sounds General: Yes no CVA tenderness Back/Spine/Pelvis Back: no CVA tenderness Skin General skin exam: elasticity normal and turgor normal Neuro General: oriented to person, oriented to place, oriented to time, patient oriented x3, moves all extremities, no focal motor deficits and CN's II-XI intact bilaterally Cranial nerves: Yes Equal, round and reactive pupils present Cognition (Neuro): normal cognition Extrem General: Yes full ROM, Yes no pedal edema and Yes no calf tenderness Psych Mental Status: mental status grossly normal Affect: normal affect Thought process: Normal thought process present Course Course Course Narrative: This is a rapid medical exam performed by Omi Robles NP: Additional HPI, ROS, PE not included below will be deferred to primary provider. Patient is 58-year old female presenting with complaint of left flank pain radiating to groin x 4 days. Saw ANODE CREW SUPERVISOR this am who referred her here. Plan: labs, UA, CT Medical Decision Making Medical Decision Making [facility] Narrative: Patient is 58-year old female presenting with complaint of left flank pain radiating to groin x 4 days. On exam patient is awake, A+Ox3, VS WNL, afebrile, normal neurological exam without focal deficits, physical exam findings as above. Given reported symptoms and physical exam findings, initial differential includes but is not limited to renal calculi, UTI/pyelonephritis, diverticulitis. Labs unremarkable, no leukocytosis, no evidence of DONELL. CT notable for constipation. My interpretation is in agreement with the radiologist's interpretation. Pelvic exam deferred as this was done at Dr. Tang's office earlier today. Results discussed with patient and all questions answered. Will send prescriptions for sinusitis and MiraLax. Instructed patient to follow up with PCP and Dr. Tang. Return precautions discussed. Patient verbalized understanding of and agreement with plan. Differential Diagnosis Differential Diagnoses: The differential diagnosis associated with the presentation includes As per [facility] Admission/Observation Consideration of admission/observation: Escalation of care including admission/observation considered Patient would have been admitted to the hospital had their work up had any findings where hospital admission was appropriate and their clinical presentation warranted hospital admission. Lab Data [facility] Lab Attestation statement: I reviewed the patient's lab results. as per [facility] 06/23/24 17:13 06/23/24 17:13 Labs: Lab Results 06/23/24 06/23/24 Range/Units 14:26 17:13 WBC 4.6 L (4.8-10.8) X10*3/uL RBC 4.13 L (4.20-5.50) X10*6/uL Hgb 12.4 (12.0-16.0) g/dl Hct 38.1 (37.0-47.0) % MCV 92.3 (80.0-98.0) fL MCH 30.0 (27.0-33.0) pg MCHC 32.5 (31.0-35.0) g/dl RDW 13.1 (11.0-16.0) % Plt Count 222 (160-400) X10*3/uL MPV 8.9 L (9.4-12.3) fL Immature Gran % (Auto) 0.0 (0.0-0.4) % Neut % (Auto) 34.6 L (45-73) % Lymph % (Auto) 52.6 H (20-40) % Terrell % (Auto) 9.3 (2-11) % Eos % (Auto) 2.4 (0-4) % Baso % (Auto) 1.1 (0-2) % Lymph # (Auto) 2.4 (1.2-4.9) X10*3/uL Terrell # (Auto) 0.4 (0.1-1.2) X10*3/uL Eos # (Auto) 0.1 (0.0-0.4) X10*3/uL Baso # (Auto) 0.1 (0.0-0.2) X10*3/uL Abs Immat Gran (auto) 0.00 (0.00-0.03) X10*3/uL Absolute Neuts (auto) 1.6 L (2.0-8.3) x10*3/uL Absolute Nucleated RBC 0.000 (0.0-0.012) X10*3/uL Nucleated RBC % (auto) 0.0 (0.0-0.2) /100WBC Sodium 143 (135-145) mmol/L Potassium 3.7 D (3.3-5.1) mmol/L Chloride 110 H (96-108) mmol/L Carbon Dioxide 27 (22-29) mmol/L Anion Gap 10 L (12-20) BUN 8 L (9-16) mg/dL Creatinine 0.75 (0.5-1.4) mg/dL Estim Creat Clear Calc 75.1 Estimated GFR > 60 Random Glucose 84 (60-115) mg/dL Calcium 9.0 D (8.4-10.2) mg/dL Total Bilirubin 0.4 (0.0-1.0) mg/dL AST 16 (5-31) U/L ALT 8 (0-31) U/L Alkaline Phosphatase 63 (39-117) U/L Total Protein 7.1 (6.5-8.0) g/dL Albumin 4.3 (3.5-5.0) g/dL Beta HCG, Quant < 2 mIU/mL Urine Color Yellow Urine Appearance Clear Urine pH 6.0 (5.0-9.0) Ur Specific Roscoe 1.020 (1.005-1.025) Urine Protein Negative (Neg-Trace) mg/dL Urine Glucose (UA) Negative (Negative) mg/dL Urine Ketones Negative (Negative) mg/dL Urine Blood Moderate (2+) H (Negative) Urine Nitrite Negative (Negative) Ur Leukocyte Esterase Negative (Negative) Urine RBC 3-5 H (0-2) /HPF Urine WBC 0-5 (0-5) /HPF Ur Squamous Epith Cells 0-2 (0-2) /HPF Calcium Oxalate Crystal Present Urine Bacteria None Seen (None Seen) Hyaline Casts 0-2 (0-2) /LPF Independent Interpretation I performed an independent interpretation of an: CT Scan Interpretation: Constipation noted on CT, no diverticulitis, no obstructing calculi or hydronephrosis. Radiology Impression Discussion of test interpretation with radiology: I have reviewed the radiologist's reading. Radiologist Impression: CT/CT abdomen pelvis wo IV con IMPRESSION: 2 mm nonobstructive radiopaque calculi mid pole right kidney unchanged last CT exam 02/08/2024. There is no hydronephrosis on either side. Moderate to significant constipation without signs of obstruction. Mild colonic diverticulosis External Record Review External record reviewed: Inpatient record, Office record and Outpatient record Prescription Management I considered prescription management with: Other Discharge Plan Discharge Clinical Impression: Constipation Patient Disposition: Home, Self-Care Instructions: Constipation (ED), High Fiber Diet (ED), Acute Abdominal Pain (DC) Additional Instructions: You were evaluated in the emergency department today for abdominal pain. Your CT scan showed significant stool in your colon. You are being prescribed medications to help you have a bowel movement. Take these as prescribed. Follow up with your primary care provider and Dr. Tang. Return to the emergency department if you develop worsening pain, fever, persistent vomiting, blood in your vomit or stool, or any other new or concerning symptoms. Prescriptions: New polyethylene glycol 3350 [Miralax] 17 gram/dose powder 17 g PO BID 7 Days Qty: 238 0RF sennosides 8.6 mg tablet 8.6 mg PO BID PRN (Reason: constipation) Qty: 14 0RF No Action mirtazapine 7.5 mg tablet 7.5 mg PO BEDTIME Qty: 30 3RF fluticasone propionate [Flovent HFA] 110 mcg/actuation HFA aerosol inhaler 2 puff inhalation BID benzonatate 100 mg capsule 100 mg PO TID PRN (Reason: cough) Qty: 14 0RF sertraline 100 mg tablet 100 mg PO DAILY omeprazole 20 mg capsule,delayed release(DR/EC) 20 mg PO BID rosuvastatin 40 mg tablet 40 mg PO DAILY tetracycline 500 mg capsule 1,000 mg PO Q12H Qty: 56 0RF Print Language: Romansh
[2024-06-23 15:26] LABS: Appearance Urine Clear; Color Urine Yellow; Glucose Urine UA Negative (Negative); Leukocyte Esterase Urine Negative (Negative); Nitrite Urine Negative (Negative); UMIC TRIGGER UACC YES; Urine Blood Moderate (2+) (Negative); Urine Ketones Negative (Negative); Urine Protein Negative (Neg-Trace)
[2024-06-23 15:37] LABS: Bacteria Urine None Seen (None Seen); Calcium Oxalate Crystals Urine Present; Hyaline Casts Urine 0-2 /LPF (0-2); Squamous Epithelial Cell Urine 0-2 /HPF (0-2); WBC Urine 0-5 /HPF (0-5)
[2024-06-23 17:19] LABS: MANUAL DIFF FLAG NO
[2024-06-23 17:21] LABS: Basophils Absolute Auto 0.1 X10*3/uL (0.0-0.2); Basophils Percent Auto 1.1 % (0-2); Eosinophils Absolute Auto 0.1 X10*3/uL (0.0-0.4); Eosinophils Percent Auto 2.4 % (0-4); Hematocrit 38.1 % (37.0-47.0); Hemoglobin 12.4 g/dl (12.0-16.0); Lymphocytes Absolute Auto 2.4 X10*3/uL (1.2-4.9); Lymphocytes Percent Auto 52.6 % (20-40); Mean Corpuscular HGB Conc 32.5 g/dl (31.0-35.0); Mean Corpuscular Volume 92.3 fL (80.0-98.0); Mean Platelet Volume 8.9 fL (9.4-12.3); Monocytes Absolute Auto 0.4 X10*3/uL (0.1-1.2); Monocytes Percent Auto 9.3 % (2-11); Neutrophils Absolute Auto 1.6 x10*3/uL (2.0-8.3); Neutrophils Percent Auto 34.6 % (45-73); Platelet Count 222 X10*3/uL (160-400); Red Blood Count 4.13 X10*6/uL (4.20-5.50); Red Cell Distribution Width 13.1 % (11.0-16.0); White Blood Count 4.6 X10*3/uL (4.8-10.8)
[2024-06-23 17:38] VITALS: BP 123/80; PULSE 77; RESP 18; TEMP 35.6; O2SAT 100
[2024-06-23 17:45] LABS: Alanine Aminotransferase 8 U/L (0-31); Albumin Level 4.3 g/dL (3.5-5.0); Alkaline Phosphatase 63 U/L (39-117); Anion Gap 10 (12-20); Aspartate Amino Transferase 16 U/L (5-31); Bilirubin Total 0.4 mg/dL (0.0-1.0); Blood Urea Nitrogen 8 mg/dL (9-16); Carbon Dioxide 27 mmol/L (22-29); Chloride 110 mmol/L (96-108); Creatinine Clr Calc Pharmacy 75.1; Estimated Glomerular Filt Rate > 60; Glucose Random 84 mg/dL (60-115); Potassium 3.7 mmol/L (3.3-5.1); Sodium 143 mmol/L (135-145); Total Protein 7.1 g/dL (6.5-8.0)
[2024-06-23 17:46] LABS: HCG Quantitative < 2 mIU/mL
--- NOTE | 2024-06-23 19:18 | PC.NURSE ---
attempted to dolly from [place], pt left without papers at this time.
[2024-06-23 19:19] VITALS: BP 123/80; PULSE 77; RESP 18; TEMP 35.6; O2SAT 100
== END 2024-06-23 20:50 | disposition home or self-care (01) ==
LOC: HO.ED 19:21
PROVIDERS: Registered Nurse Emergency; Emergency Provider Emergency Medicine; PCP Internal Medicine
DX: K59.00 Constipation, unspecified (principal); R10.9 Unspecified abdominal pain; F17.210 Nicotine dependence, cigarettes, uncomplicated; Z79.899 Other long term (current) drug therapy
CPT/HCPCS: 36415; 74176; 80053; 81001; 84702; 85025; 99282; 99284

== ENCOUNTER → 2024-06-23 14:11 | Outpatient (BNV) | payer MEDICAID, SELFPAY | PROVIDERS: PCP Internal Medicine; Visit Provider Radiology Diagnostic Radiology | DX: R10.9 Unspecified abdominal pain (principal) | CPT/HCPCS: 74176 ==

== ENCOUNTER 2024-06-24 15:21 | Emergency (ER) | payer MEDICAID, SELFPAY ==
--- NOTE | ~2024-06-24 | US_ITS ---
CLINICAL HISTORY: lower abd pain, rad back, pelvic d c US female pelvis LMP:N/a, postmenopausal. Technique: Ultrasound examination of the pelvis was performed with transabdominal and transvaginal technique for better visualization of the ovaries. Comparison: 06/07/23 Findings: Anteverted uterus measuring 6.3 x 3.1 x 3.9cm with a small fibroid measuring 0.8 x 0.6 x 0.5 cm. Normal endometrial thickness of 0.3cm. There is trace fluid within the endometrial canal. The right ovary is normal in size, measuring 2.7 x 1.3 x 1.6cm, volume of 2.9mL. There is normal echogenicity and vascularity. No lesions. The left ovary is normal in size, measuring 2.3 x 2.1 x 1.8cm, volume of 4.6mL. There is normal echogenicity and vascularity. No lesions. No free fluid. Impression: No acute findings. Small uterine fibroid. This document has been electronically signed by: Radha Gibbons MD on 06/24/2024 17:58:21
[2024-06-24 15:35] VITALS: BP 125/74; PULSE 68; RESP 16; TEMP 36.6; O2SAT 100; BMI 20.7
--- NOTE | 2024-06-24 15:40 | ED_ITS ---
HPI - Abdominal Pain General Chief Complaint: Abdominal Pain Stated Complaint: abd,back pain seen here 1/3 Time Seen by Provider: 06/24/24 16:52 History of Present Illness HPI narrative: Patient is a 58-year-old female with a history of having abdominal pain yesterday. Was seen by OBGYN had a pelvic exam done. Scraping for BV, gonorrhea chlamydia was sent. Patient came to the ED yesterday had a CT scan of the abdomen done. The CT scan showed no evidence of obstruction no evidence for abscess no evidence for perforation there is a kidney stone in the left kidney. Presented back to the emergency department for lower abdominal pain again. There is no fever no chills. There is no vomiting. Patient claims she had a large bowel movement since she was discharged. Related Data Home Medications ?Medication ?Instructions ?Recorded ?Confirmed sertraline 100 mg tablet 100 mg PO DAILY 06/05/20 09/22/23 fluticasone propionate 110 2 puff inhalation BID 11/01/20 09/22/23 mcg/actuation HFA aerosol inhaler (Flovent HFA) omeprazole 20 mg capsule,delayed 20 mg PO BID 09/22/23 09/22/23 release rosuvastatin 40 mg tablet 40 mg PO DAILY 09/22/23 09/22/23 Previous Rx's ?Medication ?Instructions ?Recorded tetracycline 500 mg capsule 1,000 mg (2 x 500 mg) PO Q12H #56 01/20/23 caps mirtazapine 7.5 mg tablet 7.5 mg PO BEDTIME #30 tabs 03/30/23 benzonatate 100 mg capsule 100 mg PO TID PRN cough #14 caps 02/10/24 polyethylene glycol 3350 17 17 g PO BID 7 days #238 grams 06/23/24 gram/dose oral powder (Miralax) sennosides 8.6 mg tablet 8.6 mg PO BID PRN constipation #14 06/23/24 tabs metronidazole 500 mg tablet 500 mg PO BID #14 tabs 06/24/24 Allergies Allergy/AdvReac Type Severity Reaction Status Date / Time penicillamine [PENICILLAMINE] Allergy Intermediate HIVES Verified 06/24/24 15:36 tomato [TOMATO] Allergy Unknown UNKNOWN Verified 06/24/24 15:36 Review of Systems Review of Systems Positive lower abdominal pain Yes all other systems are reviewed and are negative PMFSH Past Medical History Attestation statement: The following information was validated with the patient. Medical History GERD (gastroesophageal reflux disease) Uterine fibroid Smoking Right-sided Wagner's palsy Hyperlipidemia Anxiety Depression Left renal mass Fibromyalgia Surgical History History of hysteroscopy Hx of dilation and curettage History of cervical polypectomy Hx of colonoscopy H/O tubal ligation Family History Family History Sister Breast cancer Brother Heart attack Mother Pancreatic cancer Social History Social History Household Members: None Housing: Apartment Alcohol intake: never Patient Tobacco Use Status: Current everyday Tobacco user Cigarette Packs Per Day: 0.5 Cigarettes Per Day: 10.0 Years Smoked: 25 Smoked in Last 30 Days: No Use of substances other than those prescribed or required for medical reasons: No Advance Directives: No Advance Directives Information Provided: No Do you have a plan to hurt others: No Plan Patient : No Physical Exam ED Vital Signs: Vital Signs - 24 hr 06/24/24 15:35 Temperature 97.9 F Pulse Rate 68 Respiratory Rate 16 Blood Pressure 125/74 Pulse Oximetry 100 Oxygen Delivery Method Room Air BMI result Body Mass Index 20.7 Appearance: Alert. Oriented X3. No acute distress. Eyes: Pupils equal, round and reactive to light. ENT: Pharynx normal. Neck: Normal inspection. Neck supple. No lymph nodes noted. No crepitus CVS: Normal heart rate and rhythm. Pulses normal. Normal S1 and S2 Respiratory: No respiratory distress. Breath sounds normal. No Wheezing. No rales Abdomen: Soft and nontender. No rigidity. No distention. good BS x4 Skin: Skin warm and dry. Normal skin color. Normal skin turgor. Extremities: No lower extremity edema. Neurovascular intact to all extremities. No Lacerations. No Rash Neuro: Oriented X 3. No motor deficit. No sensory deficit. Moving all extermities. No slurred speech Course Course Course Narrative: This is a Rapid Medical Exam performed in triage by Agnieszka Armas PA-C. Full HPI, ROS and PE to be performed by primary ED provider. 58yo F w/PMHx microscopic hematuria presenting to the ED c/o lower abdominal pain radiating to back & vaginal discharge. Was seen in our ED & Dr. Tang's office yesterday, had pelvic exam in office including swabs & had labs/CT in the ED. PE: Nontoxic appearing, ambulating with steady gait Plan: Repeat labs/UA, pelvic US Medical Decision Making Medical Decision Making [facility] Narrative: I reviewed patient's previous lab including labs from outpatient OBGYN visit. GC chlamydia and BV swabs were all negative. Patient's CT scan from yesterday was reviewed. There is no evidence for obstruction no evidence for abscess no evidence for perforation there is a kidney stone only in the kidney. There is no evidence for urinary tract infection today. Patient's white count is normal hemoglobin is 12. Transvaginal ultrasound of the lower abdomen was done. It did not show any evidence for torsion. It did show a fibroid uterus. Likely the cause of patient's pain. Will have patient follow-up on an outpatient basis. In stable condition. Findings: Anteverted uterus measuring 6.3 x 3.1 x 3.9cm with a small fibroid measuring 0.8 x 0.6 x 0.5 cm. Normal endometrial thickness of 0.3cm. There is trace fluid within the endometrial canal. The right ovary is normal in size, measuring 2.7 x 1.3 x 1.6cm, volume of 2.9mL. There is normal echogenicity and vascularity. No lesions. The left ovary is normal in size, measuring 2.3 x 2.1 x 1.8cm, volume of 4.6mL. There is normal echogenicity and vascularity. No lesions. No free fluid. Patient is previous scraping from OB office with all negative. No evidence for BV. No evidence for gonorrhea chlamydia. However patient insists that she has bacteria vaginosis and wants Flagyl feels her symptoms very similar to previous bouts. A course of Flagyl was prescribed. Patient to be discharged home. Differential Diagnosis Differential Diagnoses: The differential diagnosis associated with the presentation includes Fibroid uterus, ovarian torsion, obstruction, abscess, diverticulitis, kidney stone Admission/Observation Consideration of admission/observation: Escalation of care including admission/observation considered Lab Data [facility] Lab Attestation statement: I reviewed the patient's lab results. 06/24/24 16:20 06/24/24 16:20 Labs: Lab Results 06/24/24 Range/Units 16:20 WBC 4.9 (4.8-10.8) X10*3/uL RBC 4.16 L (4.20-5.50) X10*6/uL Hgb 12.6 (12.0-16.0) g/dl Hct 38.2 (37.0-47.0) % MCV 91.8 (80.0-98.0) fL MCH 30.3 (27.0-33.0) pg MCHC 33.0 (31.0-35.0) g/dl RDW 13.1 (11.0-16.0) % Plt Count 232 (160-400) X10*3/uL MPV 8.9 L (9.4-12.3) fL Immature Gran % (Auto) 0.2 (0.0-0.4) % Neut % (Auto) 37.2 L (45-73) % Lymph % (Auto) 46.8 H (20-40) % [place] % (Auto) 12.3 H (2-11) % Eos % (Auto) 2.9 (0-4) % Baso % (Auto) 0.6 (0-2) % Lymph # (Auto) 2.3 (1.2-4.9) X10*3/uL [place] # (Auto) 0.6 (0.1-1.2) X10*3/uL Eos # (Auto) 0.1 (0.0-0.4) X10*3/uL Baso # (Auto) 0.0 (0.0-0.2) X10*3/uL Abs Immat Gran (auto) 0.01 (0.00-0.03) X10*3/uL Absolute Neuts (auto) 1.8 L (2.0-8.3) x10*3/uL Absolute Nucleated RBC 0.000 (0.0-0.012) X10*3/uL Nucleated RBC % (auto) 0.0 (0.0-0.2) /100WBC PT 11.8 (10.9-12.4) SEC INR 1.0 (0.9-1.1) Sodium 144 (135-145) mmol/L Potassium 4.2 (3.3-5.1) mmol/L Chloride 113 H (96-108) mmol/L Carbon Dioxide 24 (22-29) mmol/L Anion Gap 11 L (12-20) BUN 9 (9-16) mg/dL Creatinine 0.72 (0.5-1.4) mg/dL Estim Creat Clear Calc 78.2 Estimated GFR > 60 Random Glucose 67 (60-115) mg/dL Calcium 9.4 (8.4-10.2) mg/dL Magnesium 2.0 (1.6-2.6) mg/dL Total Bilirubin 0.4 (0.0-1.0) mg/dL Direct Bilirubin 0.1 (0.0-0.5) mg/dL AST 17 (5-31) U/L ALT 9 (0-31) U/L Alkaline Phosphatase 66 (39-117) U/L Total Protein 7.5 (6.5-8.0) g/dL Albumin 4.3 (3.5-5.0) g/dL Lipase 23 (8-78) U/L Urine Color Yellow Urine Appearance Cloudy Urine pH 8.0 (5.0-9.0) Ur Specific [place] 1.025 (1.005-1.025) Urine Protein Negative (Neg-Trace) mg/dL Urine Glucose (UA) Negative (Negative) mg/dL Urine Ketones Negative (Negative) mg/dL Urine Blood Trace H (Negative) Urine Nitrite Negative (Negative) Ur Leukocyte Esterase Trace H (Negative) Urine RBC >20 H (0-2) /HPF Urine WBC 6-10 H (0-5) /HPF Ur Squamous Epith Cells 6-10 (0-2) /HPF Urine Bacteria Trace (None Seen) Hyaline Casts 0-2 (0-2) /LPF Urine Test NEGATIVE (NEGATIVE) Radiology Impression Discussion of test interpretation with radiology: I have reviewed the radiologist's reading. External Record Review External record reviewed: Inpatient record and Office record Discharge Plan Discharge Clinical Impression: Abdominal pain Patient Disposition: Home, Self-Care Instructions: Abdominal Pain (ED) Prescriptions: New metronidazole 500 mg tablet 500 mg PO BID Qty: 14 0RF No Action mirtazapine 7.5 mg tablet 7.5 mg PO BEDTIME Qty: 30 3RF fluticasone propionate [Flovent HFA] 110 mcg/actuation HFA aerosol inhaler 2 puff inhalation BID benzonatate 100 mg capsule 100 mg PO TID PRN (Reason: cough) Qty: 14 0RF polyethylene glycol 3350 [Miralax] 17 gram/dose powder 17 g PO BID 7 Days Qty: 238 0RF sennosides 8.6 mg tablet 8.6 mg PO BID PRN (Reason: constipation) Qty: 14 0RF sertraline 100 mg tablet 100 mg PO DAILY omeprazole 20 mg capsule,delayed release(DR/EC) 20 mg PO BID rosuvastatin 40 mg tablet 40 mg PO DAILY tetracycline 500 mg capsule 1,000 mg PO Q12H Qty: 56 0RF Referrals: Flory Villar MD [Primary Care Provider] - Jt Tang MD [Physician] - 06/27/24 Print Language: New Zealander
[2024-06-24 16:24] LABS: MANUAL DIFF FLAG NO
[2024-06-24 16:26] LABS: Basophils Percent Auto 0.6 % (0-2); Eosinophils Absolute Auto 0.1 X10*3/uL (0.0-0.4); Eosinophils Percent Auto 2.9 % (0-4); Hematocrit 38.2 % (37.0-47.0); Hemoglobin 12.6 g/dl (12.0-16.0); Imm Gran Abs Auto 0.01 X10*3/uL (0.00-0.03); Imm Gran Pct Auto 0.2 % (0.0-0.4); Lymphocytes Absolute Auto 2.3 X10*3/uL (1.2-4.9); Lymphocytes Percent Auto 46.8 % (20-40); Mean Corpuscular Hemoglobin 30.3 pg (27.0-33.0); Mean Corpuscular Volume 91.8 fL (80.0-98.0); Mean Platelet Volume 8.9 fL (9.4-12.3); Monocytes Absolute Auto 0.6 X10*3/uL (0.1-1.2); Monocytes Percent Auto 12.3 % (2-11); Neutrophils Absolute Auto 1.8 x10*3/uL (2.0-8.3); Neutrophils Percent Auto 37.2 % (45-73); Platelet Count 232 X10*3/uL (160-400); Red Blood Count 4.16 X10*6/uL (4.20-5.50); Red Cell Distribution Width 13.1 % (11.0-16.0); White Blood Count 4.9 X10*3/uL (4.8-10.8)
[2024-06-24 16:27] LABS: Appearance Urine Cloudy; Color Urine Yellow; Glucose Urine UA Negative (Negative); Leukocyte Esterase Urine Trace (Negative); Nitrite Urine Negative (Negative); Specific Gravity - Urine 1.025 (1.005-1.025); UMIC TRIGGER UACC YES; Urine Blood Trace (Negative); Urine Ketones Negative (Negative); Urine Protein Negative (Neg-Trace)
[2024-06-24 16:29] LABS: UPreg QC Valid YES; Urine Pregnancy NEGATIVE (NEGATIVE)
[2024-06-24 16:30] LABS: Bacteria Urine Trace (None Seen); Hyaline Casts Urine 0-2 /LPF (0-2); RBC Urine >20 /HPF (0-2); UACC Culture Trigger YES
--- NOTE | 2024-06-24 16:30 | PC.NURSE ---
a&ox4. vss and up to date. pt presents to the ED c/o constant lower abd pain that radiates to back w/ associated urinary urgency as well as hematuria. pt also endorsing nausea/chills. denies any episodes of vomiting/diarrhea/objective fevers. pt reports having follow up w/ dr. ocampo where she had labs obtained and then sent to the ED for abd/pelvis CT. pt medically cleared/discharged home. pt presents today w/ worsening sx. labs/urine obtained and sent to lab. pt on RA w/o difficulty - no sob/wob noted. respirations even/unlabored. pt waiting to have ultrasound completed at this time. plan of care ongoing. call galdamez placed within reach.
[2024-06-24 16:33] LABS: Prothrombin Time 11.8 SEC (10.9-12.4)
[2024-06-24 16:44] LABS: Alanine Aminotransferase 9 U/L (0-31); Albumin Level 4.3 g/dL (3.5-5.0); Alkaline Phosphatase 66 U/L (39-117); Anion Gap 11 (12-20); Aspartate Amino Transferase 17 U/L (5-31); Bilirubin Direct 0.1 mg/dL (0.0-0.5); Bilirubin Total 0.4 mg/dL (0.0-1.0); Blood Urea Nitrogen 9 mg/dL (9-16); Calcium 9.4 mg/dL (8.4-10.2); Carbon Dioxide 24 mmol/L (22-29); Chloride 113 mmol/L (96-108); Creatinine Clr Calc Pharmacy 78.2; Estimated Glomerular Filt Rate > 60; Glucose Random 67 mg/dL (60-115); Lipase 23 U/L (8-78); Potassium 4.2 mmol/L (3.3-5.1); Sodium 144 mmol/L (135-145); Total Protein 7.5 g/dL (6.5-8.0)
[2024-06-24 19:45] VITALS: BP 135/62; PULSE 74; RESP 17; TEMP 36.9; O2SAT 100
[2024-06-24 19:46] VITALS: BP 135/62; PULSE 74; RESP 17; TEMP 36.9; O2SAT 100
== END 2024-06-24 19:48 | disposition home or self-care (01) ==
PROVIDERS: Physician Assistant; Emergency Provider Emergency Medicine Emergency Medical Services; PCP Internal Medicine
DX: R10.30 Lower abdominal pain, unspecified (principal); E78.5 Hyperlipidemia, unspecified; F17.210 Nicotine dependence, cigarettes, uncomplicated; Z79.02 Long term (current) use of antithrombotics/antiplatelets; Z79.899 Other long term (current) drug therapy
CPT/HCPCS: 36415; 76830; 76856; 80048; 80076; 81001; 81025; 83690; 83735; 85025; 85610; 87086; 99284

== ENCOUNTER → 2024-06-24 15:45 | Outpatient (BNV) | payer MEDICAID, SELFPAY | PROVIDERS: Emergency Provider Emergency Medicine Emergency Medical Services; PCP Internal Medicine; Visit Provider Radiology Diagnostic Radiology | DX: R10.30 Lower abdominal pain, unspecified (principal) | CPT/HCPCS: 76830; 76856 ==

== ENCOUNTER 2024-08-01 13:16 | Outpatient (AMB) | payer MEDICAID, SELFPAY ==
[2024-08-01 13:18] VITALS: BMI 20.7
--- NOTE | 2024-08-01 13:18 | MHC.OFFVIS ---
Vital Signs 08/01/24 13:18 Height 5 ft 6 in Weight 128 lb BMI 20.7 Intake Visit Reasons: urine dip per Dr. Tang/DO NOT RS News Gathering Technician Required: No Information Interpreted: non-clinical & clinical Accompanied by: Self / Same As Patient Allergies penicillamine [PENICILLAMINE] Allergy (Intermediate, Verified 08/01/24 13:22) HIVES tomato [TOMATO] Allergy (Unknown, Verified 08/01/24 13:22) UNKNOWN Post menopausal: Yes HPI Comments Details: Presenting for follow-up. Urine dip showed microscopic hematuria, urine culture was negative GC/CT with BV panel were negative Pelvic ultrasound done in the emergency room on 06/23/2024 showed the following: Anteverted uterus measuring 6.3 x 3.1 x 3.9cm with a small fibroid measuring 0.8 x 0.6 x 0.5 cm. Normal endometrial thickness of 0.3cm. There is trace fluid within the endometrial canal. The right ovary is normal in size, measuring 2.7 x 1.3 x 1.6cm, volume of 2.9mL. There is normal echogenicity and vascularity. No lesions. The left ovary is normal in size, measuring 2.3 x 2.1 x 1.8cm, volume of 4.6mL. There is normal echogenicity and vascularity. No lesions. No free fluid. CT scan of abdomen and pelvis done in the emergency room on 06/23/2024 showed the followin mm nonobstructive radiopaque calculi mid pole right kidney unchanged last CT exam 02/08/2024. There is no hydronephrosis on either side. Moderate to significant constipation without signs of obstruction. Mild colonic diverticulosis PFSH Medical History GERD (gastroesophageal reflux disease) Uterine fibroid Smoking Right-sided Wagner's palsy Hyperlipidemia Anxiety Depression Left renal mass Fibromyalgia Surgical History History of hysteroscopy Hx of dilation and curettage History of cervical polypectomy Hx of colonoscopy H/O tubal ligation Family History Sister Breast cancer Brother Heart attack Mother Pancreatic cancer Social History Household Members: None Housing: Apartment Alcohol intake: never Patient Tobacco Use Status: Current everyday Tobacco user Cigarette Packs Per Day: 0.5 Cigarettes Per Day: 10.0 Years Smoked: 25 Female Reproductive History Menstrual Age of Menarche: 11 Review of Systems Const All systems reviewed & are unremarkable except as noted in HPI and below Reports as per HPI and Reports no additional complaints GI Reports no additional complaints Reports no additional complaints Physical Exam Vital Signs: BMI result Body Mass Index 20.7 Assessment & Plan Assessment & Plan (1) Microscopic hematuria: Comment: Nephrolithiasis Code(s): R31.29 - Other microscopic hematuria Category: Medical Plan: Repeat urine dip in the office showed persistent microscopic hematuria. Discussed with the patient the results the pelvic ultrasound, CT scan showing nephrolithiasis. Will refer to Urology for further management. Instructed the patient to call our office back in case a referral appointment is not scheduled, missed or canceled so that we will assist on rescheduling another appointment, the patient verbalized understanding agreed with the plan. (2) Uterine fibroid: Code(s): D25.9 - Leiomyoma of uterus, unspecified Category: Medical Qualifiers: Uterine leiomyoma location: unspecified location Qualified Code(s): D25.9 - Leiomyoma of uterus, unspecified Plan: Discussed with the patient the findings on pelvic ultrasound & the risk of myosarcoma; discussed with the patient the options of treatment including expectant management versus hysterectomy; the pros and cons, risks benefits of each approach were discussed with the patient including the fact that in cases of myosarcoma, surgical treatment can lead to early diagnosis and positively affects the prognosis; after further discussion, the patient decided to proceed with expectant management. Will repeat pelvic ultrasound periodically. Instructions given to patient to call in case any of the following occurs: pressure symptoms, abnormal uterine bleeding, pelvic pain; and to schedule a 12-months pelvic ultrasound (order placed) and a follow-up appointment . All questions answered, the patient verbalized understanding and agreed with the plan . Orders: Orders AMB Urinalysis Dipstick Today R31.29 - Other microscopic hematuria US pelvic and transvaginal Today D25.9 - Leiomyoma of uterus, unspecified Referrals Urology Referral R31.29 - Other microscopic hematuria Coding Level of Care Code Est Pt Level 3 (42768) Diagnoses Microscopic hematuria R31.29 Uterine leiomyoma, unspecified location D25.9 Uterine leiomyoma location: unspecified location
== END 2024-08-01 13:30 | disposition home or self-care (01) ==
LOC: HO.HWS 13:16
PROVIDERS: PCP Internal Medicine; Visit Provider Obstetrics & Gynecology
DX: R31.29 Other microscopic hematuria (principal); D25.9 Leiomyoma of uterus, unspecified
CPT/HCPCS: 99213

== ENCOUNTER → 2024-08-01 13:16 | Outpatient (BNVA) | payer MEDICAID, SELFPAY | PROVIDERS: PCP Internal Medicine; Visit Provider Obstetrics & Gynecology | DX: R31.29 Other microscopic hematuria (principal); D25.9 Leiomyoma of uterus, unspecified | CPT/HCPCS: 99212 ==

== ENCOUNTER 2024-11-02 15:49 | Outpatient (REF) | payer MEDICAID, SELFPAY ==
[2024-11-02 15:59] LABS: MANUAL DIFF FLAG NO
--- OUTSIDE RECORDS SUMMARY | 2024-11-02 16:07 | XMS_ITS | Clinical Summary ---
Author Organization [facility] Address [address] [place] [address] Phone Care Team Providers Care Civil Cad Designer Name Role Phone Flory Villar MD Primary Care Provider [phone] Allergies Active Allergy Reactions Criticality Noted Date Comments Penicillins 12/06/2019 Tomato 12/06/2019 Medications fexofenadine (AMARJIT) 180 MG tablet Take 180 mg by mouth 12/18/2019 Active Cyanocobalamin [address] 2,500 mcg under the tongue 07/05/2019 Active buPROPion XL (WELLBUTRIN XL) 150 MG 24 hr tablet Take 150 mg by mouth 07/05/2019 Active sertraline (ZOLOFT) 100 MG tablet Take 100 mg by mouth 1 (one) time each day Active Active Problems Problem Noted Date Diagnosed Date Weight loss 07/13/2022 Vitamin B12 deficiency 07/13/2022 Tubular adenoma 07/13/2022 Tobacco dependence syndrome 07/13/2022 Major depressive disorder with single episode Leukopenia 07/13/2022 Wagner's palsy 07/13/2022 Allergy to penicillin 07/13/2022 Renal stone 07/13/2022 Personal history of kidney stones 03/31/2022 Mixed anxiety and depressive disorder 03/26/2022 Hyperlipidemia 03/26/2022 Degeneration of cervical intervertebral disc 11/2021 Carpal tunnel syndrome 03/26/2022 Immunizations Immunization Administration Dates Next Due Tdap 10/01/2011 Social History Tobacco Use Types Packs/Day Years Used Date Smoking Tobacco: Some Days Cigarettes Tobacco Cessation:Ready to Q uit: Not Asked; Counseling Given: Not Answered Alcohol Use Standard Drinks/Week Comments Never 0 (1 standard drink = 0.6 oz pur e alcohol) Comments Unknown Sex and Gender Information Value Date Recorded Sex Assigned at Not on file Legal Sex Female 11:29 AM EDT Gender Identity Not on file Sexual Orientation Not on file Last Filed Vital Signs Vital Sign Reading Time Taken Comments Blood Pressure 124/60 02/25/2023 9:06 AM EDT Pulse 97 02/25/2023 9:06 AM EDT Temperature - - Respiratory Rate - - Oxygen Saturation 98% 02/25/2023 9:06 AM EDT Inhaled Oxygen Concentration - - Weight 57.3 kg (126 lb 6.4 oz) 02/25/2023 9:06 A M EDT Height - - Body Mass Index - - Plan of Treatment Upcoming Encounters Date Type Department Care Team (Late st Contact Info) Description 11/29/2024 10:30 AM EDT Office Visit [facility] [address] [address] Bebeto Solares MD [address] [phone] Health Maintenance Due Date Last Done Comments Breast Cancer Screening 1965 Hepatitis B Vaccine (1 of 3 - 19+ 3-dose series) 09/04 Pneumococcal Vaccine: 50+ Years (1 of 2 - PCV) 985 Colorectal Cancer Screening: Annual FOBT 2014 Colorectal Cancer Screening: Colonoscopy 2014 Colorectal Cancer Screening: Sigmoidoscopy 2014 Influenza Vaccine (Season Ended) 2025 Insurance Medicaid [place] Medicaid [place] Care Teams Civil Cad Designer Relationship Specialty Start Date End Date Flory Villar MD [address] [place] [address] PCP - General Internal Medicine 01/12/22
--- OUTSIDE RECORDS SUMMARY | 2024-11-02 16:07 | XMS_ITS | Patient Health Record ---
Author Organization Jose Lopez III, MD Address [address] [place] [address] Care Team Providers Care Child Care Giver Name Role Phone Jian MARTI, [facility] Primary Care Provider Jose Stoner Unavailable [phone] Allergies Allergen (clinical drug ingredient) Drug/Non Drug Allergy documented on EMR Reaction Allergy Type Onset Date Status Penicillin Unknown Drug Allergy Active Tomatoes Unknown Allergy Active Reason For Referral No Information Medications Medication SIG (Take, Route, Frequency, Duration) Notes Start Date End Date Status Sertraline HCl 100 MG TAKE 1 AND 1/2 TAB LETS BY MOUTH EVERY DAY Oral Active Ezetimibe 10 MG TAKE 1 TABLET BY ALIYAH TH EVERY DAY Oral Active B-12 2500 MCG DISSOLVE 1 TABLET UN LUIS EDUARDO THE TONGUE EVERY DAY Sublingual Active Fluconazole 150 MG TAKE 1 TABLET BY ALIYAH TH 1 TIME Oral Active metroNIDAZOLE 500 MG TAKE 1 TABLET BY MO UTH TWICE DAILY WITH FOOD FOR 7 DAYS. AVOID ALCOHOL AND VINEGAR PRODUCTS Oral Active Gabapentin 100 MG TAKE 1 CAPSULE BY MO UTH THREE TIMES DAILY Oral Active Rosuvastatin Calcium 40 MG TAKE 1 TABLET BY MOUTH DAILY Oral Active Social History Tobacco Use: Social History Observation Description Date Details (start date - stop date) Current Smoker NA - NA Tobacco Use/Smoking Question Answer Notes Patient is a current smoker How often do you smoke cigarettes? every day How many cigarettes a day do you smoke? 11-20 How soon after you wake up d o you smoke your first cigarette? 6-30 minutes Are you interested in quitting? Not ready to becka t Additional Findings: Tobacco User Modera te cigarette smoker (10-19 cigs/day) Problems Problem Type SNOMED Code ICD Code Onset Dates Problem Status W/U Status Risk Notes Problem 72738367 Weight loss (R63.4) Active confirmed She weighs 128 pounds today and 129 on her initial visit. She now weighs 133, and this problem has resolved.. Problem Depression (863847401) Depression (F32.9) Active confirmed Problem 078134804 Tubular adenoma (D36.9) Active confirmed She is up-to-date on screening colonoscopie s. Problem 857738897 Mixed hyperlipidemia (E78.2) Active confirmed Her lipids can be checked periodically . Problem Wagner's palsy (G51.0) Active confirmed Problem Vitamin B12 deficiency (694920952) Vitamin B12 deficiency (E53.8) Active confirmed She will continue on B12 supplementat ion. Problem 56149808 Tobacco dependence (F17.200) Active confirmed We discussed her smoking at length. She is has been made aware of the risks of smoking, which include malignancy various organs and chronic lung disease. We discussed a smoking cessation plan of reducing her tobacco use. I recommended the use of nicotine patches and gum. She was made aware of smoking cessation programs at the local hospitals and [facility]. Problem 77009845 Penicillin allergy (Z88.0) Active confirmed Problem 56846225 Chronic leukopenia (D72.819) Active confirmed Her white blood cell count is now in the normal range. Problem [id number] Carpal tunnel syndrome on both sides (G56.03) Active confirmed Her symptoms are minimal at this time and she has declined surgery in the past. Plan Of Treatment Pending Test Test Name Order Date PREALBUMIN 01/26/2022 PROFILE, RANDOM (COMPREHENSIVE METABOLIC ) 01/26/2022 PROFILE, RANDOM (COMPREHENSIVE METABOLIC ) 02/09/2022 PROFILE, RANDOM (COMPREHENSIVE METABOLIC ) 06/01/2022 FREE T4 (FT4) 01/26/2022 TSH (THYROID STIMULATING HORMONE) 2021 CBC w DIFF 01/26/2022 CBC w DIFF 06/01/2022 CBC w DIFF 02/09/2022 SED RATE (ESR) 06/01/2022 IMMUNOFIXATION PANEL, SERUM (IEP) 2021 PROTEIN ELECTROPHORESIS, SERUM Vitamin B12 06/01/2022 Insurance Providers Payer Name Payer Address Payer Phone Subscriber Number Group Number Insured Name Patient Relationship to Insured Coverage Start Date Coverage End Date [place] [address] [place]IECER [place] [id number] [phone] [id number] SHERON EDWARDS Self - patient is the insured Medical (General) History Medical History History ICD Code Depression F32.9 Vitamin B12 deficiency E53.8 Hyperlipidemia 3 x 4 stone mid right kidney 2019. Tubular adenoma 2019. DJD cervical spine Carpal tunnel syndrome, declines surgery 2019. Wagner's palsy Tobacco dependence Penicillin allergy Surgical History Surgery Date(Month/Year) Renal Biopsy 2006 Laparoscopy for bilateral tubal ligation Hysteroscopy and D&C removal of polyp
--- OUTSIDE RECORDS SUMMARY | 2024-11-02 16:07 | XMS_ITS | Clinical Summary ---
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 Name Role Phone Flory Villar MD Primary Care Provider [phone] Surgical History Surgery Date Site/Laterality Comments OTHER SURGICAL HISTORY PROCEDURE: ---- OTHER ----; COMMENT: kidney surgery left TUBAL LIGATION PROCEDURE: HISTORICAL TUBAL LIGATION Medical History Medical History Date Comments DDD (degenerative disc disea se), cervical DX:DDD (degenerative disc di sease), cervical CTS (carpal tunnel syndrome) DX: CTS (carpal tunnel syndrome) Anxiety and depression DX:Anxiet y and depression Family History Medical History Relation Name Comments Melanoma Neg Hx Social History Tobacco Use Types Packs/Day Years Used Date Smoking Tobacco: Every Day Smokeless Tobacco: Never Alcohol Use Standard Drinks/Week Comments Yes 0 (1 standard drink = 0.6 oz pur e alcohol) Comments Unknown Sex and Gender Information Value Date Recorded Sex Assigned at Not on file Legal Sex Female 4:30 PM EST Gender Identity Not on file Sexual Orientation Not on file Obstetrics History Plan of Treatment Health Maintenance Due Date Last Done Comments Breast Cancer Screening 1965 DTaP,Tdap,and Td Vaccines (1 - Tdap) 1984 Hepatitis B Vaccines (1 of 3 - 19+ 3-dose series) 1984 Pneumococcal Vaccine: 50+ Ye ars (1 of 2 - PCV) 1984 Pneumococcal Vaccine: Pediat rics (0 to 5 Years) and At-Risk Patients (6 to 64 Years) (1 of 2 - PCV) 1984 Cervical Cancer Screening: P ap Smear 1986 Zoster Vaccines (1 of 2) 09/05/2015 Colorectal Cancer Screening: Colonoscopy 05/20/2022 Depression Screening 05/20/2022 HIV Screening 05/20/2022 Hepatitis C Screening 05/20/2022 Social Influencers of Health Screening 05/20/2022 COVID-19 Vaccine ( - 2023-2 5 season) 2024 Influenza Vaccine (Season Ended) 2025 RSV Immunization Adult Patie nts (1 - 1-dose 75+ series) 2040 HIB Vaccines Aged Out No longer eligi ble based on patient's age to complete this topic HPV Vaccines Aged Out No longer eligi ble based on patient's age to complete this topic Hepatitis A Vaccines Aged Out No long er eligible based on patient's age to complete this topic IPV Vaccines Aged Out No longer eligi ble based on patient's age to complete this topic MMR Vaccines Aged Out No longer eligi ble based on patient's age to complete this topic Meningococcal ACWY Vaccine Aged Out N o longer eligible based on patient's age to complete this topic Meningococcal B Vaccine Aged Out No l onger eligible based on patient's age to complete this topic RSV Immunization Patients Un paty 20 months Aged Out No longer eligible b ased on patient's age to complete this topic Varicella Vaccines Aged Out No longer eligible based on patient's age to complete this topic Care Teams Non Licensed Nuclear Equipment Operator Relationship Specialty Start Date End Date Flory Villar MD [address] [place] [address] PCP - General Internal Medicine 06/15/19
[2024-11-02 17:15] LABS: Basophils Absolute Auto 0.1 X10*3/uL (0.0-0.2); Basophils Percent Auto 0.9 % (0-2); Eosinophils Absolute Auto 0.1 X10*3/uL (0.0-0.4); Eosinophils Percent Auto 2.6 % (0-4); Hematocrit 37.4 % (37.0-47.0); Hemoglobin 12.5 g/dl (12.0-16.0); Lymphocytes Absolute Auto 2.7 X10*3/uL (1.2-4.9); Lymphocytes Percent Auto 50.3 % (20-40); Mean Corpuscular HGB Conc 33.4 g/dl (31.0-35.0); Mean Corpuscular Hemoglobin 30.5 pg (27.0-33.0); Mean Corpuscular Volume 91.2 fL (80.0-98.0); Mean Platelet Volume 9.7 fL (9.4-12.3); Monocytes Absolute Auto 0.4 X10*3/uL (0.1-1.2); Monocytes Percent Auto 8.3 % (2-11); Neutrophils Percent Auto 37.9 % (45-73); Platelet Count 251 X10*3/uL (160-400); Red Cell Distribution Width 13.5 % (11.0-16.0); White Blood Count 5.3 X10*3/uL (4.8-10.8)
[2024-11-02 17:49] LABS: Alanine Aminotransferase 18 U/L (0-31); Albumin Level 4.4 g/dL (3.5-5.0); Alkaline Phosphatase 73 U/L (39-117); Anion Gap 12 (12-20); Aspartate Amino Transferase 19 U/L (5-31); Bilirubin Total 0.3 mg/dL (0.0-1.0); Blood Urea Nitrogen 7 mg/dL (9-16); Calcium 9.5 mg/dL (8.4-10.2); Carbon Dioxide 27 mmol/L (22-29); Chloride 108 mmol/L (96-108); Cholesterol 243 mg/dL (<200); Estimated Glomerular Filt Rate > 60; Glucose Random 81 mg/dL (60-115); HDL Cholesterol 56 mg/dL (>40); LDL Cholesterol Calculated 155 mg/dL (<100); Sodium 143 mmol/L (135-145); Total Protein 7.4 g/dL (6.5-8.0); Triglycerides 164 mg/dL (<150)
== END 2024-11-02 15:50 | disposition home or self-care (01) ==
LOC: HO.LAB 15:49
PROVIDERS: PCP Internal Medicine; Visit Provider Internal Medicine
DX: Z00.00 Encounter for general adult medical examination without abnormal findings (principal); R31.29 Other microscopic hematuria; F32.2 Major depressive disorder, single episode, severe without psychotic features; E78.00 Pure hypercholesterolemia, unspecified; Z72.0 Tobacco use; Z86.0101 Personal history of adenomatous and serrated colon polyps
CPT/HCPCS: 36415; 80053; 80061; 85025

== ENCOUNTER 2024-11-20 16:05 | Outpatient (REF) | payer MEDICAID, SELFPAY ==
--- OUTSIDE RECORDS SUMMARY | 2024-11-20 17:02 | XMS_ITS | Clinical Summary ---
[facility] Organization [facility] [address] [place] [address] Care Team Providers Care Screen Vent Binder Name Role Phone Flory Villar MD Primary Care Provider [phone] Surgical History Surgery Date Site/Laterality Comments OTHER [...] age to complete this topic Care Teams Screen Vent Binder Relationship Specialty Start Date End Date Flory Villar MD [address] [place] [address] PCP - General Internal Medicine 06/15/19
[2024-11-21 08:04] LABS: Syphilis Screen Nonreactive (Nonreactive)
[2024-11-21 11:14] LABS: CT PCR NOT DETECTED (Not Detect.); NG PCR NOT DETECTED (Not Detect.)
[2024-11-23 19:27] LABS: HIV 1 Antibody NEGATIVE (NEGATIVE); HIV 2 Antibody NEGATIVE (NEGATIVE)
[2024-11-27 10:12] LABS: HIV-1 RNA TMA Qualitative Not Detected (Not Detected)
== END 2024-11-20 16:06 | disposition home or self-care (01) ==
LOC: HO.LAB 16:05
PROVIDERS: PCP Internal Medicine; Visit Provider Internal Medicine
DX: Z11.3 Encounter for screening for infections with a predominantly sexual mode of transmission (principal)
CPT/HCPCS: 86701; 86702; 86780; 87491; 87591

== ENCOUNTER 2025-03-08 14:32 | Outpatient (REF) | payer MEDICAID, SELFPAY ==
[2025-03-08 14:50] LABS: MANUAL DIFF FLAG NO
--- OUTSIDE RECORDS SUMMARY | 2025-03-08 16:17 | XMS_ITS | Clinical Summary ---
[facility] Organization [facility] Address [address] [place] [address] Care Team Providers Care Sap Plant Maintenance Consultant Name Role Phone Flory Villar MD Primary Care Provider [phone] Surgical History Surgery Date Site/Laterality Comments OTHER [...] ars (1 of 2 - PCV) 1984 Cervical Cancer Screening: P ap Smear 1986 Zoster Vaccines (1 of 2) 09/05/2015 Colorectal Cancer Screening: Colonoscopy 05/20/2022 HIV Screening 05/20/2022 Hepatitis C Screening 05/20/2022 Social Influencers of Health Screening 05/20/2022 Depression Screening 06/21/2024 COVID-19 Vaccine (1 - 2023-2 5 season) 2025 Influenza Vaccine (#1) 2025 RSV Immunization Adult Patie nts (1 [...] age to complete this topic Care Teams Sap Plant Maintenance Consultant Relationship Specialty Start Date End Date Flory Villar MD [address] [facility] [address] [place], [place] PCP - General Internal Medicine 06/15/19
--- OUTSIDE RECORDS SUMMARY | 2025-03-08 16:17 | XMS_ITS | Clinical Summary ---
Author Organization [facility] Address [address] [facility] [address] [place] [address] Phone Care Team Providers Care Global Head [employer] Name Role Phone Flory Villar MD Primary Care Provider Allergies Active Allergy Reactions Criticality Noted Date [...] Active Problems Problem Noted Date Diagnosed Date Renal stone 07/13/2022 Personal history of kidney stones 03/31/2022 Resolved Problems Problem Noted Date Diagnosed Date Resolved Date Weight loss 07/13/2022 01/03/2025 Vitamin B12 deficiency 07/13/202201/03 Tubular adenoma 07/13/2022 01/03/2025 Tobacco dependence syndrome 07/13/2022 01/03/2025 Major depressive disorder with single episode 07/13/1901/03/2025 Leukopenia 07/13/2022 01/03/2025 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/2025 Allergy to penicillin 07/13/20222024 Mixed anxiety and depressive disorder 03/26/2022 01/03/2025 Hyperlipidemia 03/26/2022 01/03/2025 Degeneration of cervical intervertebral disc 01/03/2025 Carpal tunnel syndrome 03/26/202201/03 Encounters Date Type Department Care Team Description 02/07/2025 Office Communication [facility] [address] [address] Laurence Felix [place] from Last 3 Months Immunizations Immunization Administration Dates Next Due Tdap [...] Mass Index - - Plan of Treatment Health Maintenance Due Date Last Done Comments Breast Cancer Screening 1965 Hepatitis B Vaccine (1 of 3 - 19+ 3-dose series) 09/04 Pneumococcal Vaccine: 50+ Years (1 of 2 - PCV) 985 Colorectal Cancer Screening: Annual FOBT 2014 Colorectal Cancer Screening: Colonoscopy 2014 Colorectal Cancer Screening: Sigmoidoscopy 2014 Influenza Vaccine (#1) 2025 Insurance Medicaid [place] Care Teams Global Head [employer] Relationship Specialty Start Date End Date Flory Villar MD [address] [place] [address] PCP - General Internal Medicine 01/12/22
[2025-03-08 17:01] LABS: Hematocrit 36.4 % (37.0-47.0); Hemoglobin 12.1 g/dl (12.0-16.0); Imm Gran Abs Auto 0.00 X10*3/uL (0.00-0.03); Imm Gran Pct Auto 0.0 % (0.0-0.4); Lymphocytes Absolute Auto 2.1 X10*3/uL (1.2-4.9); Mean Corpuscular HGB Conc 33.2 g/dl (31.0-35.0); Mean Corpuscular Hemoglobin 30.8 pg (27.0-33.0); Mean Corpuscular Volume 92.6 fL (80.0-98.0); NRBC Abs Auto 0.000 X10*3/uL (0.0-0.012); NRBC Pct Auto 0.0 /100WBC (0.0-0.2); Platelet Count 263 X10*3/uL (160-400); Red Blood Count 3.93 X10*6/uL (4.20-5.50); White Blood Count 4.7 X10*3/uL (4.8-10.8)
[2025-03-08 17:45] LABS: Alanine Aminotransferase 12 U/L (0-31); Albumin Level 4.4 g/dL (3.5-5.0); Alkaline Phosphatase 71 U/L (39-117); Anion Gap 9 (12-20); Aspartate Amino Transferase 16 U/L (5-31); Blood Urea Nitrogen 7 mg/dL (9-16); Calcium 9.3 mg/dL (8.4-10.2); Carbon Dioxide 31 mmol/L (22-29); Chloride 109 mmol/L (96-108); Cholesterol 237 mg/dL (<200); Estimated Glomerular Filt Rate > 60; HDL Cholesterol 53 mg/dL (>40); Potassium 4.4 mmol/L (3.3-5.1); Sodium 145 mmol/L (135-145); Total Protein 7.0 g/dL (6.5-8.0); Triglycerides 102 mg/dL (<150)
[2025-03-08 18:01] LABS: Thyroid Stimulating Hormone 1.23 uIU/mL (0.32-4.0)
== END 2025-03-08 14:33 | disposition home or self-care (01) ==
LOC: HO.LAB 14:32
PROVIDERS: Visit Provider Internal Medicine
DX: R53.83 Other fatigue (principal); F32.9 Major depressive disorder, single episode, unspecified; E78.00 Pure hypercholesterolemia, unspecified; Z86.0101 Personal history of adenomatous and serrated colon polyps
CPT/HCPCS: 36415; 80053; 80061; 84443; 85025